=== PATIENT | female | born 2000 | race Caucasian/White ===

== ENCOUNTER → 2019-12-06 | Outpatient (CLI) | payer SELFPAY | END | disposition home or self-care (01) | PROVIDERS: Visit Provider Obstetrics & Gynecology | DX: Z12.4 Encounter for screening for malignant neoplasm of cervix (principal); Z11.3 Encounter for screening for infections with a predominantly sexual mode of transmission ==

== ENCOUNTER → 2019-12-15 14:56 | Outpatient (CLI) | payer OTHER, SELFPAY ==
[2019-12-15 15:48] LABS: Color, Urine Yellow (Yellow); Glucose, Dipstick Normal (Normal); Ketone-Dipstick Negative (Negative); Leukocyte Esterase-Dipstick 25 /ul (Negative); Nitrite-Dipstick Negative (Negative); Occult Blood-Urine Negative /ul (Negative); Protein-Dipstick Negative (Negative); Specific Gravity, Urine 1.015 (1.002-1.030); Urine Bilirubin Dipstick Negative (Negative); Urine Clarity Sl. Cloudy (Clear); Urine Urobilinogen Normal (Normal)
[2019-12-15 16:00] LABS: Absolute Lymphocyte Count 1.94 X10^3/uL (0.83-4.51); Absolute Neutrophil Count 7.3 X10^3/uL (2.0-7.7); Basophil# 0.02 X10^3/uL; Basophil% 0.2 % (0-1); Eosinophil# 0.09 X10^3/uL; Eosinophils% 0.9 % (0-5); Hematocrit 35.6 % (37-47); Hemoglobin 12.4 g/dL (12.0-15.0); Lymphocyte # 1.94 X10^3/ul (4.0); Lymphocyte % 19.3 % (19-41); Mean Corp Hgb Conc 34.8 g/dL (32-36); Mean Corpuscular Hgb 30.5 pg (27.0-32.0); Mean Corpuscular Volume 87.5 fL (81-99); Mean Platelet Vol. 9.6 fl (6.2-12.0); Monocyte# 0.65 X10^3/uL; Monocyte% 6.5 % (0-10); NRBC Flagged by Analyzer 0 % (0-5); Neutrophil # 7.31 X10^3/uL (2.7-7.7); Neutrophil % 72.6 % (47-70); Platelet Count 214 K/mm3 (150-450); RBC Distribution Width CV 12.7 % (11.6-14.6); RBC Distribution Width SD 40.2 fl (35.1-43.9); Red Blood Count 4.07 M/mm3 (4.2-5.4); White Blood Count 10.1 K/mm3 (4.4-11.0)
[2019-12-15 16:38] LABS: Thyroid Stim Hormone (TSH) 0.97 uIU/mL (0.358-3.74)
[2019-12-18 10:26] LABS: HIV - WCH Non-Reactive (Nonreactive); Hepatitis B Surface Antigen Non-Reactive (Nonreactive); Hepatitis C Antibody Non-Reactive (Nonreactive); Rubella IgG < 0.2 IU/mL
[2019-12-21 03:50] LABS: Prenatal RPR NONREACTIVE (NONREACTIVE)
== END ==
PROVIDERS: Visit Provider Obstetrics & Gynecology
DX: Z34.81 Encounter for supervision of other normal pregnancy, first trimester (principal)
CPT/HCPCS: 36415; 81002; 84443; 85025; 86703; 86762; 86803; 87340

== ENCOUNTER → 2020-04-11 09:28 | Outpatient (CLI) | payer OTHER, SELFPAY ==
[2020-04-11 11:27] LABS: Hematocrit 33.4 % (37-47); Hemoglobin 11.2 g/dL (12.0-15.0); Mean Corp Hgb Conc 33.5 g/dL (32-36); Mean Corpuscular Hgb 31.1 pg (27.0-32.0); Mean Corpuscular Volume 92.8 fL (81-99); Mean Platelet Vol. 9.2 fl (6.2-12.0); Platelet Count 253 K/mm3 (150-450); RBC Distribution Width CV 11.7 % (11.6-14.6); RBC Distribution Width SD 39.5 fl (35.1-43.9); White Blood Count 10.8 K/mm3 (4.4-11.0)
[2020-04-11 11:38] LABS: Glucose Challenge Gest 1H 50g 108 mg/dL (70-140)
== END ==
PROVIDERS: Visit Provider Obstetrics & Gynecology
DX: Z34.83 Encounter for supervision of other normal pregnancy, third trimester (principal)
CPT/HCPCS: 36415; 82950; 85027; 86900; 86901

== ENCOUNTER → 2020-05-31 | Outpatient (CLI) | payer OTHER, SELFPAY | END | disposition home or self-care (01) | LOC: LABSPEC 13:26 | PROVIDERS: Visit Provider Obstetrics & Gynecology | DX: Z36.85 Encounter for antenatal screening for Streptococcus B (principal) | CPT/HCPCS: 87081 ==

== ENCOUNTER → 2020-06-18 17:34 | Outpatient (CLI) | payer OTHER, SELFPAY | PROVIDERS: Visit Provider Obstetrics & Gynecology | DX: Z20.828 Contact with and (suspected) exposure to other viral communicable diseases (principal) | CPT/HCPCS: 87635; 94799; U0003 ==

== ENCOUNTER 2020-07-08 06:44 | Inpatient (IN) | payer SELFPAY, OTHER ==
[2020-07-08] VITALS (37 sets, daily range): BP systolic 110–130; BP diastolic 55–80; PULSE 55–127; TEMP 36.6–37.9; O2SAT 88–100; BMI 29.0
[2020-07-08] MEDS: Lactated Ringers 1,000 ML 50 ML IV (07:27)
[2020-07-08] MEDS: Oxytocin 30 units/NS 500 ml 30 UNITS/500 ML IV.SOLN IV (07:42)
[2020-07-08 07:48] LABS: Absolute Lymphocyte Count 1.82 X10^3/uL (0.83-4.51); Absolute Neutrophil Count 6.4 X10^3/uL (2.0-7.7); Basophil# 0.03 X10^3/uL; Basophil% 0.3 % (0-1); Eosinophil# 0.08 X10^3/uL; Eosinophils% 0.9 % (0-5); Hemoglobin 10.2 g/dL (12.0-15.0); Lymphocyte # 1.82 X10^3/ul (4.0); Lymphocyte % 19.8 % (19-41); Mean Corp Hgb Conc 32.9 g/dL (32-36); Mean Corpuscular Hgb 27.6 pg (27.0-32.0); Mean Corpuscular Volume 83.8 fL (81-99); Mean Platelet Vol. 9.7 fl (6.2-12.0); Monocyte# 0.79 X10^3/uL; Monocyte% 8.6 % (0-10); NRBC Flagged by Analyzer 0 % (0-5); Neutrophil # 6.39 X10^3/uL (2.7-7.7); Neutrophil % 69.6 % (47-70); Platelet Count 184 K/mm3 (150-450); RBC Distribution Width CV 14.5 % (11.6-14.6); RBC Distribution Width SD 43.1 fl (35.1-43.9); White Blood Count 9.2 K/mm3 (4.4-11.0)
--- NOTE | 2020-07-08 08:14 | HP.PCM_ITS ---
History and Physical Date of Admission: 07/08/[address] [facility] ANTEPARTUM RECORD - HISTORY AND PHYSICAL (07/08/2020) Name: GREGORY RANKIN History Of This : This is a 20-year-old G1, P0 who presents for postdates induction. care has otherwise been uneventful OB Physician: FRANCISCO 's Physician: UNDECIDED ...................................................................... : 2000 Age: 20 Address: [address] [place] [address] Phone: ([phone] ([phone] Insurance Carrier: [facility] [id number] Emergency Contact: ...................................................................... Final CHARU: 06/28/20 By Ultrasound: PARITY: (G-Total Pregnancies P-Fullterm,Premature,Induced AB,Spont AB, Ectopics, Multiple,Living) CHARU CONFIRMATION: By LMP: 09/22/19 Final CHARU: 06/28/20 OB PROBLEM LIST: Self pay. Declines AFP and CF testing. Please enc office Childbirth and Classes. ALLERGIES: No Known Drug Allergies MEDICATIONS: Supplement (s) [No Strength] Super Mom vitamins SOCIAL HISTORY: Smoking - Never Alcohol Use - None Diet - moderate, balanced diet, caffeine < 2 drinks per day and Water intake tries for 2-3 liters daily Lifestyle - Exercise - active w home and chores. Enc to walk 20 min daily. 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 Drug Use - denies use of street drugs Sexual Activity - ACTIVE ONE PARTNER Residence - owns a home Place of - [place] Spouse-Sig Other Name - Terrence Rankin Spouse-Sig Other Occupation - Stairbuilder for [employer] Spouse-Sig Other Phone No - home phone [phone] PRIOR DELIVERY HISTORY DEL DATE GEST LAB WT LB WT OZ TYPE ANES LABOR TX ANTEPARTUM FLOW CHART VISIT GE RTC FU F F IA U U DATE WK MD WKS HT PN HR M SS BP ED WT IA GL D EF ST __ ____ ___ __ __ ___ __ __ __ ___ __ __ __ ___ __ Jun 41 JM 6 41 V + + 110/66 0 165 - - 2 50 -3 Jun 39 CH 1 39 V + + 122/54 0 162 tr - ft -- -- 04 Jun 38 CH 1 37 V + + 110/68 sl 164 - - 30 May 37 CH 1 36 V + + 118/64 0 164 - - 23 May 36 CH 1 37 V + + 110/80 sl 164 - - May CH 1 36 V + + 110/80 sl 164 tr - Apr JMW 3 33 V + + 116/66 0 161 tr ne May 14 CH 2 30 V + + 124/62 0 159 - - April 11 CH 2 28 + + 110/58 0 156 - - 07 April 08 CH 2 25 + + 104/72 0 149 - - 07 Feb 21 / 143 28 Dec 31 CH 4 116/60 0 134 ne ne Nov 26 CH 4 on / 0 131 - - ANTEPARTUM NOTE(S): Jul 05 2020: Jun 27 2020: feeling well. Having cramps. Cervix check. Jun 18 2020: no complaints Jun 13 2020: Jun 06 2020: feeling well. GBS and LARC today. May 31 2020: feeling well. GBS and LARC papers done. May 09 2020: Good FM Apr 24 2020: Apr 11 2020: see note Mar 21 2020: see note Feb 20 2020: Jan 12 2020: Declines AFP and Declines CF Dec 15 2019: COMPREHENSIVE ANTEPARTUM NOTE(S): Jul 05 2020: Gregory is here at 41 w 0 d for a NST, for post-dates. EEFM/NST explained. She states that she feels okay, and reports good FM. She feels irregular mild cramping. Denies spotting/LoF. No edema noted. NST reactive, read per Dr. Albert Rankin. Three ctx's noted on EEFM during NST, Gregory states that she did not feel these. AW Jul 05 2020: Pt agreeable to IOL post dates. Scheduled for 06/07 at 0700. NST reactive. JM Jun 27 2020: Having some more cramping over the last week. Reports good FM. FHR 150. First SVE today ft/thick/high. Discussed intercourse and EPOO to help soften the cervix. Next visit if at least 1cm may want membrane sweep to avoid IOL. Discussed NST at next visit. If everything is going well and still , will return the following Wednesday for NST and PNV with IOL to be scheduled at that time. If needing IOL would like a gentle AROM. Understands 5-1-1 rule and when to call. If unsure about start of labor to call in. - CH Jun 18 2020: Gregory is here with SO for PNV. Good FM. Sl edema in feet. No complaints or concerns. Denied SVE. MK Jun 18 2020: FM+. FHR 136. Some cassie casey and same discharge as last week. Getting Covid tests today. Reviewed s/s of labor and when to call. States understanding. To return in 1 week for visit. - Jun 13 2020: Gregory is her for PNV today. Good FM. No edema. She is doing good ready for baby to get here. Medications and allergies reviewed today. LJW Jun 13 2020: +FM. FHR 150. Feels like baby has dropped with a lot more low pelvic pressure. Having more discharge, but no contractions yet. Covid testing orders wrote for her and to get done next week. Will do SVE next week with baby being so low. Wishes to avoid IOL and go on her own. To return in 1 week. - Jun 06 2020: Reports +FM. FHR 142. Vertex with lie on maternal left side. Discussed slighter movements now. Her and her will get covid testing done in a couple of weeks. Will defer SVE until after 38 weeks. Having numbness and itngling in hands. Discussed carpal tunnel in . Hers is worse overnight. To do hand/finger exercises before bed and to sleep with them elevated on pillows. Can take Tylenol or soak them in warm water even. To returnin 1 week. - Jun 04 2020: H taken to OB. tkg May 31 2020: Reports +FM. Was unsure if having cassie casey or movements. Discussed how to tell the difference. Educatd on SROM and how to tell the difference between urination, where to go after hours, and web services manager information. Reports mild pedal edema, but good today. Increase water, elevation, and compression socks if needed. Will return in 1 week. - May 09 2020: Reports +FM. FHR_. Has with her today. Feeling well. Discussed early signs and symptoms of labor and when to call. To return in 2 weeks for rotine PNV- May 09 2020: Gregory is her for PNV. Has with her today. FM is good. She is feeling well. She states that she had some swelling 1 day but nothing to speak of. No other complaints or concerns were voiced. Medication and Hx reviewed. LJW Apr 24 2020: Gregory is doing well. Good FM. Voicing No concerns today. Apr 24 2020: Reports +FM. FHR 140. Feeling well. Reviewed 3rd trimester labs. Has small ordaz on her butt that shes concerned about. Discussed stretch ordaz can appear on the abdomen, bottom, thighs, legs etc. To keep skin hydrated and it's mostly genetics. Wants to bring to next visit. Which is okay. To return in 2 weeks for routine PNV. [facility] Apr 11 2020: Gregory is here for a PNV. 28 weeks and 6 days. Good FM. No edema reported but she says she noticed her veins are more apparent than usual. No complaints or concerns expressed at this time. 28 week labs due today at 9:50am. Apr 11 2020: Feeling well today with +FM. FHR 148. Discussed web services manager list and web services manager vs family MD. Will call them and see who would take their family. Is getting labs drawn today and understands no news is good news. Will call with abnormals and if needing a 3 hour GTT. Discussed FM and kick counts in final trimester. Understands when to call. TO return in 2 weeks for routine PNV. [facility] Mar 21 2020: Gregory is here for a PNV. States she was feeling good FM, but it has decreased in the past 2 days. No movement at all yesterday /, felt FM 1- 2x this morning 03/21. No edema reported. Gave glucola and instructions for next visit. Mar 21 2020: 26wk gest. Reports +FM. FHR 158. Reviewed glucola and 3rd trimester labs with rhogam to be given at that time. States is O- blood type as well and will bring in his card next visit to avoid rhogam. Was feeling decreased movements, but discussed not regular until 3rd trimester. Understands now how to do kick counts and when to call. To return in 3 weeks and continue Q2 week appts. - Feb 20 2020: Telehealth appt due to Covid-19 precautions. Home phone only for calls. Did not want anatomy US so not scheduled to come in to the office. Reports feeling FM now. Is generally feeling well. Was getting very tired so started taking liquid iron in the afternoon. She feels like this helps with evening fatigue a lot. Is able to stay home and is avoiding crowds etc. Understands in 4 weeks we will liekly do telehealth appt again, unless things look better. Then we could do in person or if she has any concerns. She was worried about how baby was doing, but now that she is feeling movements shes much less concerned. Discussed sporatic movements until 28 weeks so to not get concerned if theres no pattern etc. Does understand that the office is still open daily with the 24/ nurse triage line so is she does have questions or concerns to let us know. Will do glucola and CBC at 28 week appt with rhogam so will need to come in for that one. Wants to sign up for March class. Encouraged to call the office commercial front load operator and speak with them about scheduling because I was unsure whether Fox class had been cancelled for Covid or not. SHe will call after. 12 minutes spent on the phone. - Jan 12 2020: (*) Routine PNV. Discussed FM felt sometime between 16-20 or so weeks with first time moms, but not regular until 28 weeks. FHR today 150. Feeling well still having nausea. PNV is making her sick so will cut in half. Wants to take extra calcium for her teeth and advised milk intake. In 6 weeks will return for PNV and does not want anatomy US. - Dec 15 2019: Gregory and her , Terrence are here for NOB nurse visit planning a vag del at [facility] with CHARU 8-14-20 uncertain of epidural or ped care post discharge. She plans to breastfeed. 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 They are pleased about the . Gregory is a lifetime non smoker, non drinker and denies street drug use past or present. Her diet is well balanced w minimal caffeine and 2-3 liters of water most days. The importance of protein in her diet discussed. She is active w her home and chores. Enc walking 20 min daily unless inclement weather. Genetics Screening form completed noting a cousin w spina bifida. They decline AFP and CF tests. Warning signs in pg discussed as well as OTC meds ok to take, lifting restrictions of 20-25#, reaching the office after hours and seatbelt use. Advised to ALWAYS wear seatbelt no matter which seat position in the vehicle and wear it low under her abdomen. Currently they only wear it if passenger in the front seat. Her medical history includes chickenpox and whooping cough. They have no cats. She is aware of litter box issues. Routine labs drawn without u tox or suni screens. US done today. They have a copy of What to Expect. Info on office Childbirth and Classes given. Enc to call w any concerns. Visit took approx 45 min. Roe DASH. Dec 15 2019: NOB US today with IUP seen, dates consistent with LMP. CHARU 06/15 03/04 with GA 12.0wk. FHR 144. NOB RN appointment with EPDS=4. States mild anxiety, but not much. Is okay right now. Has no questions over everything Kathrine reviewed. Still has questions on if she is taking too much folic acid. Taking over 2000mcg a day. Reminded her that her normal has plenty in it and to stop taking the extra two folic acid tablets a day. Still reports mild nausea, but chews peppermint gum which helps. Reminded her she shjould start feeling better in the next couple of weeks with hormones leveling off. Will get labwork today. Understands no news is good news. Reviewed pap and negative cultures. TO return in 4 weeks for routine PNV. - Dec 06 2019: Gregory is being seen for missed menses. Pt is new to facility. is with pt for visit today. UPT in office is positive. LMP 11-5-19. pt is about 10 weeks and 5 days. CHARU 06-28-20. Pap due today and cultures to be added. Pt has some nausea on and off. She is taking pnv and super mom vitamins. Medications and allergies are up to date. AM Dec 06 2019: Missed mesnes with LMP 11-5-19. CHARU 06-28-20 with GA 10w5d. Here with who appears supportive. First . Has a mother who delivered on in the hospital at [place] and a ENRRIQUE who delivered at the center. Not much or infant exposure. Oriented to practice and CNM care with OB collaboration. Educated on Pap procedure and walked her through it, tolerated well for first exam. Explained if negative then repeat in 3 years. Head to toe negative. Denies chronic health issues. Has had nausea on and off, but feeling better. NOB packet reviewed including practice education, classes, registration, OTC medication, common problem list, and diet/exercise. Reviewed visit schedule, US schedule and lab schedule and what to expect at each visit. Will return in 2 weeks for routine PNV with NOB US, NOB RN appt, and labs. States no questions or concerns. -CH REVIEW OF SYSTEMS: GENERAL - Denies fever, or chills SKIN - Denies rash, new skin lesions, or change in moles EYES - Denies blurred vision, or change in visual acuity EARS - Denies ear pain, or difficulty hearing NOSE - Denies nasal congestion, discharge, or bleeding MOUTH - Denies sore throat, or difficulty swallowing NECK - Denies pain or swelling RESPIRATORY - Denies shortness of breath, cough, wheezing CARDIOVASCULAR - Denies palpitations, chest pain, orthopnea, PND, peripheral edema, syncope or claudication GASTROINTESTINAL - Denies nausea, vomiting, diarrhea, constipation, Denies abdominal pain, melena and or bright red blood GENITOURINARY - Denies dysuria, frequency of urination, urgency, or hesitancy MUSCULOSKELETAL - Denies joint or muscle pain, or back pain NEUROLOGICAL - Denies localized numbness, weakness, or tingling PSYCHIATRIC - Denies depression, anxiety, substance abuse or suicide attempts ENDOCRINE - Denies heat or cold intolerance, weight loss or gain, increasing thirst HEMATO-IMMUNOLOGIC - Denies easy bruising, bleeding, oral ulcerations or recurrent infections GENETICS SCREENING: Age 35+ years: No Thalassemia: No Neural Tube Defect: Yes cousin Down Syndrome: No ANEL-SACHS: No Sickle Cell Disease: No Hemophilia: No Musc. Dystrophy: No Cystic Fibrosis: No-declines screening Kevyn Chorea: No Mental Retardation: No Fragile X: No Other genetic: No Other defects: No SABs/still births: No Drugs since LMP: No INFECTION HISTORY: High risk AIDS: No High risk Hepatitis: No Exposed to TB: No Exposed to Herpes: No Rash/viral illness since LMP: No History of STD: No MENSTRUAL HISTORY: *Menses Amount/Duration: 5 to 7 daysMenses Regularity: RegularFrequency: monthly* PAST SUMMARY: PARITY: 1. Total Pregnancies............ 1 2. Full Term Pregnancies........ 0 3. Premature.................... 0 4. Abortions - Induced.......... 0 5. Abortions - Spontaneous...... 0 6. Ectopics..................... 0 7. Multiple Births.............. 0 8. Living Children.............. 0 PHYSICAL EXAMINATION General Appearence: 20 yo female in no acute distress Vital Signs: AF, VSS Heart: RRR without rubs or gallops Lungs: CTA x 2 Breasts: deferred Abdomen: gravid Pelvis: Cervix: 2/50 Presentation: cephalic Station: -3 Fetus: Size: AGA Movement: present Heart: present Labs for : GREGORY RANKIN since 10/02/2019 ORDER DATEIN DESCRIPTION VALUE UNITS RANGE A+ COMMENT CORONAVIRUS 19, MAMIE [facility] 06/18/20 NOTE Original Ordering Provider: MILLER Askew COVID-19,MAMIE Not Detected Not Detect This test was developed and its performance characteristics determined by [employer]. This test has not been FDA cleared or approved. This test has been authorized by FDA under an Emergency Use Authorization (EUA). This test is only authorized for the duration of time the declaration that circumstances exist justifying the authorization of the emergency use of in vitro diagnostic tests for detection of SARS-CoV-2 virus and/or diagnosis of COVID-19 infection under section 564(b)(1) of the Act, 21 U.S.C. 360bbb-3(b)(1), unless the authorization is terminated or revoked sooner. When diagnostic testing is negative, the possibility of a false negative result should be considered in the context of a patient's recent exposures and the presence of clinical signs and symptoms consistent with COVID-19. An individual without symptoms of COVID-19 and who is not shedding SARS-CoV-2 virus would expect to have a negative (not detected) result in this assay. TESTING PERFORMED AT [facility]. [address] [place] [place] [id number]. ORIGINAL REPORT ON FILE IN LAB CONTAINS ADDITIONAL TEST SITE INFORMATION. Reviewed by FRANCISCO CULTURE, GROUP B STREPTOCOCCUS 05/31/20 NOTE Original Ordering Provider: MILLER Askew Comments: VAGINAL/RECTAL NANCY Culture Group B Beta Streptococcus is not isolated. Reviewed by FRANCISCO Reviewed by FRANCISCO GLUCOSE CHALLENGE GEST 1H 50G 04/11/20 NOTE Original Ordering Provider: MILLER Askew GLU GEST 50G 1H 108 mg/dL 70-140 Reviewed by FRANCISCO CBC-COMPLETE BLOOD CNT NO DIFF 04/11/20 NOTE Original Ordering Provider: MILLER Askew WBC 10.8 K/mm3 4.4-11.0 RBC 3.60 M/mm3 4.2-5.4 L HGB 11.2 g/dL 12.0-15.0 L HCT 33.4 % 37-47 L MCV 92.8 fL 81-99 MCH 31.1 pg 27.0-32.0 MCHC 33.5 g/dL 32-36 RDW CV 11.7 % 11.6-14.6 RDW SD 39.5 fl 35.1-43.9 PLT 253 K/mm3 150-450 MPV 9.2 fl 6.2-12.0 Reviewed by FRANCISCO RPR 12/15/19 NOTE Original Ordering Provider: MILLER Askew w RPR NONREACTIVE NONREACTIVE Reviewed by FRANCISCO HEPATITIS C ANTIBODY 12/15/19 NOTE Original Ordering Provider: MILLER Askew HEPATITIS C AB Non-Reactive Nonreactive Non Reactive: < 0.8 Equivocal: >/= 0.8 to < 1.0 Reactive: >/= 1.0 The CDC recommends that a reactive/equivocal HCV antibody result be followed up by the HCV Nucleic Acid Amplification test (096480) Reviewed by FRANCISCO HEPATITIS B SURFACE ANTIGEN 12/15/19 NOTE Original Ordering Provider: MILLER Askew HEPB SURFACE AG Non-Reactive Nonreactive Reviewed by FRANCISCO HIV - H 12/15/19 NOTE Original Ordering Provider: MILLER Askew HIV - [facility] Non-Reactive Nonreactive Reviewed by FRANCISCO RUBELLA IGG 12/15/19 NOTE Original Ordering Provider: MILLER Askew RUBELLA IGG < 0.2 IU/mL Antibody results Interpretation of Immune Status < 5 IU/ml Presumed Non-immune 5 - < 10 IU/ml Equivocal > or = 10 IU/ml Presumed Immune Reviewed by FRANCISCO T AND S-NO CHARGE W/PNP 12/15/19 Reason for Type AND Screen/Red Cells: Surgery? N [facility]~[address] [place], [address]~ BLOOD TYPE GEL O NEGATIVE N AB SCREEN GEL NEGATIVE N Reviewed by FRANCISCO THYROID STIM HORMONE (TSH) 12/15/19 NOTE Original Ordering Provider: MILLER Askew TSH 0.97 uIU/mL 0.358-3.74 Reviewed by FRANCISCO CBC W/DIFF, AUTOMATED 12/15/19 NOTE Original Ordering Provider: MILLER Askew WBC 10.1 K/mm3 4.4-11.0 RBC 4.07 M/mm3 4.2-5.4 L HGB 12.4 g/dLw 12.0-15.0 HCT 35.6 % 37-47 L MCV 87.5 fL 81-99 MCH 30.5 pg 27.0-32.0 MCHC 34.8 g/dL 32-36 RDW CV 12.7 % 11.6-14.6 RDW SD 40.2 fl 35.1-43.9 PLT 214 K/mm3 150-450 MPV 9.6 fl 6.2-12.0 NEUT% 72.6 % 47-70 H LY% 19.3 % 19-41 MONO% 6.5 % 0-10 EO% 0.9 % 0-5 BASO% 0.2 % 0-1 IM GRAN % 0.500 % 0.0-0.9w IG% - Immature Granulocytes (promyelocytes, myelocytes and metamyelocytes) > 1% indicates that a LEFT SHIFT is Present. ABSOLUTE NEUT 7.3 X10 3/uL 2.0-7.7 ABSOLUTE LYMPH 1.94 X10 3/uL 0.83-4.51 NRBC, FLAGGED 0 % 0-5 Reviewed by FRANCISCO URINALYSIS, ROUTINE (DIPSTICK) 12/15/19 NOTE Original Ordering Provider: MILLER Askew COLOR Yellow Yellow CLARITY Sl. Cloudy Clear GLUCOSE, UR Normal mg/dl Normal BILIRUBIN URINE Negative mg/dL Negative KETONE UR Negative mg/dl Negative SP.GR. DIPSTX 1.015 1.002-1.030 PH UR 6.0 5.0 - 8.0 PROT DIPSTX Negative mg/dl Negative UROBILI Normal mg/dl Normal NITRITE UR Negative Negative OCCULT BLOOD-UR Negative /ul Negative r LEUK ESTERASE 25 /ul Negative H Reviewed by FRANCISCO MISCELLANEOUS LAB PROCEDURE 12/06/19 NOTEw Original Ordering Provider: MILLER Askew [facility] IGP, Aptima HPV Age Gdln, CtNgTv Interpretatin: NEGATIVE FOR INTRAEPITHELIAL LESION AND MALIGNANCY. Specimen Adequacy: Satisfactory for evaluation. No endocervical component is identified. An endocervical component is not commonly seen in the patient. Comments: The pap smear is a screening test designated to aid in the detection of pre-malignant and malignant conditions of the uterine cervix. It is not a diagnostic procedure and should not be used as the sole means of detecting cervical cancer. Both false-positive and false-negative reports do occur. This liquid based ThinPrep(R) pap test was screened with the use of an image guided system. Performed by Ysabel Hendricks [employer] (ASCP) The HPV DNA reflex criteria were not met with this specimen result therefore, no HPV testing was performed. Age Gldn ACOG Testin-29 Other Results: Chlamydia, Nuc. Acid Amp: Negative Gonococcus, Nuc. Acid Amp: Negative Trich vag by MAMIE: Negative TESTING PERFORMED AT [facility]. ORIGINAL REPORT ON FILE IN LAB CONTAINS ADDITIONAL TEST SITE INFORMATION. Reviewed by FRANCISCO Impression /Plan: 41+ week intrauterine for induction. Plan Pitocin and rupture of membranes. Preparations in progress for delivery.
[2020-07-08] MEDS: 0.9% Saline Lock 10 ML Syringe IV ×2 (16:31→23:13)
[2020-07-08] MEDS: Ondansetron 4 MG/2 ML Vial IV (16:31)
--- NOTE | 2020-07-08 19:18 | PN.OBGYN_ITS ---
- Physical Exam Vitals/I&O's: Vital Signs Temp Pulse BP Pulse Ox 98.2 F 68 113/59 L 100 07/08/20 18:38 07/08/20 18:40 07/08/20 18:40 07/08/20 18:39 Weight: 74.3 kg Body Mass Index (BMI) 29.0 Intake and Output for Last 24 Hours 07/06/20 07/07/20 07/08/20 23:59 23:59 23:59 Intake Total 844.4 / 844.4 Output Total 250 / 250 Balance 594.4 / 594.4 Laboratory Results 07/08/20 07:30: WBC 9.2, RBC 3.70 L, Hgb 10.2 L, Hct 31.0 L, MCV 83.8, MCH 27.6, MCHC 32.9, RDW Std Deviation 43.1, RDW Coeff of Martinez 14.5, Plt Count 184, MPV 9.7, Immature Gran % (Auto) 0.800, Neut % (Auto) 69.6, Lymph % (Auto) 19.8, Grainger % (Auto) 8.6, Eos % (Auto) 0.9, Baso % (Auto) 0.3, Absolute Neuts (auto) 6.4, Absolute Lymphs (auto) 1.82, Nucleated RBC % 0 07/08/20 07:30: Blood Type O NEGATIVE, Antibody Screen NEGATIVE Current Medications Acetaminophen (Tylenol) 325 - 650 mg PO Q4H PRN PRN PRN Reason: Pain Score 1-3/10 Al Hydroxide/Mg Hydroxide (Mylanta Ii) 15 - 30 ml PO Q4H PRN PRN PRN Reason: INDIGESTION Citric Acid/Sodium Citrate (Bicitra) 30 ml PO X1 PRN PRN Reason: Section Fentanyl Citrate (Sublimaze (100mcg Ampule)) 25 - 50 mcg IV Q2H PRN PRN PRN Reason: Pain Score 4-10/10 Lactated Ringer's () 500 mls @ 999 mls/hr IV .Q31M PRN PRN Reason: Epidural Lactated Ringer's () 500 mls @ 999 mls/hr IV .Q31M PRN PRN Reason: Corrective Measures Lactated Ringer's () 1,000 mls @ 50 mls/hr IV .Q20H VERNON Last Admin: 07/08/20 07:27 Dose: 50 mls/hr Documented by: Oxytocin/Sodium Chloride () 30 units in 500 mls @ 2 mls/hr IV .Q250H VERNON Last Infusion: 07/08/20 14:14 Dose: 10 mls/hr Documented by: Ondansetron HCl (Zofran) 4 mg IV Q4H PRN PRN PRN Reason: NAUSEA Last Admin: 07/08/20 16:31 Dose: 4 mg Documented by: Prochlorperazine Edisylate (Compazine Iv) 10 mg IV Q6H PRN PRN PRN Reason: NAUSEA Sodium Chloride () 10 - 40 ml IV X1 PRN PRN Reason: SALINE FLUSH Last Admin: 07/08/20 16:31 Dose: 10 ml Documented by: Medical Necessity - Tobacco Use Smoking Status: Never smoker Assessment/Plan CE /0. Pt continues to progress without epidural. FHR 120/mod martinez/+accel/no decel. q3 ctx. Cat 1. Continue current management.
[2020-07-08] MEDS: Oxytocin 30 units/NS 500 ml 30 UNITS/500 ML IV.SOLN 334 UNITS IV (20:25)
[2020-07-08] MEDS: Methylergonovine 0.2 MG/ML Ampul IM (20:26)
--- NOTE | 2020-07-08 21:12 | PCM.OPRPT ---
Vaginal Delivery Maternal Presentation: Elective Induction - Post dates Method of Induction: Pitocin Medical Reason for Induction: Post term Amniotic Membrane Rupture Type: Spontaneous Amniotic Fluid Description: Clear Date of Procedure: 07/08/20 Pre-Operative Diagnosis: Connelly intrauterine at 41/3w Post-Operative Diagnosis: Connelly intrauterine at 41/3w, third degree laceration Surgery/ Procedure Performed: Spontaneous Vaginal Delivery Type of Anesthesia: Local with 1% lidocaine Description of Procedure: Normal spontaneous vaginal delivery in cephalic presentation, AMBERLY. No nuchal cord. Baby to mom. Cord clamped and cut. Spontaneous delivery of placenta. Third degree laceration noted. Lidocaine for anesthesia. Repaired in usual fashion. Superficial right vaginal side wall laceration, repaired with two figure of eight sutures. Hemostatic. EBL 800cc. IM methergine given x1. APGARS 8/9. Cord Vessel Description: 3 Vessels Infant A gender: Female (1 minute): 8 (5 minute): 9
--- NOTE | 2020-07-08 21:23 | DCINST_ITS ---
<Paola Kinney - Last Filed: 07/08/20 21:23> Discharge Activity: Return to Normal Activity, May Shower May resume sexual activity in: 6 weeks Weight Bearing Status: Weight bearing as tolerated Call your doctor if your incision/area has: Increased Pain/ Swelling, Increased Redness, Foul Smelling Discharge Call your doctor if you observe: Fever of 101 or Higher, Inability to urinate, Inability to have a bowel movement, Using more than one pad per hour Additional Instructions: If you experience any of the following, contact your healthcare provider. * Bleeding that soaks a pad every hour for 2 hours * Fever 100.4 or higher * Unrelieved incision or abdominal pain * Swelling, redness, discharge or bleeding from your incision or episiotomy site * Your incision begins to separate * Problems urinating (including inability to urinate or burning while urinating). * Visual changes * Severe headache * Flu-like symptoms * Pain or redness in one of both of your breasts * Pain, warmth, tenderness or swelling in your legs, especially the calf area * Frequent nausea and vomiting * Symptoms of depression or anxiety If you experience any of the following, call 911 or go to the nearest Emergency Room. * Chest pain * Problems breathing * Seizure activity * Partial or complete paralysis of a body part, slurred speech, weakness or drooping of the face, or a sudden inability to walk or hold your balance Allergies/Adverse Reactions: Allergies No Known Allergies Allergy (Verified 07/08/20 07:15) Please Follow Up With: Rosario Askew CNM When: 6 weeks Primary Care Physician: Care Physician,No Primary [Primary Care Provider] - Test Results: Test results from this visit will be discussed in further detail at your follow- up appointment, if applicable. Proposed Discharge Date: 07/10/20 <Rosario Askew - Last Filed: 07/10/20 08:40> Additional Instructions: If you experience any of the following, contact your healthcare provider. * Bleeding that soaks a pad every hour for 2 hours * Fever 100.4 or higher * Unrelieved incision or abdominal pain * Swelling, redness, discharge or bleeding from your incision or episiotomy site * Your incision begins to separate * Problems urinating (including inability to urinate or burning while urinating). * Visual changes * Severe headache * Flu-like symptoms * Pain or redness in one of both of your breasts * Pain, warmth, tenderness or swelling in your legs, especially the calf area * Frequent nausea and vomiting * Symptoms of depression or anxiety If you experience any of the following, call 911 or go to the nearest Emergency Room. * Chest pain * Problems breathing * Seizure activity * Partial or complete paralysis of a body part, slurred speech, weakness or drooping of the face, or a sudden inability to walk or hold your balance When: Call for a 2 week telehealth appointment and a 6 week routine appointment. Test Results: Test results from this visit will be discussed in further detail at your follow- up appointment, if applicable.
[2020-07-09] VITALS (11 sets, daily range): BP systolic 106–128; BP diastolic 54–72; PULSE 86–125; RESP 16–18; TEMP 36.8–37.7; O2SAT 99
--- NOTE | 2020-07-09 00:06 | NURSING ---
this RN handed off pt care of bertin DASH. that rn to assume care of pt at this time.
--- NOTE | 2020-07-09 07:38 | PCM.PN.OB ---
Subjective: Objective: No overnight complaints. Pain well controlled. Denies VB, CP, SOB - Physical Exam Vitals/I&O's: Vital Signs Temp Pulse Resp BP Pulse Ox 98.6 F 111 H 16 118/67 98 07/09/20 04:20 07/09/20 04:21 07/09/20 04:20 07/09/20 04:21 07/08/20 22:35 Oxygen Delivery Method Room Air Weight: 163 lb 12.855 oz Body Mass Index (BMI) 29.0 Intake and Output for Last 24 Hours 07/07/20 07/08/20 07/09/20 23:59 23:59 23:59 Intake Total 3046.57 / 3046.57 100 / 100 Output Total 250 / 250 800 / 800 Balance 2796.57 / 2796.57 -700 / -700 General: Alert, Oriented x3, Cooperative, No apparent distress HEENT: Atraumatic, PERRLA, Normocephalic Oral: Moist Mucosa Neck: Supple Abdomen: Bowel Sounds Present, Soft, Non Tender, Non-Distended, Gravid - fundus below umbilicus Extremities: No edema Psych/Mental Status: Normal Affect, Appropriate, Alert and oriented to time, place, person, mood and affect Laboratory Results 07/08/20 07:30: WBC 9.2, RBC 3.70 L, Hgb 10.2 L, Hct 31.0 L, MCV 83.8, MCH 27.6, MCHC 32.9, RDW Std Deviation 43.1, RDW Coeff of Martinez 14.5, Plt Count 184, MPV 9.7, Immature Gran % (Auto) 0.800, Neut % (Auto) 69.6, Lymph % (Auto) 19.8, Kaufman % (Auto) 8.6, Eos % (Auto) 0.9, Baso % (Auto) 0.3, Absolute Neuts (auto) 6.4, Absolute Lymphs (auto) 1.82, Nucleated RBC % 0 07/08/20 07:30: Blood Type O NEGATIVE, Antibody Screen NEGATIVE Current Medications Bisacodyl (Dulcolax) 10 mg RECTAL UD PRN PRN Reason: If no BM Dibucaine (Dibucaine) 1 applic TOPICAL TID PRN PRN; Protocol PRN Reason: Discomfort Hydrocortisone (Hytone) 1 applic TOPICAL TID PRN PRN; Protocol PRN Reason: Discomfort Ibuprofen (Motrin) 600 mg PO Q6H PRN PRN PRN Reason: Pain Score 1-3/10 Methylergonovine Maleate (Methergine) 0.2 mg IM X1 PRN PRN Reason: Excess bleeding/uterine atony Last Admin: 07/08/20 20:26 Dose: 0.2 mg Documented by: Senna/Docusate Sodium (Senokot-S, Yessenia-Colace) 1 - 2 tablet PO DAILY PRN PRN PRN Reason: Constipation Simethicone (Mylicon) 80 mg PO PCHS PRN PRN Reason: Indigestion/Stomach pain Medical Necessity - Tobacco Use Smoking Status: Never smoker Assessment/Plan PPD#1 s/p , complicated by 3rd degree laceration. Pain well controlled, swelling wnl. Continue stool softeners. Breast feeding. Home today or tomorrow
[2020-07-09] MEDS: Senna/Docusate Sodium 1 Tablet PO (08:45)
[2020-07-09] MEDS: Ibuprofen 600 MG Tablet PO ×2 (08:45→14:42)
[2020-07-10 01:44] VITALS: BP 109/53
[2020-07-10 01:45] VITALS: BP 109/53; PULSE 79; PULSE 84; RESP 16; TEMP 36.3; O2SAT 95; O2SAT 98
--- NOTE | 2020-07-10 04:04 | NURSING ---
Discussed MMR vaccine with pt and rubella nonimmune status. Pt refused MMR vaccine.
[2020-07-10 08:28] VITALS: BP 107/55; PULSE 82
[2020-07-10 08:30] VITALS: BP 107/55; PULSE 82; RESP 14; TEMP 36.9
--- NOTE | 2020-07-10 08:40 | PN.OBGYN_ITS ---
Subjective: Reports feeling well this morning. Her whole body is a little sore from being in the bed, but her vaginal pain isn't too bad. She is no longer taking medication for discomfort. is going well. Denies heavy bleeding. Would like to discharge this AM. Objective: VSS. Lochia rubra light. Fundus is firm, midline, u/1. - Physical Exam Vitals/I&O's: Vital Signs Temp Pulse Resp BP Pulse Ox 97.4 F L 82 16 107/55 L 95 07/10/20 01:45 07/10/20 08:28 07/10/20 01:45 07/10/20 08:28 07/10/20 01:45 Oxygen Delivery Method Room Air Weight: 74.3 kg Body Mass Index (BMI) 29.0 Intake and Output for Last 24 Hours 07/08/20 07/09/20 07/10/20 23:59 23:59 23:59 Intake Total 3046.57 / 3046.57 100 / 100 Output Total 250 / 250 800 / 800 Balance 2796.57 / 2796.57 -700 / -700 General: Alert, Oriented x3, Cooperative HEENT: Atraumatic, PERRLA, EOMI, Normocephalic Neck: Supple, No JVD, Negative Carotid Bruits Lungs: Clear to auscultation, Normal air movement Cardiovascular: Regular rate, No murmurs Abdomen: Bowel Sounds Present, Soft, Non Tender Extremities: No edema, Capillary Refill Less than 3 Seconds Skin: No rashes, No breakdown Musculoskeletal: No Tenderness to Palpation of Joints or Extremities Neurological: Cranial nerves II-XII grossly intact Psych/Mental Status: Normal Affect, Appropriate Current Medications Bisacodyl (Dulcolax) 10 mg RECTAL UD PRN PRN Reason: If no BM Dibucaine (Dibucaine) 1 applic TOPICAL TID PRN PRN; Protocol PRN Reason: Discomfort Hydrocortisone (Hytone) 1 applic TOPICAL TID PRN PRN; Protocol PRN Reason: Discomfort Ibuprofen (Motrin) 600 mg PO Q6H PRN PRN PRN Reason: Pain Score 1-3/10 Last Admin: 07/09/20 14:42 Dose: 600 mg Documented by: Methylergonovine Maleate (Methergine) 0.2 mg IM X1 PRN PRN Reason: Excess bleeding/uterine atony Last Admin: 07/08/20 20:26 Dose: 0.2 mg Documented by: Senna/Docusate Sodium (Senokot-S, Yessenia-Colace) 1 - 2 tablet PO DAILY PRN PRN PRN Reason: Constipation Last Admin: 07/09/20 08:45 Dose: 2 tablet Documented by: Simethicone (Mylicon) 80 mg PO PCHS PRN PRN Reason: Indigestion/Stomach pain Medical Necessity - Tobacco Use Smoking Status: Never smoker Assessment/Plan A/P: S/P Day #2 mother 3rd degree laceration, with pain well controlled PPH with stable lochia rubra To follow up in 2 weeks for a telehealth appt and a 6 week routine appt To call chemical instrumentation officer OB number if having any questions or concerns Discharge home today with dyad stable
[2020-07-10] MEDS: Ibuprofen 600 MG Tablet PO (10:29)
== END 2020-07-10 10:35 | disposition home or self-care (01) | DRG 768 ==
PROVIDERS: Admitting Provider Obstetrics & Gynecology; Referring Provider Obstetrics & Gynecology; Visit Provider Obstetrics & Gynecology
DX: O48.0 Post-term pregnancy (principal); Z37.0 Single live birth; O70.20 Third degree perineal laceration during delivery, unspecified; Z3A.41 41 weeks gestation of pregnancy
CPT/HCPCS: 59025; 59050; 85025; 86850; 86900; 86901; 99218; J7120; A4216; G0378; J2405

== ENCOUNTER → 2022-08-27 | Outpatient (CLI) | payer OTHER, SELFPAY | END | disposition home or self-care (01) | LOC: LABSPEC 16:39 | PROVIDERS: Visit Provider Obstetrics & Gynecology | DX: Z34.90 Encounter for supervision of normal pregnancy, unspecified, unspecified trimester (principal) | CPT/HCPCS: 87086; 87088 ==

== ENCOUNTER → 2022-11-12 | Outpatient (CLI) | payer SELFPAY, OTHER ==
--- NOTE | 2022-11-12 07:54 | US_ITS ---
STUDY: SECOND AND THIRD TRIMESTER OBSTETRICAL ULTRASOUND REASON FOR EXAM: Female, 22 years old routine survey LMP: 06/18/2022 TECHNIQUE: Transabdominal and Transvaginal TECHNICAL QUALITY: Adequate. PRIOR ULTRASOUND: None. FINDINGS: There is a single intrauterine fetus. The fetus is in a cephalic presentation. There is demonstrated cardiac activity with a heart rate of 150 bpm. There is a subjectively normal amniotic fluid volume. The largest amniotic fluid pocket measures 5.4 cm. . The placenta is posterior in location and is not low lying. There are Grade 0 placental changes. The cervix measures 4.6 cm in length. The bilateral adnexal regions are normal. BIOMETRY: BPD: 4.76 cm: 20 weeks, 3 days HC: 18.19 cm: 20 weeks, 4 days AC: 16.50 cm: 21 weeks, 4 days FL: 3.39 cm: 20 weeks, 4 days age by current US: 20 weeks, 5 days. CHARU by current US: 03/27/2023. Estimated weight: 397 grams, +/- 60 grams, 49 %. Age by LMP: 21 weeks, 0 days. CHARU by LMP: 03/25/2023. ANATOMY: Gender: Indeterminant Cranium: Normal lateral ventricles. Normal choroid plexus. Normal cerebellum. Normal cisterna magna. Normal face, nose and lips. Chest: Normal 4-chamber heart. Abdomen/Pelvis: Normal diaphragm. Normal stomach. Normal abdominal wall. Normal cord insertion. Normal 3 vessel cord. Normal kidneys. Normal bladder. Spine: Normal cervical spine. Normal thoracic spine. Normal lumbar spine. Normal sacrum. Extremities: Normal bilateral upper extremities. Normal bilateral lower extremities. US/OB Anatomy Scan IMPRESSION: Single live intrauterine at 20 weeks, 5 days by current ultrasound CHARU 03/27/2023. Heart rate of 150 bpm. No suspicious sonographic findings. anatomy is sonographically normal Electronically Signed: Ryan Kirkland MD at 14:58 EST ,
[2022-11-12 09:50] LABS: Absolute Lymphocyte Count 1.75 X10^3/uL (0.83-4.51); Absolute Neutrophil Count 6.4 X10^3/uL (2.0-7.7); Basophil# 0.02 X10^3/uL; Basophil% 0.2 % (0-1); Eosinophils% 1.1 % (0-5); Hematocrit 36.5 % (37-47); Hemoglobin 12.7 g/dL (12.0-15.0); Lymphocyte # 1.75 X10^3/ul (0.83-4.51); Lymphocyte % 19.8 % (19-41); Mean Corp Hgb Conc 34.8 g/dL (32-36); Mean Corpuscular Hgb 31.5 pg (27.0-32.0); Mean Corpuscular Volume 90.6 fL (81-99); Mean Platelet Vol. 8.8 fl (6.2-12.0); Monocyte# 0.57 X10^3/uL; Monocyte% 6.4 % (0-10); NRBC Flagged by Analyzer 0 % (0-5); Neutrophil # 6.37 X10^3/uL (2.7-7.7); Platelet Count 190 K/mm3 (150-450); RBC Distribution Width CV 13.9 % (11.6-14.6); Red Blood Count 4.03 M/mm3 (4.2-5.4); White Blood Count 8.9 K/mm3 (4.4-11.0)
[2022-11-12 10:20] LABS: Rubella IgG Non-Reactive (Nonreactive)
== END | disposition home or self-care (01) ==
PROVIDERS: Referring Provider Obstetrics & Gynecology; Visit Provider Registered Nurse
DX: Z34.90 Encounter for supervision of normal pregnancy, unspecified, unspecified trimester (principal); Z3A.20 20 weeks gestation of pregnancy
CPT/HCPCS: 36415; 76805; 76817; 85025; 86762; 86850; 86900; 86901

== ENCOUNTER → 2023-01-04 | Outpatient (CLI) | payer OTHER, SELFPAY ==
[2023-01-04 14:16] LABS: Absolute Lymphocyte Count 1.96 X10^3/uL (0.83-4.51); Absolute Neutrophil Count 7.7 X10^3/uL (2.0-7.7); Basophil# 0.03 X10^3/uL; Basophil% 0.3 % (0-1); Eosinophil# 0.18 X10^3/uL; Eosinophils% 1.7 % (0-5); Hematocrit 35.6 % (37-47); Hemoglobin 11.9 g/dL (12.0-15.0); Lymphocyte # 1.96 X10^3/ul (0.83-4.51); Lymphocyte % 18.5 % (19-41); Mean Corp Hgb Conc 33.4 g/dL (32-36); Mean Corpuscular Volume 92.7 fL (81-99); Mean Platelet Vol. 8.5 fl (6.2-12.0); Monocyte# 0.59 X10^3/uL; Monocyte% 5.6 % (0-10); NRBC Flagged by Analyzer 0 % (0-5); Neutrophil # 7.72 X10^3/uL (2.7-7.7); Neutrophil % 72.8 % (47-70); Platelet Count 213 K/mm3 (150-450); RBC Distribution Width CV 12.7 % (11.6-14.6); RBC Distribution Width SD 42.5 fl (35.1-43.9); Red Blood Count 3.84 M/mm3 (4.2-5.4); White Blood Count 10.6 K/mm3 (4.4-11.0)
[2023-01-04 14:41] LABS: Glucose Challenge Gest 1H 50g 130 mg/dL (70-140)
[2023-01-04 15:50] LABS: HIV - WCH Non-Reactive (Nonreactive); Syphilis Antibodies Non-reactive
[2023-01-04 16:33] LABS: Hepatitis B Surface Antigen Non-Reactive (Nonreactive); Hepatitis C Antibody Non-Reactive (Nonreactive)
== END | disposition home or self-care (01) ==
LOC: PAVLAB 13:54
PROVIDERS: Nurse Practitioner Women's Health; Referring Provider Registered Nurse; Visit Provider Registered Nurse
DX: O26.899 Other specified pregnancy related conditions, unspecified trimester (principal); Z67.91 Unspecified blood type, Rh negative; Z13.1 Encounter for screening for diabetes mellitus; Z3A.00 Weeks of gestation of pregnancy not specified
CPT/HCPCS: 36415; 82950; 85025; 86703; 86780; 86803; 86900; 86901; 87340

== ENCOUNTER → 2023-03-02 | Outpatient (CLI) | payer OTHER, SELFPAY ==
[2023-03-04 22:06] LABS: Chlamydia By Nucleic Acid AMP Negative (Negative); Gonococcus By Nucleic Acid AMP Negative (Negative)
== END | disposition home or self-care (01) ==
LOC: LABSPEC 16:42
PROVIDERS: Referring Provider Registered Nurse; Visit Provider Registered Nurse
DX: Z34.90 Encounter for supervision of normal pregnancy, unspecified, unspecified trimester (principal)
CPT/HCPCS: 87081; 87491; 87591

== ENCOUNTER 2023-03-11 09:35 | Outpatient (CLI) | payer OTHER, SELFPAY ==
[2023-03-11 09:45] VITALS: BP 119/67; PULSE 65; TEMP 36.9; O2SAT 98
[2023-03-11 09:47] VITALS: BP 119/67; PULSE 63
[2023-03-11 09:52] VITALS: BMI 32.0
--- NOTE | 2023-03-11 09:58 | US_ITS ---
STUDY: OBSTETRICAL ULTRASOUND - BIOPHYSICAL PROFILE REASON FOR EXAM: Female, 22 years old audible decelerations LMP: Unknown. PRIOR ULTRASOUND: OB ultrasound dated November 12, 2022 TECHNIQUE: Transabdominal TECHNICAL QUALITY: Adequate. FINDINGS: There is a single intrauterine fetus. The fetus is in a cephalic presentation. There is demonstrated cardiac activity with a heart rate of 144 bpm. There is a normal amniotic fluid volume. The largest amniotic fluid pocket measures 3.8 cm. The amniotic fluid index (DIDIER) is 9.8 cm. The placenta is fundal in location. There are Grade 3 placental changes. age by current US: 38 weeks, 0 days. CHARU by current US: March 25, 2023. BIOPHYSICAL PROFILE: Breathing Movements (FBM): 2 Gross Body Movements (GBM): 2 Tone (FT): 2 Amniotic Fluid Volume (AFV): 2 TOTAL SCORE: 8 / 8 US/Biophysical Prof W/O Non Stres IMPRESSION: Normal biophysical profile of 8/8. Electronically Signed: Larry Espinoza MD at 12:27 EDT ,
--- NOTE | 2023-03-11 16:05 | OB.TRI.HP_ITS ---
HPI - General HPI Narrative GREGORY RANKIN, is a 22 F who presents at 38 weeks with audile decelerations in the office via doppler, +FM without accels audible. sent to for prolonged monitoring with BPP. no ctx, no lof. no vb. Maternal Data Information CHARU Calculator Estimated Delivery Date Method Current WG Current Estimate 03/25/23 LMP (Certain) 38w 0d Other Estimates 03/20/23 Ultrasound #1 38w 5d PFSH PFSH Home Medications vitamins no.163-iron bis-gly 20 mg-folate no.10 1 mg tablet (PNV Tabs 20-1) 1 tab PO DAILY 08/18/22 [History Last Taken Unknown] Allergy/AdvReac Type Severity Reaction Status Date / Time No Known Allergies Allergy Verified 03/11/23 09:53 Social History adopted: No household members: spouse and children housing: house number of children: 1 current occupational status: unemployed pets and animals: No history of recent travel: No sexually active: Yes Smoking Status: Never smoker alcohol intake: never substance use type: does not use well-balanced diet: daily or most days caffeine: No eating out: rarely or never during the past year weight has: remained stable what type of physical activity do you participate in: none yesika/church: Scientologist seatbelt use: always do you feel safe at home: Yes additional social history: - Terrence - [facility] History 2 Elective abortions Hx Para 1 Spontaneous abortions Hx # Term Pregnancies Ectopic pregnancies Hx # Pregnancies Multiple births # of living children 1 Past Pregnancies Del. Date Name GA/Weeks Outcome Route Bth Weight Infant Gen Labor Lgth Anesthesia Del Locatn Provider FOB 07/08/20 Leeann Aly 41 live - full term 8#0oz Female none [facility] Nirmal Ocampo Delivery Date: 07/08/20 Last Updated by: Sharee Barroso IOL, pitocin Visit Details Expected Delivery Route/Plan Labor Preferences- CB/BF classes: declines labor support person: Terrence labor intervention preferences: [] pain management options preferred: natural cut cord/dad catch: cord : plans PP control planned: discussed discussed possible routes of delivery and associated risks: [] special requests: [] Plans Covid status: discussed Flu vaccine: no Tdap vaccine: no Rhogam: rh-, with rn- partner LARC form signed: yes Problem list reviewed and updated with the most current plan of care details and appropriate orders placed. Relevant counseling for the gestational age provided. Continue routine care and follow up unless otherwise noted in visit notes/problem list details OB Flowsheet Initial Weight: Not Recorded Date -?-?-?-?-?-?-?-?-?-?-?-?- EGA Weight BP Urine Prot -?-?-?-?-?-?-?-?-?-?-?-?- Glucose FHR FuHt Pres Dilation -?-?-?-?-?-?-?-?-?-?-?-?- Effaced St Visit Note 08/27/22 -?-?-?-?-?-?-?-?-?-?-?-?- 10w 0d 154 lb 8 oz 113/69 -?-?-?-?-?-?-?-?-?-?-?-?- 170 -?-?-?-?-?-?-?-?-?-?-?-?- JV- CRL measurin g 10 weeks 5 days, single viable IUP. CHARU per LMP 03/22/23 09/21/22 -?-?-?-?-?-?-?-?-?-?-?-?- 13w 4d 154 lb 8 oz 116/72 Nega tive -?-?-?-?-?-?-?-?-?-?-?-?- Negative 153 13 -?-?-?-?-?-?-?-?-?-?-?-?- LC-no vb,novampin g. awaiting self pay labs. will obtain. to schedule anatomy scan. LC-no vbroneying.denies con cerns. awaiting self pay labs. will obtain. to schedule anatomy scan. 11/17/22 -?-?-?-?-?-?-?-?-?-?-?-?- 21w 5d 159 lb 117/76 -?-?-?-?-?-?-?-?-?-?-?-?- 150 20 -?-?-?-?-?-?-?-?-?-?-?-?- LC- no vb/crampi ng. no concerns. normal anatomy scan. LC- no vb/cramping. no lucita rns. normal anatomy scan and normal nob labs. 12/15/22 -?-?-?-?-?-?-?-?-?-?-?-?- 25w 5d 165 lb 116/61 Negative -?-?-?-?-?-?-?-?-?-?-?-?- Negative 143 26 -?-?-?-?-?-?-?-?-?-?-?-?- LC- no vb/crampi ng. reviewed comfort techniques for round ligament pains. 28 week labs ordered LC- no vb/cramping. reviewed comfort techniques for round ligament pains. 28 week labs ordered. will need rhogam next visit. 01/04/23 -?-?-?-?-?-?-?-?-?-?-?-?- 28w 4d 166 lb 4 oz 104/62 Nega tive -?-?-?-?-?-?-?-?-?-?-?-?- Negative 148 28 -?-?-?-?-?-?-?-?-?-?-?-?- MH-No VB, LOF. G ood FM. 28 wk labs. Declines rhogam, states is RH neg also. 01/26/23 -?-?-?-?-?-?-?-?-?-?-?-?- 31w 5d 170 lb 102/67 Negative -?-?-?-?-?-?-?-?-?-?-?-?- Negative 137 31 Cephalic -?-?-?-?-?-?-?-?-?-?-?-?- LC- no vb/lof/ct x. good fm.having round ligament pains- stretches recommended. blood bank card obtained and verified rh negative. 02/09/23 -?-?-?-?-?-?-?-?-?-?-?-?- 33w 5d 172 lb 103/67 Trace -?-?-?-?-?-?--?-?-?-?-?-?- Negative 135 32 -?-?-?-?-?-?-?-?-?-?-?-?- LC-no vb/ctx/lof . good fm.no concerns today LC-no vb/ctx/lof. good fm.no concerns today, enc PO hydration, urine very concentrated 02/23/23 -?-?-?-?-?-?-?-?-?-?-?-?- 35w 5d 174 lb 115/69 Negative -?-?-?-?-?-?-?-?-?-?-?-?- Negative 140 35 Cephalic -?-?-?-?-?-?-?-?-?-?-?-?- LC- no vb/ctx/lo f. good fm. no concerns today. GBS next visit. declines tdap 03/02/23 -?-?-?-?-?-?-?-?-?-?-?-?- 36w 5d 174 lb 95/60 Negative -?-?-?-?-?-?-?-?-?-?-?-?- Negative 128 36 Cephalic -?-?-?-?-?-?-?-?-?-?-?-?- LC- no vb.ctx.lo f. good fm. GBS and gc/ct obtained today. SPD comfort techniques reviewed. 03/11/23 -?-?-?-?-?-?-?-?-?-?-?-?- 38w 0d 176 lb 114/70 -?-?-?-?-?-?-?-?-?-?-?-?- 130 38 Cephalic 1 -?--?-?-?-?-?-?-?-?-?-?-?- 50 -3 LC- no vb/ ctx/lof. good fm. had 2 audible decels to 110, sending to for extended monitoring with a BPP. NST FHR Rate Baby A Baseline: 125 Variability:: Moderate Accelerations:: 15 x 15 Decelerations:: None NST Reactive:: Yes FHR Category:: Category I Uterine Activity:: irregular Assessment & Plan (1) heart deceleration: COMMENT: with doppler PLAN: BPP with monitoring in WP (2) Rh negative state in antepartum period: COMMENT: rhogam 28 wk, pp and prn bleeding is also rh-. blood bank card verified. (3) Supervision of normal , antepartum: QUALIFIERS: Normal : other normal Qualified Code(s): Z34.80 - Encounter for supervision of other normal , unspecified trimester COMMENT: , CHARU 03/25/23, PC Leeann Terrence (4) : QUALIFIERS: Weeks of gestation: 13 weeks Qualified Code(s): Z3A.13 - 13 weeks gestation of COMMENT: gbs negative. discussed genetic and carrier testing and declines PLAN: Plan Patient presents for triage evaluation secondary to deceleration in the office FHT: Moderate variability reactive no decelerations category I tracing [place]: irregular Contractions Assessment and plan: Reactive NST, with 8/8 BPP,reassuring maternal and status patient discharged to home to follow-up in office. See problem list details for additional plan information. Dr. Liu aware of above, reactive NST and 8/8 BPP,and agrees stable for d/c to home. Charges/Coding Procedures Urinary/Genital 52xxx-59xxx: 45041-08 non-stress test Interp
--- NOTE | 2023-03-11 16:05 | OB.TRI.NOTE ---
HPI - General HPI Narrative GREGORY RANKIN, is a 22 F who presents at 38 weeks with audile decelerations in the office via doppler, +FM without accels audible. sent to for prolonged monitoring with BPP. no ctx, no lof. no vb. Maternal Data Information CHARU Calculator Estimated Delivery Date Method Current WG Current Estimate 03/25/23 LMP (Certain) 38w 0d Other Estimates 03/20/23 Ultrasound #1 38w 5d PFSH PFSH Home Medications vitamins no.163-iron bis-gly 20 mg-folate no.10 1 mg tablet (PNV Tabs 20-1) 1 tab PO DAILY 08/18/22 [History Last Taken Unknown] Allergy/AdvReac Type Severity Reaction Status Date / Time No Known Allergies Allergy Verified 03/11/23 09:53 Social History adopted: No household members: spouse and children housing: house number of children: 1 current occupational status: unemployed pets and animals: No history of recent travel: No sexually active: Yes Smoking Status: Never smoker alcohol intake: never substance use type: does not use well-balanced diet: daily or most days caffeine: No eating out: rarely or never during the past year weight has: remained stable what type of physical activity do you participate in: none yesika/judaism: [employer] seatbelt use: always do you feel safe at home: Yes additional social history: - Terrence - [facility] History 2 Elective abortions Hx Para 1 Spontaneous abortions Hx # Term Pregnancies Ectopic pregnancies Hx # Pregnancies Multiple births # of living children 1 Past Pregnancies Del. Date Name GA/Weeks Outcome Route Bth Weight Infant Gen Labor Lgth Anesthesia Del Locatn Provider FOB 07/08/20 Leeann Aly 41 live - full term 8#0oz Female none [facility] Nirmal Ocampo Delivery Date: 07/08/20 Last Updated by: Sharee Barroso IOL, pitocin Visit Details Expected Delivery Route/Plan Labor Preferences- CB/BF classes: declines labor support person: Terrence labor intervention preferences: [] pain management options preferred: natural cut cord/dad catch: cord : plans PP control planned: discussed discussed possible routes of delivery and associated risks: [] special requests: [] Plans Covid status: discussed Flu vaccine: no Tdap vaccine: no Rhogam: rh-, with rn- partner LARC form signed: yes Problem list reviewed and updated with the most current plan of care details and appropriate orders placed. Relevant counseling for the gestational age provided. Continue routine care and follow up unless otherwise noted in visit notes/problem list details OB Flowsheet Initial Weight: Not Recorded Date <del>?</del> EGA Weight BP Urine Prot <del>?</del> Glucose FHR FuHt Pres Dilation <del>?</del> Effaced St Visit Note 08/27/22 <del>?</del> 10w 0d 154 lb 8 oz 113/69 <del>?</del> 170 <del>?</del> JV- CRL measuring 10 weeks 5 days, single viable IUP. CHARU per LMP 03/22/23 09/21/22 <del>?</del> 13w 4d 154 lb 8 oz 116/72 Negative <del>?</del> Negative 153 13 <del>?</del> LC-no vb,cramping. awaiting self pay labs. will obtain. to schedule anatomy scan. LC-no vb,cramping.denies concerns. awaiting self pay labs. will obtain. to schedule anatomy scan. 11/17/22 <del>?</del> 21w 5d 159 lb 117/76 <del>?</del> 150 20 <del>?</del> LC- no vb/cramping. no concerns. normal anatomy scan. LC- no vb/cramping. no concerns. normal anatomy scan and normal nob labs. 12/15/22 <del>?</del> 25w 5d 165 lb 116/61 Negative <del>?</del> Negative 143 26 <del>?</del> LC- no vb/cramping. reviewed comfort techniques for round ligament pains. 28 week labs ordered LC- no vb/cramping. reviewed comfort techniques for round ligament pains. 28 week labs ordered. will need rhogam next visit. 01/04/23 <del>?</del> 28w 4d 166 lb 4 oz 104/62 Negative <del>?</del> Negative 148 28 <del>?</del> MH-No VB, LOF. Good FM. 28 wk labs. Declines rhogam, states is RH neg also. 01/26/23 <del>?</del> 31w 5d 170 lb 102/67 Negative <del>?</del> Negative 137 31 Cephalic <del>?</del> LC- no vb/lof/ctx. good fm.having round ligament pains- stretches recommended. blood bank card obtained and verified rh negative. 02/09/23 <del>?</del> 33w 5d 172 lb 103/67 Trace <del>?</del> Negative 135 32 <del>?</del> LC-no vb/ctx/lof. good fm.no concerns today LC-no vb/ctx/lof. good fm.no concerns today, enc PO hydration, urine very concentrated 02/23/23 <del>?</del> 35w 5d 174 lb 115/69 Negative <del>?</del> Negative 140 35 Cephalic <del>?</del> LC- no vb/ctx/lof. good fm. no concerns today. GBS next visit. declines tdap 03/02/23 <del>?</del> 36w 5d 174 lb 95/60 Negative <del>?</del> Negative 128 36 Cephalic <del>?</del> LC- no vb.ctx.lof. good fm. GBS and gc/ct obtained today. SPD comfort techniques reviewed. 03/11/23 <del>?</del> 38w 0d 176 lb 114/70 <del>?</del> 130 38 Cephalic 1 <del>?</del> 50 -3 LC- no vb/ctx/lof. good fm. had 2 audible decels to 110, sending to for extended monitoring with a BPP. NST FHR Rate Baby A Baseline: 125 Variability:: Moderate Accelerations:: 15 x 15 Decelerations:: None NST Reactive:: Yes FHR Category:: Category I Uterine Activity:: irregular Assessment & Plan (1) heart deceleration: COMMENT: with doppler PLAN: BPP with monitoring in (2) Rh negative state in antepartum period: COMMENT: rhogam 28 wk, pp and prn bleeding is also rh-. blood bank card verified. (3) Supervision of normal , antepartum: QUALIFIERS: Normal : other normal Qualified Code(s): Z34.80 - Encounter for supervision of other normal , unspecified trimester COMMENT: , CHARU 03/25/23, DAVID Nietoyna Terrence (4) : QUALIFIERS: Weeks of gestation: 13 weeks Qualified Code(s): Z3A.13 - 13 weeks gestation of COMMENT: gbs negative. discussed genetic and carrier testing and declines PLAN: Plan Patient presents for triage evaluation secondary to deceleration in the office FHT: Moderate variability reactive no decelerations category I tracing [place]: irregular Contractions Assessment and plan: Reactive NST, with 8/8 BPP,reassuring maternal and status patient discharged to home to follow-up in office. See problem list details for additional plan information. Dr. Liu aware of above, reactive NST and 06/22 BPP,and agrees stable for d/c to home. Charges/Coding Procedures Urinary/Genital 52xxx-59xxx: 11803-28 non-stress test Interp
== END 2023-03-11 11:36 | disposition home or self-care (01) ==
LOC: WPOUT 09:38 → WP 09:39
PROVIDERS: Referring Provider Obstetrics & Gynecology; Visit Provider Obstetrics & Gynecology
DX: O36.8330 Maternal care for abnormalities of the fetal heart rate or rhythm, third trimester, not applicable or unspecified (principal); O26.893 Other specified pregnancy related conditions, third trimester; Z67.90 Unspecified blood type, Rh positive; Z3A.38 38 weeks gestation of pregnancy
CPT/HCPCS: 59025; 59050; 76819; 99221; G0378

== ENCOUNTER 2023-03-15 03:12 | Inpatient (IN) | payer SELFPAY, OTHER ==
[2023-03-15] VITALS (42 sets, daily range): BP systolic 101–127; BP diastolic 48–81; PULSE 61–99; RESP 16; TEMP 36.7–37.2; O2SAT 96–100; BMI 30.1
[2023-03-15 03:46] LABS: Absolute Lymphocyte Count 2.13 X10^3/uL (0.83-4.51); Absolute Neutrophil Count 7.5 X10^3/uL (2.0-7.7); Basophil# 0.03 X10^3/uL; Basophil% 0.3 % (0-1); Eosinophils% 0.9 % (0-5); Hematocrit 40.5 % (37-47); Hemoglobin 13.8 g/dL (12.0-15.0); Lymphocyte # 2.13 X10^3/ul (0.83-4.51); Lymphocyte % 20.1 % (19-41); Mean Corp Hgb Conc 34.1 g/dL (32-36); Mean Corpuscular Hgb 31.6 pg (27.0-32.0); Mean Corpuscular Volume 92.7 fL (81-99); Mean Platelet Vol. 9.7 fl (6.2-12.0); Monocyte# 0.78 X10^3/uL; Monocyte% 7.4 % (0-10); NRBC Flagged by Analyzer 0 % (0-5); Neutrophil # 7.51 X10^3/uL (2.7-7.7); Platelet Count 168 K/mm3 (150-450); RBC Distribution Width CV 13.4 % (11.6-14.6); RBC Distribution Width SD 45.7 fl (35.1-43.9); Red Blood Count 4.37 M/mm3 (4.2-5.4); White Blood Count 10.6 K/mm3 (4.4-11.0)
--- NOTE | 2023-03-15 05:08 | HP.PCM.OB_ITS ---
HPI - General General Date of Admission: 03/15/23 HPI Narrative GREGORY RANKIN, is a 22 y/o @ 38 weeks 4 days who presents to L&D with painful contractions q 2 minutes and found to be 6 cm dilated Maternal Data Information CHARU Calculator Estimated Delivery Date Method Current WG Current Estimate 03/25/23 LMP (Certain) 38w 4d Other Estimates 03/20/23 Ultrasound #1 39w 2d PFSH PFSH Home Medications vitamins no.163-iron bis-gly 20 mg-folate no.10 1 mg tablet (PNV Tabs 20-1) 1 tab PO DAILY 08/18/22 [History Last Taken 03/13/23] Allergy/AdvReac Type Severity Reaction Status Date / Time No Known Allergies Allergy Verified 03/15/23 03:51 Social History adopted: No household members: spouse and children housing: house number of children: 1 current occupational status: unemployed pets and animals: No history of recent travel: No sexually active: Yes Smoking Status: Never smoker alcohol intake: never substance use type: does not use well-balanced diet: daily or most days caffeine: No eating out: rarely or never during the past year weight has: remained stable what type of physical activity do you participate in: none yesika/judaism: Jewish seatbelt use: always do you feel safe at home: Yes additional social history: - [facility] History 2 Elective abortions Hx Para 1 Spontaneous abortions Hx # Term Pregnancies Ectopic pregnancies Hx # Pregnancies Multiple births # of living children 1 Past Pregnancies Del. Date Name GA/Weeks Outcome Route Bth Weight Infant Gen Labor Lgth Anesthesia Del Locatn Provider FOB 07/08/20 Leeann Aly 41 live - full term 8#0oz Female none [facility] Nirmal Ocampo Delivery Date: 07/08/20 Last Updated by: Sharee Barroso IOL, pitocin Visit Details Expected Delivery Route/Plan Labor Preferences- CB/BF classes: declines labor support person: Terrence labor intervention preferences: [] pain management options preferred: natural cut cord/dad catch: cord : plans PP control planned: discussed discussed possible routes of delivery and associated risks: [] special requests: [] Plans Covid status: discussed Flu vaccine: no Tdap vaccine: no Rhogam: rh-, with rn- partner LARC form signed: yes Problem list reviewed and updated with the most current plan of care details and appropriate orders placed. Relevant counseling for the gestational age provided. Continue routine care and follow up unless otherwise noted in visit notes/problem list details OB Flowsheet Initial Weight: Not Recorded Date -?-?-?-?-?-?-?-?-?-?-?-?- EGA Weight BP Urine Prot -?-?-?-?-?-?-?-?-?-?-?-?- Glucose FHR FuHt Pres Dilation -?-?-?-?-?-?-?-?-?-?-?-?- Effaced St Visit Note 08/27/22 -?-?-?-?-?-?-?-?-?-?-?-?- 10w 0d 154 lb 8 oz 113/69 -?-?-?-?-?-?-?-?-?-?-?-?- 170 -?-?-?-?-?-?-?-?-?-?-?-?- JV- CRL measurin g 10 weeks 5 days, single viable IUP. CHARU per LMP 03/22/23 09/21/22 -?-?-?-?-?-?-?-?-?-?-?-?- 13w 4d 154 lb 8 oz 116/72 Nega tive -?-?-?-?-?-?-?-?-?-?-?-?- Negative 153 13 -?-?-?-?-?-?-?-?-?-?-?-?- LC-no vb,crampin g. awaiting self pay labs. will obtain. to schedule anatomy scan. LC-no vbnovamping.denies con cerns. awaiting self pay labs. will obtain. to schedule anatomy scan. 11/17/22 -?-?-?-?-?-?-?-?-?-?-?-?- 21w 5d 159 lb 117/76 -?-?-?-?-?-?-?-?-?-?-?-?- 150 20 -?-?-?-?-?-?-?-?-?-?-?-?- LC- no vb/crampi ng. no concerns. normal anatomy scan. LC- no vb/cramping. no lucita rns. normal anatomy scan and normal nob labs. 12/15/22 -?-?-?-?-?-?-?-?-?-?-?-?- 25w 5d 165 lb 116/61 Negative -?-?-?-?-?-?-?-?-?-?-?-?- Negative 143 26 -?-?-?-?-?-?-?-?-?-?-?-?- LC- no vb/crampi ng. reviewed comfort techniques for round ligament pains. 28 week labs ordered LC- no vb/cramping. reviewed comfort techniques for round ligament pains. 28 week labs ordered. will need rhogam next visit. 01/04/23 -?-?-?-?-?-?-?-?-?-?-?-?- 28w 4d 166 lb 4 oz 104/62 Nega tive -?-?-?-?-?-?-?-?-?-?-?-?- Negative 148 28 -?-?-?-?-?-?-?-?-?-?-?-?- MH-No VB, LOF. G ood FM. 28 wk labs. Declines rhogam, states is RH neg also. 01/26/23 -?-?-?-?-?-?-?-?-?-?-?-?- 31w 5d 170 lb 102/67 Negative -?-?-?-?-?-?-?-?-?-?-?-?- Negative 137 31 Cephalic -?-?-?-?-?-?-?-?-?-?-?-?- LC- no vb/lof/ct x. good fm.having round ligament pains- stretches recommended. blood bank card obtained and verified rh negative. 02/09/23 -?-?-?-?-?-?-?-?-?-?-?-?- 33w 5d 172 lb 103/67 Trace -?-?-?-?-?-?-?-?-?-?-?-?- Negative 135 32 -?-?-?-?-?-?-?-?-?-?-?-?- LC-no vb/ctx/lof . good fm.no concerns today LC-no vb/ctx/lof. good fm.no concerns today, enc PO hydration, urine very concentrated 02/23/23 -?-?-?-?-?-?-?-?-?-?-?-?- 35w 5d 174 lb 115/69 Negative -?-?-?-?-?-?-?-?-?-?-?-?- Negative 140 35 Cephalic -?-?-?-?-?-?-?-?-?-?-?-?- LC- no vb/ctx/lo f. good fm. no concerns today. GBS next visit. declines tdap 03/02/23 -?-?-?-?-?-?-?-?-?-?-?-?- 36w 5d 174 lb 95/60 Negative -?-?-?-?-?-?-?-?-?-?-?-?- Negative 128 36 Cephalic -?-?-?-?-?-?-?-?-?-?-?-?- LC- no vb.ctx.lo f. good fm. GBS and gc/ct obtained today. SPD comfort techniques reviewed. 03/11/23 -?-?-?-?-?-?-?-?-?-?-?-?- 38w 0d 176 lb 114/70 -?-?-?-?-?-?-?-?-?-?-?-?- 130 38 Cephalic 1 -?-?-?-?-?-?-?-?-?-?-?-?- 50 -3 LC- no vb/ ctx/lof. good fm. had 2 audible decels to 110, sending to for extended monitoring with a BPP. ROS Constitutional Constitutional: Denies change in weight, fatigue, fever(s), headache(s), poor appetite or weakness Eyes Eyes: Denies blurry vision, change in vision, seeing flashes or spots in vision ENT HEENT: Denies dizziness, headache(s), loss taste/smell or sore throat Cardiovascular Cardiovascular: Denies chest pain, dizziness, dyspnea, irregular heart rhythm, leg edema, palpitations, rapid heart rate or vomiting Respiratory/Chest Respiratory/Chest: Denies chest tightness, cough, dyspnea or breast pain Gastrointestinal Gastrointestinal: Denies abdominal pain, anorexia, constipation, cramping, diarrhea, hemorrhoids, vomiting or weight changes Genitourinary Genitourinary: Denies dysuria, flank pain, genital lesions, genital pain, urinary frequency or urinary urgency Musculoskeletal Musculoskeletal: Denies back pain, difficulty walking, joint pain, limited range of motion, muscle cramps or numbness Integumentary Integumentary: Denies lesions or unusual bruising Neurologic Neurologic: Denies abnormal movements, abnormal speech, dizziness, numbness, seizure-like activity or syncope Psychiatric Psychiatric: Denies anxiety, behavioral changes, change in appetite, change in libido, cognitive impairment, confusion, depression, difficulty concentrating, hallucinations or suicidal thoughts Endocrine Endocrinology: Denies excessive sweating, polydipsia or polyuria Hematologic/Lymphatic Hematologic/Lymphatic: Denies easy bleeding, easy bruising or lymphadenopathy Allergic/Immunologic Allergic/Immunologic: Denies itchy eyes, lip swelling, seasonal rhinorrhea, rhinitis, throat swelling, tongue swelling, eczemia, wheezing or asthma Vital Signs Vital Signs Vital Signs: 03/15/23 03:08 03/15/23 03:08 03/15/23 03:08 Temperature Temperature Source Temporal Pulse Rate 63 Blood Pressure 123/57 H BP Systolic 123 BP Diastolic 57 Pulse Ox 03/15/23 03:08 03/15/23 03:08 03/15/23 04:30 Temperature 98.2 F Temperature Source Pulse Rate 69 Blood Pressure BP Systolic BP Diastolic Pulse Ox 98 03/15/23 04:50 03/15/23 04:50 03/15/23 04:49 Temperature Temperature Source Pulse Rate 75 Blood Pressure 127/77 H BP Systolic 127 BP Diastolic 77 Pulse Ox 96 03/15/23 04:50 03/15/23 04:50 Temperature 99.0 F Temperature Source Temporal Pulse Rate Blood Pressure BP Systolic BP Diastolic Pulse Ox Weight Weight: 170 lb 3.2 oz Body Mass Index (BMI) 30.1 Physical Exam Const alert, oriented x3, no apparent distress and healthy appearing General Appearance: cooperative; Negative for anxious HEENT normocephalic Face and Sinus: normal facial exam Eyes EOMs intact bilaterally and no scleral icterus General Eye: normal appearance of both eyes Neck full ROM and supple Lymph Lymphatic: no lymphadenopathy noted Chest Chest: abnormal inspection of the chest Resp normal respiratory effort Effort and Inspection: able to speak in complete sentences Cardio regular rate GI soft to palpation and non-tender Inspection: gravid Palpation: soft; Negative for tender external exam normal Amniotic Fluid: ROM+plus Back/Spine no CVA tenderness Extremity normal to inspection, full ROM and no clubbing, cyanosis or edema General Extremity: Negative for calf tenderness or edema Skin Lesions: no lesions Rashes: no rashes Psych mental status grossly normal Labs Labs Labs: Blood Type O NEGATIVE Antibody Screen NEGATIVE Hct 40.5 % (37-47) Hgb 13.8 g/dL (12.0-15.0) Obstetrics US Syphilis Total Ab Non-reactive Rubella IgG Antibody Non-Reactive (Nonreactive) Hep Bs Antigen Non-Reactive (Nonreactive) Chlamydia DNA (MAMIE) Negative (Negative) Neisseria gonorrhoeae DNA (MAMIE) Negative (Negative) HIV 1&2 Antibody Non-Reactive (Nonreactive) Glucose 1 Hr 50 gm 130 mg/dL (70-140) Rhogam given: No Miscellaneous Test Assessment & Plan (1) heart deceleration: COMMENT: with doppler (2) Rh negative state in antepartum period: COMMENT: rhogam 28 wk, pp and prn bleeding is also rh-. blood bank card verified. (3) Supervision of normal , antepartum: QUALIFIERS: Normal : other normal Qualified Code(s): Z34.80 - Encounter for supervision of other normal , unspecified trimester COMMENT: , CHARU 03/25/23, DAVID Leeann Terrence (4) : QUALIFIERS: Weeks of gestation: 13 weeks Qualified Code(s): Z3A.13 - 13 weeks gestation of COMMENT: gbs negative. discussed genetic and carrier testing and declines PLAN: Plan Patient presents IAL, plan expectant management for , pitocin/AROM PRN if needed. Pain management: none . GBS negative . Management of any complications: none I have reviewed the [facility] and made any clinically relevant updates.
--- NOTE | 2023-03-15 05:11 | DCINST_ITS ---
Discharge Instructions Diet Discharge Diet: No restrictions Activity Discharge Activity: Return to Normal Activity, May Not Drive (while taking narcotic pain medications.) and May Shower May resume sexual activity in: 4-6 weeks Dressing / Incision Call your doctor if your incision/area has: Continuous Slow Oozing, Sudden Increased Bleeding, Increased Pain/ Swelling, Increased Redness and Foul Smelling Discharge Follow Up Care Please Follow Up With: Latasha Becker, DO When: Call [phone] to make an appointment with your doctor in 6 weeks. If you had elevated blood pressure or 4th degree laceration, you will need to be seen in 2 weeks. Test Results: Test results from this visit will be discussed in further detail at your follow- up appointment, if applicable. Discharge Plan Admission Admit Date/Time: 03/15/23 03:12 Attending Provider: Latasha Becker Primary Care Provider: Care Physician,Jacy Primary Discharge Orders/Prescriptions Prescriptions: No Action PNV Tabs 20-1 20 mg iron- 1 mg tablet 1 tab PO DAILY Referrals / Follow Up: Care Physician,No Primary [Primary Care Provider] -
--- NOTE | 2023-03-15 05:11 | EX.PCM.OBRPT ---
Assessment & Plan (1) heart deceleration: COMMENT: with doppler (2) Rh negative state in antepartum period: COMMENT: rhogam 28 wk, pp and prn bleeding is also rh-. blood bank card verified. (3) Supervision of normal , antepartum: QUALIFIERS: Normal : other normal Qualified Code(s): Z34.80 - Encounter for supervision of other normal , unspecified trimester COMMENT: , CHARU 03/25/23, PC Leeann Terrence (4) : QUALIFIERS: Weeks of gestation: 13 weeks Qualified Code(s): Z3A.13 - 13 weeks gestation of COMMENT: gbs negative. discussed genetic and carrier testing and declines Maternal Data Information CHARU Calculator Estimated Delivery Date Method Current WG Current Estimate 03/25/23 LMP (Certain) 38w 4d Other Estimates 03/20/23 Ultrasound #1 39w 2d Final CHARU: 03/25/23 Gestational age: 38 weeks 4 days Vaginal Delivery Maternal Presentation Maternal Presentation: Active Labor Type of Induction: Amniotomy Operative Information Date of Procedure: 03/15/23 Type of Anesthesia: None Drain: Mckenzie to straight drain Estimated Blood Loss: 600cc Findings Description of Procedure: Patient began pushing and delivered the head in the VIRAJ presentation. The head was delivered atraumatically. The anterior and posterior shoulders delivered without complication followed by the rest of the infant and the was placed on the maternal abdomen. Delayed cord clamping was employed for approximately 60 seconds. Cord was clamped and cut and gentle traction was applied to the cord and the placenta delivered spontaneously immediately following it was noted to be intact with three-vessel cord. The perineum and vagina were inspected and noted to have a 1st degree perineal laceration, repaired with a 3-0 vicryl rapide. She had a large gush of blood that was eventually treated with uterine massage, methergine, hemabate, and the bladder was drained of 1000cc of urine. EBL was 600cc. Patient and tolerated delivery well. Presentation: Vertex and VIRAJ Amniotic Membrane Rupture Type: Artificial Amniotic Fluid Description: Clear Placental Delivery Description: Spontaneous Placenta Disposition: [facility] Cord Vessel Description: 3 Vessels Cord Entanglement: None Infant A Gender: Female (1 minute): 8 (5 minute): 9 Delayed Cord Clamping: Yes Post Vaginal Delivery Medications Given After Delivery: IV Pitocin, IM Pitocin, IM Methergin and IM Hemabate Episiotomy Description: None Laceration: 1st degree Complication Complications: None Multi Select Codes Urinary/Genital Urinary/Genital CPT Codes: 28858 Vaginal Delivery [facility]
[2023-03-15] MEDS: Oxytocin 10 UNITS/ML Vial IM (05:45)
[2023-03-15] MEDS: Oxytocin 15 Units/NS 250ml 15 UNITS/250 ML IV.SOLN 83 UNITS IV (05:46)
[2023-03-15] MEDS: Methylergonovine 0.2 MG/ML Ampul IM (05:48)
[2023-03-15] MEDS: Lidocaine 1% (20 ml mdv) 20 ML Vial INFILT (05:49)
[2023-03-15] MEDS: Morphine 2 MG/ML Syringe IV (05:54)
[2023-03-15 05:57] LABS: Syphilis Antibodies Non-reactive
[2023-03-15] MEDS: 0.9% Saline Lock 10 ML Syringe IV (08:49)
[2023-03-16 03:30] VITALS: BP 93/46; PULSE 64; RESP 16; TEMP 36.8; O2SAT 95
[2023-03-16 06:13] VITALS: BP 111/54
--- NOTE | 2023-03-16 07:38 | PCM.PN.OB ---
Subjective Subjective Patient doing well without complaints. Tolerating PO. Ambulating and voiding without difficulty. Feeding well. Denies chest pain, shortness of breath, calf pain/swelling, fevers, chills, lightheadedness. Objective Data Objective Data Vital Signs: Vital Signs Temp Pulse Resp BP Pulse Ox O2 Del Method 98.2 F 64 16 111/54 L 95 Room Air 03/16/23 03:30 03/16/23 03:30 03/16/23 03:30 03/16/23 06:13 03/16/23 03:30 03/16/23 03:30 Oxygen Delivery Method Room Air Weight: 170 lb 3.2 oz Body Mass Index (BMI) 30.1 Intake & Output: Intake and Output for Last 24 Hours 03/14/23 03/15/23 03/16/23 23:59 23:59 23:59 Intake Total 250 / 250 Output Total 1100 / 1100 Balance -850 / -850 Lab / Micro Data Attestation: I reviewed the patient's lab results. Result Diagrams: 03/15/23 03:30 ROS Constitutional Constitutional: Reports systems reviewed and no addt'l complaints, except as documented; Denies anorexia or headache(s) Cardiovascular Cardiovascular: Reports systems reviewed and no addt'l complaints, except as documented; Denies dizziness, dyspnea, nausea or tachypnea Respiratory/Chest Respiratory/Chest: Reports systems reviewed and no addt'l complaints, except as documented; Denies cough, dyspnea, shortness of breath at rest or tachypnea Gastrointestinal Gastrointestinal: Reports systems reviewed and no addt'l complaints, except as documented; Denies abdominal pain, constipation or nausea Genitourinary Genitourinary: Reports systems reviewed and no addt'l complaints, except as documented; Denies burning urination, difficulty urinating, dysuria, urinary frequency or urinary incontinence Musculoskeletal Musculoskeletal: Reports systems reviewed and no addt'l complaints, except as documented Integumentary Integumentary: Reports systems reviewed and no addt'l complaints, except as documented Neurologic Neurologic: Reports systems reviewed and no addt'l complaints, except as documented; Denies abnormal speech, dizziness or headache(s) Psychiatric Psychiatric: Reports systems reviewed and no addt'l complaints, except as documented Endocrine Endocrinology: Reports systems reviewed and no addt'l complaints, except as documented Hematologic/Lymphatic Hematologic/Lymphatic: Reports systems reviewed and no addt'l complaints, except as documented Physical Exam Const alert, oriented x3 and no apparent distress Neck full ROM Resp normal respiratory effort, normal air movement and no retractions Effort and Inspection: able to speak in complete sentences and symmetric chest movement GI soft to palpation Bladder / Kidney Exam: bladder normal to palpation Uterus Palpation: uterus fundus firm (U1) Extremity normal to inspection and full ROM Psych mental status grossly normal, thought process normal and cooperative Assessment & Plan (1) Rh negative state in antepartum period: COMMENT: rhogam 28 wk, pp and prn bleeding is also rh-. blood bank card verified. (2) Supervision of normal , antepartum: QUALIFIERS: Normal : other normal Qualified Code(s): Z34.80 - Encounter for supervision of other normal , unspecified trimester COMMENT: , CHARU 03/25/23, PC Leeann Terrence (3) : QUALIFIERS: Weeks of gestation: 13 weeks Qualified Code(s): Z3A.13 - 13 weeks gestation of COMMENT: gbs negative. discussed genetic and carrier testing and declines PLAN: s/p PPD # 1 1. routine post delivery care 2. breast feeding- support given 3. rh neg, O neg 4. rubella immune Charges/Coding Multi Select Codes Urinary/Genital Urinary/Genital CPT Codes: No Charge
--- NOTE | 2023-03-16 07:40 | DCINST_ITS ---
Discharge Instructions Diet Discharge Diet: No restrictions Activity May resume sexual activity in: 4-6 weeks Dressing / Incision Call your doctor if your incision/area has: Continuous Slow Oozing, Sudden Increased Bleeding, Increased Pain/ Swelling, Increased Redness and Foul Smelling Discharge Follow Up Care Please Follow Up With: Latasha Becker DO Test Results: Test results from this visit will be discussed in further detail at your follow- up appointment, if applicable. Discharge Plan Admission Admit Date/Time: 03/15/23 03:12 Attending Provider: Latasha Becker Primary Care Provider: Care Physician,Jacy Primary Discharge Orders/Prescriptions Prescriptions: No Action PNV Tabs 20-1 20 mg iron- 1 mg tablet 1 tab PO DAILY Referrals / Follow Up: Care Physician,No Primary [Primary Care Provider] - Disposition Disposition (needs filled in before D/C Order can be placed): Home, Self Care
[2023-03-16] MEDS: Naproxen 500 MG Tablet PO (09:02)
[2023-03-16 09:10] VITALS: BP 102/53; PULSE 83; RESP 16; TEMP 36.7; O2SAT 97
== END 2023-03-16 10:05 | disposition home or self-care (01) | DRG 807 ==
LOC: WPOUT 03:15 → WP 03:15
PROVIDERS: Admitting Provider Obstetrics & Gynecology; Referring Provider Obstetrics & Gynecology; Visit Provider Obstetrics & Gynecology
DX: O76 Abnormality in fetal heart rate and rhythm complicating labor and delivery (principal); Z37.0 Single live birth; O26.893 Other specified pregnancy related conditions, third trimester; O70.0 First degree perineal laceration during delivery; Z3A.38 38 weeks gestation of pregnancy; Z67.41 Type O blood, Rh negative
CPT/HCPCS: 59025; 59050; 85025; 86780; 86850; 86900; 86901; 99221; A4216; G0378

== ENCOUNTER → 2023-04-29 | Outpatient (CLI) | payer OTHER, SELFPAY ==
[2023-05-04 17:56] LABS: HPV Reflexed? NOT INDICATED
== END | disposition home or self-care (01) ==
PROVIDERS: Visit Provider Registered Nurse
DX: Z12.4 Encounter for screening for malignant neoplasm of cervix (principal)
CPT/HCPCS: 88175; G0145

== ENCOUNTER 2025-07-19 11:14 | Day surgery (SDC) | payer SELFPAY, OTHER ==
[2025-07-19] VITALS (9 sets, daily range): BP systolic 92–109; BP diastolic 50–70; PULSE 58–73; RESP 16; TEMP 36.1–37.1; O2SAT 97–100; BMI 27.4
[2025-07-19] MEDS: Lactated Ringers 1,000 ML 15 ML IV (11:53)
--- NOTE | 2025-07-19 12:13 | PCM.PRE.AN2 ---
ASA Classification* ASA Classification ASA Classification: 1 Assessment & Plan Anesthesia* Anesthesia Assessment Anesthesia Assessment: Discussed sedation and/or anesthesia options, risks, benefits, and alternatives with patient/parents/legal guardian/POA. Questions invited. The patient/parents/legal guardian/POA seems to understand and agrees to proceed with anesthesia plan. Reviewed the physical assessment, medical history, allergy history and patient home medications list prior to surgery/procedure/anesthetic and documented any changes. Performed airway and anesthesia risk assessments. Anesthesia Type Anesthesia Type: MAC History Source History Obtained from:: Patient and Chart Anesthesia Focused Assessment* Temperature: 98.4 F Pulse Rate: 61 Blood Pressure: 109/57 Respiratory Rate: 16 Pulse Ox: 100 Oxygen Delivery Method: Room Air Airway Assessment Mouth opens: >3 cm Mallampati Score: I Teeth Condition: Intact Neck Range of motion (ROM): Full ROM Labs Anesthesia Preop lab: CBC WBC 10.6 K/mm3 (4.4-11.0) 03/15/23 03:30 03/15/23 RBC 4.37 M/mm3 (4.2-5.4) 03/15/23 03:30 03/15/23 Hgb 13.8 g/dL (12.0-15.0) 03/15/23 03:30 03/15/23 Hct 40.5 % (37-47) 03/15/23 03:30 03/15/23 Plt Count 168 K/mm3 (150-450) 03/15/23 03:30 03/15/23 CHEMISTRY TSH 0.97 uIU/mL (0.358-3.74) 12/15/19 15:02 12/15/19 COAG Pre-Assessment Diagnosis/Proposed Procedure Planned Operative Procedure(s): SUCTION D&C Anesthesia History 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 When Was Last Pacemaker Check QUESTION #4 FULL TEXT: You/Your Family Experience fever (hyperthermia) with Anesthesia Last Oral Intake Last Oral intake: Last Oral Intake NPO since 06:30 07/19/25 11:46 Meds taken in AM with sips of water? Meds patient instructed to take am of surgery Any additional information?: Yes NPO since: 06:30 (Patient has sports drink at 6:30 AM.) Meds taken in AM with sips of water?: No PONV PONV - pastry cook apprentice: PONV - pastry cook apprentice Female Yes 07/18/25 15:30 HX of Motion Sickness No 07/18/25 15:30 HX of N/V After Surgery No 07/18/25 15:30 Non-Smoker Yes 07/18/25 15:30 Duration of Surgery greater No 07/18/25 15:30 than 60 minutes Number of Risk Factors 2 07/18/25 15:30 PONV Score Moderate Risk 07/18/25 15:30 Height & Weight Height & Weight: Anesthesia: Height & Weight Height 5 ft 3 in 07/19/25 11:46 Weight: 70.307 kg 07/19/25 11:46 Body Mass Index (BMI) 27.4 07/19/25 11:46 Respiratory Assessment Respiratory Assessment - pastry cook apprentice: Respiratory Tract Infection Hx - pastry cook apprentice Hx Respiratory Tract Infection No 07/18/25 15:30 STOP Sleep Apnea STOP Sleep Apnea - pastry cook apprentice: STOP Sleep Apnea - pastry cook apprentice Hx Hypertension No 07/18/25 15:30 Hx Sleep Apnea No 07/18/25 15:30 CPAP BIPAP Do you snore loudly (louder No 07/18/25 15:30 than talking or can be heard Do you often feel tired/ No 07/18/25 15:30 fatigued/ sleepy during daytime? Has anyone observed you stop No 07/18/25 15:30 breathing during sleep? STOP Results Negative 07/18/25 15:30 QUESTION #5 FULL TEXT : Do you snore loudly (louder than talking or can be heard through closed doors)? 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 Specify any problems Hx of Preganancy in last 3 Yes 07/18/25 15:30 Months Nurse Filling Out Transfusion VCHRISTIN 07/18/25 15:30 & Questions: Date: 07/18/25 07/18/25 15:30 Time: 15:31 07/18/25 15:30 Patient unable to answer at this time (ie. confused, unrespo /Reproduction History /Reproductive History - pastry cook apprentice: /Reproductive Hx- pastry cook apprentice Hx Now Yes 07/18/25 15:30 Gestational Age (in weeks): EDC: Hx Hx Para Hx Section SAB No 07/18/25 15:30 Active Medications Active Medications: Current Medications Generic Name Dose Route Start Last Admin Trade Name Freq PRN Reason Stop Dose Admin Lactated Ringer's 1,000 mls @ 15 mls/hr 07/19/25 12:00 07/19/25 11:53 IV 15 mls/hr .Q48H VERNON Administration Cefazolin Sodium 2 gm/ Sodium 110 mls @ 200 mls/hr 07/20/25 07:00 Chloride IV 07/20/25 07:32 INTRAOP ONE PFSH Medical History Non-smoker heart deceleration Rh negative state in antepartum period Supervision of normal , antepartum Home Medications ?Medication ?Instructions ?Recorded ?Last Taken ?Type vitamins no.163-iron 1 tab PO DAILY 07/06/25 Unknown History bis-gly 20 mg-folate no.10 1 mg tablet (PNV Tabs 20-1) pyridoxine (vitamin B6) 100 mg 100 mg PO QDAY 07/06/25 Unknown History tablet cholecalciferol (vitamin D3) 25 25 mcg PO DAILY 07/18/25 Unknown History mcg (1,000 unit) capsule (Vitamin D3) Allergy/AdvReac Type Severity Reaction Status Date / Time No Known Allergies Allergy Verified 07/19/25 11:45 no surgical history Social History adopted: No household members: spouse and children housing: house number of children: 2 current occupational status: unemployed current occupation: [employer] current occupational exposures/hazards: No pets and animals: No history of recent travel: No sexually active: Yes Smoking Status: Never smoker alcohol intake: never substance use type: does not use well-balanced diet: daily or most days caffeine: No eating out: rarely or never during the past year weight has: remained stable what type of physical activity do you participate in: walking and other details: core exercises frequency: daily duration: 45-60 minutes/day yesika/restorationism: Judaism seatbelt use: always do you feel safe at home: Yes 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
--- NOTE | 2025-07-19 12:35 | PCM.HP.BLA ---
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 Is patient in pain?: No Allergies No Known Allergies Allergy (Verified 07/18/25 08:31) Medications ?Medication ?Instructions ?Recorded ?Confirmed ?Type vitamins no.163-iron tab PO DAILY 07/06/25 History bis-gly 20 mg-folate no.10 1 mg tablet (PNV Tabs 20-1) pyridoxine (vitamin B6) 100 mg 100 mg PO QDAY 07/06/25 History tablet Last Menstrual Period: 05/17/25 Zika: Zika virus screening: Negative [facility] Medical History heart deceleration Rh negative state in antepartum period Supervision of normal , antepartum Social History adopted: No household members: spouse and children housing: house number of children: 2 current occupational status: unemployed current occupation: [employer] current occupational exposures/hazards: No pets and animals: No history of recent travel: No sexually active: Yes Smoking Status: Never smoker alcohol intake: never substance use type: does not use well-balanced diet: daily or most days caffeine: No eating out: rarely or never during the past year weight has: remained stable what type of physical activity do you participate in: walking and other details: core exercises frequency: daily duration: 45-60 minutes/day yesika/druze: Voodoo seatbelt use: always do you feel safe at home: Yes additional social history: - Terrence - Essence santiago History 3 Elective abortions Hx Para 2 Spontaneous abortions Hx # Term Pregnancies Ectopic pregnancies Hx # Pregnancies Multiple births # of living children 2 Past Pregnancies Del. Date Name GA/Weeks Outcome Route Bth Weight Gen Labor Lgth Anesthesia Del Locatn Provider FOB 07/08/20 Leeann Aly 41 live - full term 8#0oz Female none [facility] Nirmal Ocampo 03/15/23 [facility] [place] 38 live - full term 7#2oz Female none [facility] Miah Rodriguez Delivery Date: 07/08/20 Last Updated by: Sharee Barroso IOL, pitocin HPI *EST* NOB LMP 05/17, CHARU 02/21 Details: GREGORY RANKIN is a 25 year old who presents for New OB visit. No heart rate noted on US, and no color flow to fetus- measuring 8.2 weeks. She is here for a suction D&C. OB Visit CHARU Calculator Estimated Delivery Date Method Current WG Current Estimate 02/21/26 LMP (Certain) 8w 6d Comments: HIV: Urine Culture: Sequential Screen: NIPT Screen: Estimated Due Date: 02/21/26 Expected Delivery Route/Plan Labor Preferences- CB/BF classes: [] labor support person: [] labor intervention preferences: [] pain management options preferred: [] cut cord/dad catch: [] : [] PP control planned: [] discussed possible routes of delivery and associated risks: [] special requests: [] Specific Issue/Plans Covid status: [] Flu vaccine: [] Tdap vaccine: [] Rhogam: [] LARC form signed: [] Problem list reviewed and updated with the most current plan of care details and appropriate orders placed. Relevant counseling for the gestational age provided. Continue routine care and follow up unless otherwise noted in visit notes/problem list details Initial Weight: 158 lb Date <del>?</del> EGA Weight BP Urine Prot <del>?</del> Glucose FHR FuHt Pres Dilation <del>?</del> Effaced St Visit Note 07/18/25<del>?</del> 8w 6d 158 lb 4 oz(+4 oz) 108/68 <del>?</del> <del>?</del> KW- No FHT noted on US. JV in to rescan. D&C discussed. Menstrual History Last Menstrual Period: 05/17/25 Reported LMP: definite Normal amount/duration: Yes Frequency in days: 25-28 On hormonal BC at conception: No hCG+: 06/18/25 Antepartum Record Genetic Screening: Congenital Heart Defect: Other, Neural Tube Defect: Other, Hemoglobinopathy Or Carrier: Other, Cystic Fibrosis: Other, Chromosome Abnormality: Other, Leonardo-Sachs: Other, Hemophilia: Other, Intellectual Disability/Autism: Other, Recurrent Loss/Stillbirth: Other, Other Structural Defect: Other, Other Genetic Disease: Other and Maternal Metabolic Disorder: Other Infection History: Live with someone with TB or Exposed to TB: No, Patient or Partner has history of Genital Herpes: No, Rash or Viral illness since last mentrual period: No, Prior GBS-Infected child: No, History of STD: No, HIV Infection: No, History of Hepatitis: No, Recent travel outside of [place]: No, Concern for hepatitis exposure: No, Varicella immune: Yes (immune- virus) and Covid Vaccinated: No Medical History Medical History: Positive: D (Rh) Sensitized (O-) and Negative: Diabetes, Hypertension, Heart disease, Auto-immune disorder, Kidney disease/UTI, Neurologic/epilepsy, Psychiatric, Depression/ depression, Hepatitis/liver disease, Varicosities/phlebitis, Thyroid dysfunction, Trauma/domestic violence, History of blood transfusions, Pulmonary (e.g.,TB,Asthma), Seasonal allergies, Drug/latex allergies/reactions, Breast, Montessori Paraprofessional surgery, Operations/hospitalizations, Anesthetic complications, History of abnormal pap, Uterine anomaly/mignon, Infertility, Anti-retroviral treatment, Relevant family history and Other ACOG First Trimester First Trimester: Desire for , Alcohol, Tobacco Cessation, Illicit/Recreational Drug/Substance Use, Intimate Partner Violence, Barriers to care, Unstable Housing, Communication Barriers, Environmental/Work Hazards, Anticipated Course of Care, Nurtrition and weight gain, Toxoplasmosis Precations, Use of Any medications, Sexual activity, Exercise, Dental Care, Sauna/Hot tub use, Seat Belt use, Childbirth classes/Hospital facilities, Travel, Indications for Ultrasound and Screening for Aneuploidy Second Trimester Second Trimester: Signs and Symptoms of Labor, Selecting a care provider, Reproductive Life Planning & Contreception, Care Planning and Intimate Partner Violence; Discussed Tobacco Cessation and Discussed Depression/Anxiety Third Trimester Third Trimester: Pain Management Plans, Labor support person(s), Immediate Larc, Circumcision preference, Movement Monitoring, Signs and Symptoms of Preeclampsia, Labor Signs, Cervical Ripening/Labor Induction Counseling, Postterm Counseling, Infant Feeding, Education, Family Medical Leave or Disability Forms, Depression, Depression and Intimate Partner Violence; Discussed Trial of Labor after Counseling and Discussed Tobacco Cessation ROS Const Reports system reviewed and no additional complaints, except as documented, Denies fatigue, Denies headache(s) and Denies lethargy ENT Denies headache(s) Card Reports system reviewed and no additional complaints, except as documented Resp Reports system reviewed and no additional complaints, except as documented GI Reports system reviewed and no additional complaints, except as documented, Denies abdominal pain, Denies constipation, Denies cramping, Denies diarrhea and Denies dyspepsia Reports system reviewed and no additional complaints, except as documented, Denies abnormal vaginal bleeding, Denies difficulty voiding, Denies dyspareunia and Denies dysuria Musc Reports system reviewed and no additional complaints, except as documented Skin/Breast Reports system reviewed and no additional complaints, except as documented Neuro Yes system reviewed and no additional complaints, except as documented and No headache(s) Psych Reports system reviewed and no additional complaints, except as documented, Denies anhedonia and Denies anxiety Endo Reports system reviewed and no additional complaints, except as documented and Denies fatigue Exam Const General: cooperative, healthy appearing and comfortable Neck Neck: normal visual inspection and full ROM Chest Chest palpation & inspection: normal inspection of the chest Breast inspection: normal inspection of the breasts and normal inspection of the axillae Breast palpation: normal palpation of the breasts and normal palpation of the axillae Resp Effort & Inspection: normal respiratory effort and able to speak in complete sentences GI Inspection: normal to inspection Palpation: soft External Female Exam: normal external appearance and normal appearance of the urethra Urethra: normal appearance of the urethra Skin General: no rashes or lesions noted Neuro General: patient alert, patient awake and patient oriented x3 Extrem General: normal to inspection and full ROM Psych Appearance: grossly normal and well kempt Mental Status: mental status grossly normal Mood: congruent mood Affect: normal affect Speech and Movement: speech and movement normal Thought Process: normal Thought Content: normal Coding Level of Care Code Off vis,est,level 4 Diagnoses Missed O02.1 Rh negative state in antepartum period O26.899; Z67.91 Supervision of normal Z34.90 8 weeks gestation of Z3A.08 Weeks of gestation: 8 weeks Assessment and Plan Assessment and Plan After discussing the patient's diagnosis and treatment plan options, patient wishes to proceed with surgical management. I have discussed with the patient the risks, benefits, and alternatives of the procedure which include but are not limited to risks of anesthesia, bleeding, infection, possible damage to bowel, bladder, or surrounding vasculature which could lead to additional surgery to evaluate any complications. Patient agrees to procedure and wishes to proceed. ACOG/uptodate references given for additional information regarding procedure. (1) Missed : plan for suction D&C today
--- NOTE | 2025-07-19 13:00 | POC_PTH ---
PATIENT: GREGORY RANKIN LOC: [facility] [place][id number] AGE/SX: 25/ ROOM: RE07/19/[address]: Dr. Latasha Becker DO : 2000 BED: DIS: 07/19/2025 SPEC #: [id number] RECD: 07/19/25 14:46 STATUS: AVINASH LEON #: [id number] KHADIJAH: 07/19/25 13:[address]: Latasha Becker DEPT: SURGICAL PATHOLOGY RECD BY: Channing Guillen ENTERED: 07/19/25 16:01 SP TYPE: PROD CONC OTHR DR: No Primary Care Phys Tissues: A - Product of conception, NOS Procedures: Surgery Specimen Level IV HEADER OPERATION: Dilation and curettage, suction PRE-OP DIAGNOSIS: Missed TISSUE SUBMITTED: A- Products of conception MICROSCOPIC DIAGNOSIS A. Uterine contents, suction curettage: - Products of conception. - Immature chorionic villi, decidua, and hypersecretory endometrium. MICROSCOPIC DESCRIPTION Slides are reviewed. GROSS DESCRIPTION A. Received in formalin labeled with the patient's name and date of . Designated as products of conception is a 38 g, 10.4 x 7.9 x 1.4 cm aggregate of gonzalez-pink to red soft tissue fragments and foamy blood clot and papilliferous tissue fragments (suspicious for chorionic villi). parts are not present. Surveillance Camera Technician sections are submitted in 3 cassettes. ND 07/19/2025 CPT:42515
[2025-07-19] MEDS: Lactated Ringers 500 ML IV (13:19)
[2025-07-19] MEDS: Cefazolin 1 GM/5 ML Vial 2 GM IV (13:19)
[2025-07-19] MEDS: Midazolam 2 MG/2 ML Syringe IV (13:20)
[2025-07-19] MEDS: fentaNYL 100 MCG/2 ML Ampul IV (13:21)
[2025-07-19] MEDS: Lidocaine 1% (5 ml sdv) 5 ML Vial IV (13:22)
--- NOTE | 2025-07-19 13:22 | PCM.DC ---
Discharge Instructions DC O2, CPAP, BIPAP needs Home O2 Discharge instructions: No Dressing / Incision Discharge Activity: Return to Normal Activity, May Shower and May Take a Tub Bath (after 1 week) May resume sexual activity in: 1-2 weeks Weight Bearing Status: Weight bearing as tolerated Lifting Restrictions: none Dressing / Incision Call your doctor if you observe: Fever of 101 or Higher, Using more than 1 pad per hour, Shortness of breath and Uncontrolled pain Follow Up Care Please Follow Up With: Latasha Becker DO When: Call [phone] to schedule appointment. Test Results: Test results from this visit will be discussed in further detail at your follow-up appointment, if applicable. Discharge Plan Admission Primary Reason for Your Visit: dilation and curettage Attending Provider: Latasha Becker Primary Care Provider: Jacy Chino Primary Instructions Print Language: Setswana Discharge Orders/Prescriptions Prescriptions: New ibuprofen 800 mg tablet 800 mg PO Q8H PRN (Reason: pain) Qty: 20 0RF Continued PNV Tabs 20-1 20 mg iron- 1 mg tablet 1 tab PO DAILY pyridoxine (vitamin B6) 100 mg tablet 100 mg PO QDAY cholecalciferol (vitamin D3) [Vitamin D3] 25 mcg (1,000 unit) capsule 25 mcg PO DAILY Other Ambulatory Orders: CBC-Complete Blood Cnt No Diff (Routine) Timeframe: 20250718 Facility: [facility] - Location: Laboratory Ordered By: Dr. Latasha Becker Type & Screen - PAT ONLY (Routine) Timeframe: 20250719 Facility: [facility] - Location: Laboratory Ordered By: Dr. Latasha Becker Referrals / Follow Up: Care Physician,Jacy Primary [Primary Care Provider] - Disposition Disposition (needs filled in before D/C Order can be placed): Home, Self Care
[2025-07-19] MEDS: Lidocaine 1% (20 ml mdv) 20 ML Vial (13:30)
--- NOTE | 2025-07-19 13:39 | PCM.OPRPT ---
Problems Associated Problem List Diagnoses (1) Missed : Multi Select Codes Urinary/Genital Urinary/Genital CPT Codes: 16391 Surg Trtmt missed Ab 1TM Operative Report (Standard) Operative Information Date of Procedure: 07/19/25 Pre-Operative Diagnosis: 7 weeks missed Post-Operative Diagnosis: 7 weeks missed Surgery/Procedure Performed: suction dilation and curettage safety clothing and equipment developer: No Type of Anesthesia: MAC/Supplemental RN Documented Start/Stop Times: Operation Date: 07/19/25 13:00 Case Time Into Pre-Op 07/19/25 11:28 Anesthesia Start 07/19/25 13:19 Into Room 07/19/25 13:19 Procedure Start Time: 13:19 Procedure Stop Time: 13:39 Select all DRAINS/GRAFTS/IMPLANTS that apply: None Estimated Blood Loss: 50cc Specimen collected: Yes Description of specimen(s) removed: endometrial curetting's/products of conception Description of surgery: Patient was taken to the operating room and placed under MAC local anesthesia. She was prepped and draped in the normal sterile fashion the dorsal lithotomy position. Bladder was drained of clear urine and anterior lip of the cervix was grasped and the uterus sounded to 12cm. The cervix was injected with 10cc of 1% lidocaine at the 2 and 10:00 positions. The cervix was progressively dilated to allow passage of a size 8 suction curette. Progressive passes were made removing the retained products of conception without complication. Sharp curettage confirmed complete removal of the retained products. All instruments were removed from the vagina and excellent hemostasis was noted and the patient was taken to recovery in stable condition. IM methergine was given to help contract the uterus. Surgical Findings: products of conception removed. Complications Complications: No Admit VTE Documentation VTE Present on Admission: No VTE Mechan Device Prophylaxis: SCD's VTE Pharm Prophylaxis ordered?: No
--- NOTE | 2025-07-19 13:48 | PCM.POST.ANE ---
Anesthesia: Postop Eval I Current Vital Signs Temperature: 97 F Pulse Rate: 73 Blood Pressure: 97/51 Respiratory Rate: 16 Pulse Ox: 98 Oxygen Delivery Method: Room Air Assessment Airway patent: Yes Spontaneous unlabored respirations: Yes Mental status: Awake and Calm nausea: No Vomiting: No Anesthesia Complication: No Fluid Hydration Crystalloid volume administer (ml): 500 Total IV fluid infused: 500 Progress Note Anesthesia document: Postop Eval 1 completed: Yes
--- NOTE | 2025-07-19 15:22 | POSTOPAN2_ITS ---
Anesthesia Postop Eval I Sum Postop Eval Completion status Anesthesia document: Postop Eval 1 completed: Yes Anesthesia Postop Eval I Summary Anesthesia Postop Eval I Summary: Anesthesia Postop Eval I: Assessment Summary Airway patent Yes 07/19/25 13:48 [email or web address] Spontaneous unlabored Yes 07/19/25 13:48 [email or web address] respirations Mental status Awake,Calm 07/19/25 13:48 [email or web address] nausea No 07/19/25 13:48 [email or web address] Vomiting No 07/19/25 13:48 [email or web address] Anesthesia Postop Eval I: Fluid Summary Crystalloid volume administer 500 07/19/25 13:48 [email or web address] (ml) Colloids volume administered ( ml) Blood Product volume administered (ml) Total IV fluid infused 500 07/19/25 13:48 [email or web address] Anesthesia Postop Eval I: Summary Notes Anesthesia Complication No 07/19/25 13:48 [email or web address] Anesthesia Complication Comment: Post-operative progress note Anesthesia: Postop Eval II Evaluation Mental status: Awake and Calm Pain Level: 1 nausea: No Vomiting: No Complications Anesthesia Complication: No
--- NOTE | 2025-07-19 15:22 | PCM.POSTANE2 ---
Anesthesia Postop Eval I Sum Postop Eval Completion status Anesthesia document: Postop Eval 1 completed: Yes Anesthesia Postop Eval I Summary Anesthesia Postop Eval I Summary: Anesthesia Postop Eval I: Assessment Summary Airway patent Yes 07/19/25 13:48 SANDING LINE [email or web address] Spontaneous unlabored Yes 07/19/25 13:48 SANDING LINE [email or web address] respirations Mental status Awake,Calm 07/19/25 13:48 SANDING LINE [email or web address] nausea No 07/19/25 13:48 SANDING LINE [email or web address] Vomiting No 07/19/25 13:48 SANDING LINE [email or web address] Anesthesia Postop Eval I: Fluid Summary Crystalloid volume administer 500 07/19/25 13:48 SANDING LINE [email or web address] (ml) Colloids volume administered ( ml) Blood Product volume administered (ml) Total IV fluid infused 500 07/19/25 13:48 SANDING LINE [email or web address] Anesthesia Postop Eval I: Summary Notes Anesthesia Complication No 07/19/25 13:48 SANDING LINE [email or web address] Anesthesia Complication Comment: Post-operative progress note Anesthesia: Postop Eval II Evaluation Mental status: Awake and Calm Pain Level: 1 nausea: No Vomiting: No Complications Anesthesia Complication: No
--- OUTSIDE RECORDS SUMMARY | 2025-07-19 18:58 | XMS RPT_ITS | CCD ---
Author Organization [facility] Care Team Providers Care Inspector Brake Lining Name Role Phone Care Physician, No Primary Primary Care Provider Unavailable Care Physician, No Primary Referring Provider Un available Dr. Latasha Becker Attending Provider [phone] Care Physician, No Primary Primary Care Provider Unavailable Care Physician, No Primary Referring Provider Un available Dr. Latasha Becker Attending Provider [phone] MILLER Saleh Attending Provider Care Physician, No Primary Primary Care Provider Unavailable Care Physician, No Primary Referring Provider Un available Sarah Beth FLOOR HELPERROMEL Attending Provider Care Physician, No Primary Primary Care Provider Unavailable Care Physician, No Primary Referring Provider Un available MILLER Saleh Attending Provider Sarah Beth FLOOR HELPERROMEL Attending Provider [phone] Care Physician, No Primary Primary Care Provider Unavailable Care Physician, No Primary Referring Provider Un available MILLER Saleh Attending Provider Dr. Nicol Liu Referring Provider [phone] Dr. Nicol Liu Other Provider Dr. Latasha Becker Admit Provider Dr. Latasha Becker Attending Provider [phone] Dr. Latasha Becker Referring Provider [phone] Dr. Latasha Becker Other Provider MILLER Brandt Attending Provider [phone] Care Physician, No Primary Primary Care Provider Unavailable Care Physician, No Primary Referring Provider Un available Marissa Brandt CNM Attending Provider [phone] Dr. Latasha Becker DO Attending Provider Dr. Latasha Becker DO Referring Provider Dr. Latasha Becker DO Other Provider [phone] Care Physician, No Primary Referring Unava ilable Care Physician, No Primary Primary Care Unava ilable Marissa Brandt Attending Unavailable Latasha Becker Consulting Unavailabl e Care Physician, No Primary Primary Care Unava ilable Latasha Becker Referring Unavailmonica e Latasha Becker Attending Unavailabl e Care Physician, No Primary Primary Care Unava ilable Latasha Becker Referring Radha e Latasha Becker Attending Gallitoabl e Medications Current Medications Medication Drug Class(es) Dates Sig (Normalized) Sig (Original) cholecalciferol 0.025 mg oral capsule (1 source) Vitamin D Start: 07-18-2025 take 1 capsule by mouth once daily Cholecalciferol (Vitamin D3) (Vitamin D3) 25 mcg (1,000 unit) capsule Active 25 ug PO DAILY July 18, 2025 12:00am ibuprofen 800 mg oral tablet (1 source) Nonsteroidal Anti-inflammatory Drug Start: 07-19-2025 take 1 tablet by mouth every eight hours as needed for pain Ibuprofen 800 mg tablet Active 800 mg PO Q8H as needed for pain 20 0 July 19, 2025 12:00am Iron (9 sources) Start: 07-06-2025 Pnv No.611-Rdji-Gwadkn No.10 (Pnv Tabs 20-1) 20 mg iron- 1 mg tablet Active 1 {tbl} PO DAILY July 06, 2025 12:00am Start: 07-06-2025 Pnv No.163-Iro n-Folate No.10 (Pnv Tabs 20-1) 20 mg iron- 1 mg tablet Active {tbl} PO DAILY July 06, 2025 12:00am Start: 08-18-2022 End: 07-06-2025 Pnv No.410-Oqrs-Ctlffx No.10 (Pnv Tabs 20-1) 20 mg iron- 1 mg tablet Discontinued 1 {tbl} PO DAILY August 18, 2022 12:00am July 06, 2025 3:48pm Start: 08-18-2022 Pnv No.163-Iro n-Folate No.10 (Pnv Tabs 20-1) 20 mg iron- 1 mg tablet Active 1 TABLET PO DAILY August 18, 2022 12:00am Start: 08-18-2022 Pnv No.163-Iro n-Folate No.10 (Pnv Tabs 20-1) 20 mg iron- 1 mg tablet Active TABLET PO August 17, 2022 11:00pm Start: 08-18-2022 Pnv No.163-Iro n-Folate No.10 (Pnv Tabs 20-1) 20 mg iron- 1 mg tablet Active TABLET PO August 18, 2022 12:00am vitamin b6 100 mg oral tablet (2 sources) Start: 07-06-2025 take 1 tablet by mouth once daily Pyridoxine (Vitamin B6) 100 mg tablet Active 100 mg PO daily July 06, 2025 12:00am Completed/Discontinued Medications Medication Drug Class(es) Dates Sig (Normalized) Sig (Original) Mv-Mins 63-Qgte-Kgoru No.1-Dha (Pnv-[place]) 28-1-300 mg capsule (2 sources) Start: 07-06-2025 End: 07-06-2025 Mv-Mins 72-Qqht-Pkffy No.1-Dha (Pnv-[place]) 28-1-300 mg capsule Discontinued NMA PO July 06, 2025 12:00am July 06, 2025 3:49pm Problems Active Problems Problem Classification Problem Date Documented Date Episodic/Chronic Other complications of ; puerperium affecting management of mother (2 sources) heart deceleration 03-16-2023 Episodic Comment on above: with doppler Other complications of (10 sources) RhD negative; Translations: [Other specified related conditions, unspecified trimester] 01-04-2023 Episodic Comment on above: Rhogam @ 28 rhogam 28 wk, pp and prn bleedinghusband is also rh-. blood bank card verified. Other complications of (11 sources) Other specified related conditions, unspecified trimester; Translations: [Other specified complications of , antepartum condition or complication] Onset: 07-19-2025 11-17-2022 Episodic Other complications of (5 sources) Missed miscarriage; Translations: [Missed ] 07-18-2025 Episodic Comment on above: JV in to rescan. D&C planned. Other complications of (1 source) Missed ; Translations: [Missed ] Onset: 07-19-2025 Episodic Other and delivery including normal (20 sources) ; Translations: [Encounter for supervision of normal , unspecified, unspecified trimester] Onset: 07-19-2025 Episodic Comment on above: , CHARU 02/21/26, DAVID Bradshaw, Imani Terrence discussed NIPT & Car rier testing-undecided gbs negative. discus sed genetic and carrier testing and declines , CHARU 03/25/23, P Scarlett Leeann Terrence Residual codes; unclassified (1 source) Unspecified blood type, Rh negative; Translations: [Unspecified blood type, Rh negative] Onset: 07-19-2025 Episodic Residual codes; unclassified (1 source) 8 weeks gestation of ; Translations: [8 weeks gestation of ] Onset: 07-19-2025 Episodic Past or Other Problems Problem Classification Problem Date Documented Da te Episodic/Chronic Unclassified (1 source) heart deceleration; Translations: [ heart deceleration] 03-16-2023 Results Test Name Value Interpretation Reference Range Facility Discharge Instructionon Discharge Instruction [facility] Medical Records Department [address] [place] [address] Instructions for Home/Discharge Instructions 07/19/25 1322 MR#: [id number] Acct: [id number] Name: MASSIELGREGORY Kelly Rep #: [id number] : 2000 25 From: Latasha Becker DO PCP: Care Physician,No Primary Status:REG SDC Discharge Instructions DC O2, CPAP, BIPAP needs Home O2 Discharge instructions: No Dressing / Incision Discharge Activity: Return to Normal Activity, May Shower and May Take a Tub Bath (after 1 week) May resume sexual activity in: 1-2 weeks Weight Bearing Status: Weight bearing as tolerated Lifting Restrictions: none Dressing / Incision Call your doctor if you observe: Fever of 101 or Higher, Using more than 1 pad per hour, Shortness of breath and Uncontrolled pain Follow Up Care Please Follow Up With: Latasha Becker DO When: Call [phone] to schedule appointment. Test Results: Test results from this visit will be discussed in further detail at your follow-up appointment, if applicable. Discharge Plan Admission Primary Reason for Your Visit: dilation and curettage Attending Provider: Latasha Becker Primary Care Provider: Care Physician,No Primary Instructions Print Language: Cuban Discharge Orders/Prescriptions Prescriptions: New ibuprofen 800 mg tablet 800 mg PO Q8H PRN (Reason: pain) Qty: 20 0RF Continued PNV Tabs 20-1 20 mg iron- 1 mg tablet 1 tab PO DAILY pyridoxine (vitamin B6) 100 mg tablet 100 mg PO QDAY cholecalciferol (vitamin D3) [Vitamin D3] 25 mcg (1,000 unit) capsule 25 mcg PO DAILY Other Ambulatory Orders: CBC-Complete Blood Cnt No Diff (Routine) Timeframe: 20250718 Facility: [facility] - Location: Laboratory Ordered By: Dr. Latasha Lenz Screen - PAT ONLY (Routine) Timeframe: 20250719 Facility: [facility] - Location: Laboratory Ordered By: Dr. Latasha Becker Referrals / Follow Up: Care Physician,No Primary [Primary Care Provider] - Disposition Disposition (needs filled in before D/C Order can be placed): Home, Self Care 07/19/25 1324 Latasha Becker DO CC: No Primary Care Physician Signed Normal [facility] MR/POSTOP.Tamara 07-19-2025 MR/POSTOP.[facility] Medical Records Department [address] [place] [address] Anesthesia Postop Eval I 07/19/25 1348 MR#: [id number] Acct: [id number] Name: GREGORY RANKIN Rep #: [id number] : 2000 25 From: Gavin Rene CRNA PCP: Care Physician,No Primary Status:REG SDC Y Race: C Location: [place] [address] Anesthesia: Postop Eval I Current Vital Signs Temperature: 97 F Pulse Rate: 73 Blood Pressure: 97/51 Respiratory Rate: 16 Pulse Ox: 98 Oxygen Delivery Method: Room Air Assessment Airway patent: Yes Spontaneous unlabored respirations: Yes Mental status: Awake and Calm nausea: No Vomiting: No Anesthesia Complication: No Fluid Hydration Crystalloid volume administer (ml): 500 Total IV fluid infused: 500 Progress Note Anesthesia document: Postop Eval 1 completed: Yes 07/19/25 1348 Date Gavin Johnsongarrett MEASUREMENT PSYCHOLOGIST Cosigner Signature: Date CC: Signed Normal [facility] MR/[id number] 07-19-2025 [facility] Department [address] [place] [address] Anesthesia Postop Eval II 07/19/25 1522 MR#: [id number] Acct: [id number] Name: GREGORY RANKIN Rep #: [id number] : 2000 25 From: Jamie Lehman MEASUREMENT PSYCHOLOGIST PCP: Care Physician,No Primary Status:[facility] Y Race: C Location: [place] Anesthesia Postop Eval I Sum Postop Eval Completion status Anesthesia document: Postop Eval 1 completed: Yes Anesthesia Postop Eval I Summary Anesthesia Postop Eval I Summary: Anesthesia Postop Eval I: Assessment Summary Airway patent Yes 07/19/25 13:48 MEASUREMENT PSYCHOLOGIST.LINHLOU Spontaneous unlabored Yes 07/19/25 13:48 MEASUREMENT PSYCHOLOGIST.JAMIE respirations Mental status Awake,Calm 07/19/25 13:48 MEASUREMENT PSYCHOLOGIST.JBLOU nausea No 07/19/25 13:48 MEASUREMENT PSYCHOLOGIST.JBLOU Vomiting No 07/19/25 13:48 MEASUREMENT PSYCHOLOGIST.JBLOU Anesthesia Postop Eval I: Fluid Summary Crystalloid volume administer 500 07/19/25 13:48 MEASUREMENT PSYCHOLOGIST.JBLOU (ml) Colloids volume administered ( ml) Blood Product volume administered (ml) Total IV fluid infused 500 07/19/25 13:48 MEASUREMENT PSYCHOLOGIST.JBLOU Anesthesia Postop Eval I: Summary Notes Anesthesia Complication No 07/19/25 13:48 MEASUREMENT PSYCHOLOGIST.JBLOU Anesthesia Complication Comment: Post-operative progress note Anesthesia: Postop Eval II Evaluation Mental status: Awake and Calm Pain Level: 1 nausea: No Vomiting: No Complications Anesthesia Complication: No 07/19/25 1522 Date Jamie Lehman MEASUREMENT PSYCHOLOGIST Cosigner Signature: Date CC: Signed Normal [facility] Operative Reporton 5 Operative Report [facility] Medical Records Department [address] [place] [address] Operative Report 07/19/25 1339 MR#: [id number] Acct: [id number] Name: GREGORY RANKIN Rep #: [id number] : 2000 25 From: Latasha Becker DO PCP: Care Physician,No Primary Status:[facility] Location: [place] [address] Problems Associated Problem List Diagnoses (1) Missed : Multi Select Codes Urinary/Genital Urinary/Genital CPT Codes: 77997 Surg Trtmt missed Ab 1TM Operative Report (Standard) Operative Information Date of Procedure: 07/19/25 Pre-Operative Diagnosis: 7 weeks missed Post-Operative Diagnosis: 7 weeks missed Surgery/Procedure Performed: suction dilation and curettage parking analyst: No Type of Anesthesia: MAC/Supplemental RN Documented Start/Stop Times: Operation Date: 07/19/25 13:00 Case Time Into Pre-Op 07/19/25 11:28 Anesthesia Start 07/19/25 13:19 Into Room 07/19/25 13:19 Procedure Start Time: 13:19 Procedure Stop Time: 13:39 Select all DRAINS/GRAFTS/IMPLAN TS that apply: None Estimated Blood Loss: 50cc Specimen collected: Yes Description of specimen(s) removed: endometrial curetting's/products of conception Description of surgery: Patient was taken to the operating room and placed under MAC local anesthesia. She was prepped and draped in the normal sterile fashion the dorsal lithotomy position. Bladder was drained of clear urine and anterior lip of the cervix was grasped and the uterus sounded to 12cm. The cervix was injected with 10cc of 1% lidocaine at the 2 and 10:00 positions. The cervix was progressively dilated to allow passage of a size 8 suction curette. Progressive passes were made removing the retained products of conception without complication. Sharp curettage confirmed complete removal of the retained products. All instruments were removed from the vagina and excellent hemostasis was noted and the patient was taken to recovery in stable condition. IM methergine was given to help contract the uterus. Surgical Findings: products of conception removed. Complications Complications: No Admit VTE Documentation VTE Present on Admission: No VTE Mechan Device Prophylaxis: SCD's VTE Pharm Prophylaxis ordered?: No 07/19/25 1341 Cosigner Signature (if applicable): CC: Dr. Latasha Becker, DO; No Primary Care Physician Signed Normal [facility] Founding Partner Office Visit Reporton 07-18-2025 Founding Partner Office Visit Report [facility] [address] [place] [address], [address] [place] [address] OFFICE VISIT Date of Service: 07/18/25 MR#: [id number] Acct: [id number] Name: GREGORY RANKIN Rep #: [id number] : 2000 Provider: MILLER Coe ams Age/Sex: 25/F Location: [facility] Status: Signed Intake Vital Signs 04/29/23 09:49 07/18/25 08:28 Height 5 ft 3 in 5 ft 3 in Weight: 158 lb 4 oz BMI 28.0 BP 108/68 Intake Visit Reasons: *EST* NOB LMP 7, CHARU 02/21 Recreation Program Coordinator Required: No Is patient in pain?: No Allergies No Known Allergies Allergy (Verified 07/18/25 08:31) Medications ???Medication ???Instructions ???Recorded ???Confirmed ???Type vitamins no.163-iron tab PO DAILY 07/06/25 History bis-gly 20 mg-folate no.10 1 mg tablet (PNV Tabs 20-1) pyridoxine (vitamin B6) 100 mg 100 mg PO QDAY 07/06/25 History tablet Last Menstrual Period: 05/17/25 Zika: Zika virus screening: Negative [facility] Medical History heart deceleration Rh negative state in antepartum period Supervision of normal , antepartum Social History adopted: No household members: spouse and children housing: house number of children: 2 current occupational status: unemployed current occupation: [employer] current occupational exposures/hazards: No pets and animals: No history of recent travel: No sexually active: Yes Smoking Status: Never smoker alcohol intake: never substance use type: does not use well-balanced diet: daily or most days caffeine: No eating out: rarely or never during the past year weight has: remained stable what type of physical activity do you participate in: walking and other details: core exercises frequency: daily duration: 45-60 minutes/day yesika/lutheran: Jain seatbelt use: always do you feel safe at home: Yes additional social history: - Terrence - Essence santiago History 3 Elective abortions Hx Para 2 Spontaneous abortions Hx # Term Pregnancies Ectopic pregnancies Hx # Pregnancies Multiple births # of living children 2 Past Pregnancies Del. Date Name GA/Weeks Outcome Route Bth Weight Infant Gen Labor Lgth Anesthesia Del Locatn Provider FOB 07/08/20 Leeann Aly 41 live - full term 8#0oz Female none [facility] Massiel Ocampo 03/15/23 Imani 38 live - full term 7#2oz Female none [facility] Fabiano Frost Delivery Date: 07/08/20 Last Updated by: Sharee Barroso IOL, pitocin HPI *EST* NOB LMP 05/17, CHARU 02/21 Details: GREGORY RANKIN is a 25 year old who presents for New OB visit. No heart rate noted on US, and no color flow to fetus- measuring 8.[address] Becker in to rescan and discussion for D C. OB Visit CHARU Calculator Estimated Delivery Date Method Current WG Current Estimate 02/21/26 LMP (Certain) 8w 6d Comments: HIV: Urine Culture: Sequential Screen: NIPT Screen: Estimated Due Date: 02/21/26 Expected Delivery Route/Plan Labor Preferences- CB/BF classes: [] labor support person: [] labor intervention preferences: [] pain management options preferred: [] cut cord/dad catch: [] : [] PP control planned: [] discussed possible routes of delivery and associated risks: [] special requests: [] Specific Issue/Plans Covid status: [] Flu vaccine: [] Tdap vaccine: [] Rhogam: [] LARC form signed: [] Problem list reviewed and updated with the most current plan of care details and appropriate orders placed. Relevant counseling for the gestational age provided. Continue routine care and follow up unless otherwise noted in visit notes/problem list details Initial Weight: 158 lb Date -???-???-???-???-??? -???-???-???-???-??? -???-???- EGA Weight BP Urine Prot -???-???-???-???-??? -???-???-???-???-??? -???-???- Glucose FHR FuHt Pres Dilation -???-???-???-???-??? -???-???-???-???-??? -???-???- Effaced St Visit Note 07/18/25 -???-???-???-???-??? -???-???-???-???-??? -???-???- 8w 6d 158 lb 4 oz (+4 oz) 108/68 -???-???-???-???-??? -???-???-???-???-??? -???-???- -???-???-???-???-??? -???-???-???-???-??? -???-???- KW- No FHT n oted on US. JV in to mitzy. Kelly Pantoja discussed. Menstrual History Last Menstrual Period: 05/17/25 Reported LMP: definite Normal amount/duration: Yes Frequency in days: 25-28 On hormonal BC at conception: No hCG+: 08/04/25 Antepartum Record Genetic Screening: Congenital Heart Defect: Other, Neural Tube Defect: Other, Hemoglobinopathy Or Carrier: Other, Cystic Fibrosis: Other, Chromosome Abnormality: Other, Leonardo-Sachs: Other, Hemophilia: Other, Intellectual Disabilit (more content not included)... Normal [facility] Cervical or vagninal specime n microscopic examination by cytology stain (reported asOrdered By: Therese Saleh on 04-29-2023 Cytology report Cyto stain Doc (Cvx/Vag) Comment . [facility] Comment on above: The Pap smear is a s creening test designed to aid in thedetection of premalignant and malignant conditions of theuterine cervix. It is not a diagnostic procedure andshould not be used as the sole means of detecting cervicalcancer. Both false-positive and false-negative reports dooccur. Laboratory - CytologyOrdered By: Therese Saleh on 04-29-2023 Market Specialist Cyto stain Nom (Cvx/Vag) [ID] Comment . [facility] Comment on above: Kim cantu, Machine Puller And Laster (ASCP) Laboratory - Miscellaneous t estsOrdered By: Therese Saleh on 04-29-2023 Service comment (Unsp spec) [Interp] Comment . [facility] Comment on above: This liquid based Th inPrep(R) pap test was screened withthe use of an image guided system. Service comment (Unsp spec) [Interp] . . [facility] No Panel InformationOrdered By: Therese Saleh on 04-29-2023 Human Papillomavirus Screen Comment . [facility] Comment on above: The HPV DNA reflex c ezra were not met with this specimenresult therefore, no HPV testing was performed.Performed at: [facility] [id number] Director: Ambar Melchor MD, Phone: [phone] Pathology report final diagnosis Narrative Comment . [facility] Comment on above: NEGATIVE FOR INTRAEP ITHELIAL LESION OR MALIGNANCY. Absolute lymphocyte countOrd ered By: Dr. Rodriguez on 03-15-2023 Lymphocytes Auto (Unsp spec) [#/Vol] 2.13 10*3/uL 0.83-4.51 [facility] Basophil percentageOrdered B y: Dr. Rodriguez on 03-15-2023 Basophils/100 WBC (Bld) 0.3 % 0-1 [facility] Eosinophils/100 WBC (Bld) 0.9 % 0-5 [facility] Neutrophils (Bld) [#/Vol] 7.5 10*3/uL 2.0-7.7 [facility] Neutrophils/100 WBC (Bld) 71.0 % 47-70 [facility] WBC (Bld) [#/Vol] 10.6 10*3/uL 4.4-11.0 [facility] Blood erythrocytes count (nu mber/volume)Ordered By: Dr. Rodriguez on 03-15-2023 RBC (Bld) [#/Vol] 4.37 10*6/uL 4.2-5.4 [facility] Blood hemoglobin measurement (mass/volume)Ordered By: Dr. Rodriguez on 03-15-2023 Hemoglobin (Bld) [Mass/Vol] 13.8 g/dL 12.0-15.0 [facility] Blood lymphocytes/100 leukoc ytesOrdered By: Dr. Rodriguez on 03-15-2023 Lymphocytes/100 WBC (Bld) 20.1 % 19-41 [facility] Blood monocytes/100 leukocyt esOrdered By: Dr. Rodriguez on 03-15-2023 Monocytes/100 WBC (Bld) 7.4 % 0-10 [facility] Blood platelet mean volumeOr dered By: Dr. Rodriguez on 03-15-2023 Platelet mean volume (Bld) [Entitic vol] 9.7 fL 6.2-12.0 [facility] Determination of erythrocyte mean corpuscular volume (MCV)Ordered By: Dr. Rodriguez on 03-15-2023 MCV (RBC) [Entitic vol] 92.7 fL 81-99 [facility] Hematocrit Auto (Bld) [Volum e fraction]Ordered By: Dr. Rodriguez on 03-15-2023 Hematocrit (Bld) [Volume fraction] 40.5 % 37-47 [facility] Laboratory - Hematology and Cell countsOrdered By: Dr. Rodriguez on 03-15-2023 Erythrocyte distribution width (RBC) [Entitic vol] 45.7 fL 35.1-43.9 [facility] Erythrocyte distribution width (RBC) [Ratio] 13.4 % 11.6-14.6 [facility] Immature granulocytes/100 WBC (Bld) 0.300 % 0.0-0.9 [facility] Comment on above: IG% - Immature Granu locytes (promyelocytes, myelocytes and metamyelocytes) > 1% indicates that a LEFT SHIFT is Present. MCH (RBC) [Entitic mass] 31.6 pg 27.0-32.0 [facility] Nucleated RBC/100 WBC (Bld) [Ratio] 0 % 0-5 [facility] MCHC Auto (RBC) [Mass/Vol]Or dered By: Dr. Rodriguez on 03-15-2023 MCHC (RBC) [Mass/Vol] 34.1 g/dL 32-36 [facility] Platelets bldOrdered By: Dr. Rodriguez on 03-15-2023 Platelets (Bld) [#/Vol] 168 10*3/uL 150-450 [facility] Serum Treponema species anti body detectionOrdered By: Dr. Rodriguez on 03-15-2023 Treponema sp Ab Ql (S) Non-Reactive [facility] No Panel InformationOrdered By: Therese Saleh on 03-05-2023 Group B Streptococcus Culture Group B Beta Streptococcus is not isolated. [facility] Chlamydia trachomatis rRNA d etection by probe and target amplification methodOrdered By: Therese Saleh on 03-02-2023 C. trachomatis rRNA MAMIE+probe Ql (Unsp spec) Negative Negative [facility] Laboratory - Chemistry and C hemistry - challengeon 03-02-2023 Glucose Ql (U) Negative [facility] Laboratory - Microbiology an d Antimicrobial susceptibilityOrdered By: Therese Saleh on 03-02-2023 N. gonorrhoeae DNA MAMIE+probe Ql (Unsp spec) Negative Negative [facility] Comment on above: Performed at: =[facility] [id number] Director: Ambar Melchor MD, Phone: [phone] Laboratory - Urinalysison Protein Ql (U) Negative [facility] Laboratory - Chemistry and C hemistry - challengeon 02-23-2023 Glucose Ql (U) Negative [facility] Laboratory - Urinalysison Protein Ql (U) Negative [facility] Laboratory - Chemistry and C hemistry - challengeon 02-09-2023 Glucose Ql (U) Negative [facility] Laboratory - Urinalysison Protein Ql (U) Trace [facility] Laboratory - Chemistry and C hemistry - challengeon 01-26-2023 Glucose Ql (U) Negative [facility] Laboratory - Urinalysison Protein Ql (U) Negative [facility] Absolute lymphocyte countOrd ered By: Therese Saleh on 01-04-2023 Lymphocytes Auto (Unsp spec) [#/Vol] 1.96 10*3/uL 0.83-4.51 [facility] Basophil percentageOrdered B y: Therese Saleh on 01-04-2023 Basophils/100 WBC (Bld) 0.3 % 0-1 [facility] Eosinophils/100 WBC (Bld) 1.7 % 0-5 [facility] Neutrophils (Bld) [#/Vol] 7.7 10*3/uL 2.0-7.7 [facility] Neutrophils/100 WBC (Bld) 72.8 % 47-70 [facility] WBC (Bld) [#/Vol] 10.6 10*3/uL 4.4-11.0 [facility] Blood erythrocytes count (nu mber/volume)Ordered By: Therese Saleh on 01-04-2023 RBC (Bld) [#/Vol] 3.84 10*6/uL 4.2-5.4 [facility] Blood hemoglobin measurement (mass/volume)Ordered By: Therese Saleh on 01-04-2023 Hemoglobin (Bld) [Mass/Vol] 11.9 g/dL 12.0-15.0 [facility] Blood lymphocytes/100 leukoc ytesOrdered By: Therese Saleh on 01-04-2023 Lymphocytes/100 WBC (Bld) 18.5 % 19-41 [facility] Blood monocytes/100 leukocyt esOrdered By: Therese Saleh on 01-04-2023 Monocytes/100 WBC (Bld) 5.6 % 0-10 [facility] Blood platelet mean volumeOr dered By: Therese Saleh on 01-04-2023 Platelet mean volume (Bld) [Entitic vol] 8.5 fL 6.2-12.0 [facility] Determination of erythrocyte mean corpuscular volume (MCV)Ordered By: Therese Saleh on 01-04-2023 MCV (RBC) [Entitic vol] 92.7 fL 81-99 [facility] Gestational diabetes screen 1-hour screen with 50g oral glucose loadOrdered By: Therese Saleh on 01-04-2023 Glucose 1 Hr post 50 g glucose PO [Mass/Vol] 130 mg/dL 70-140 [facility] HIV 1 and HIV-2 antibody ass ay with HIV-1 p24 antigen detectionOrdered By: Therese Saleh on 01-04-2023 HIV 1+2 Ab+HIV1 p24 Ag IA Ql Non-Reactive Nonreactive [facility] Hematocrit Auto (Bld) [Volum e fraction]Ordered By: Therese Saleh on 01-04-2023 Hematocrit (Bld) [Volume fraction] 35.6 % 37-47 [facility] - Chemistry and C hemistry - challengeon 01-04-2023 Glucose Ql (U) Negative [facility] - Hematology and Cell countsOrdered By: Therese Saleh on 01-04-2023 Erythrocyte distribution width (RBC) [Entitic vol] 42.5 fL 35.1-43.9 [facility] Erythrocyte distribution width (RBC) [Ratio] 12.7 % 11.6-14.6 [facility] Immature granulocytes/100 WBC (Bld) 1.100 % 0.0-0.9 [facility] Comment on above: IG% - Immature Granu locytes (promyelocytes, myelocytes and metamyelocytes) > 1% indicates that a LEFT SHIFT is Present. MCH (RBC) [Entitic mass] 31.0 pg 27.0-32.0 [facility] Nucleated RBC/100 WBC (Bld) [Ratio] 0 % 0-5 [facility] - Urinalysison Protein Ql (U) Negative [facility] MCHC Auto (RBC) [Mass/Vol]Or dered By: Therese Saleh on 01-04-2023 MCHC (RBC) [Mass/Vol] 33.4 g/dL 32-36 [facility] No Panel InformationOrdered By: Stacy Burleson on 01-04-2023 Hepatitis B Surface Antigen Non-Reactive Nonreactive [facility] Hepatitis C Antibody Non-Reactive Nonreactive [facility] Comment on above: Non Reactive: < 0.8 Equivocal: >/= 0.8 to < 1.0 Reactive: >/= 1.0The [facility] recommends that a reactive/equivocal HCV antibody result be followed up by the HCV Nucleic Acid Amplificationtest (637947) Platelets bldOrdered By: Liz Saleh on 01-04-2023 Platelets (Bld) [#/Vol] 213 10*3/uL 150-450 [facility] Serum Treponema species anti body detectionOrdered By: Therese Saleh on 01-04-2023 Treponema sp Ab Ql (S) Non-Reactive [facility] - Chemistry and C hemistry - challengeon 12-15-2022 Glucose Ql (U) Negative [facility] - Urinalysison Protein Ql (U) Negative [facility] Absolute lymphocyte countOrd ered By: Dr. Rodriguez on 11-12-2022 Lymphocytes Auto (Unsp spec) [#/Vol] 1.75 10*3/uL 0.83-4.51 [facility] Basophil percentageOrdered B y: Dr. Rodriguez on 11-12-2022 Basophils/100 WBC (Bld) 0.2 % 0-1 [facility] Eosinophils/100 WBC (Bld) 1.1 % 0-5 [facility] Neutrophils (Bld) [#/Vol] 6.4 10*3/uL 2.0-7.7 [facility] Neutrophils/100 WBC (Bld) 72.0 % 47-70 [facility] WBC (Bld) [#/Vol] 8.9 10*3/uL 4.4-11.0 [facility] Blood erythrocytes count (nu mber/volume)Ordered By: Dr. Rodriguez on 11-12-2022 RBC (Bld) [#/Vol] 4.03 10*6/uL 4.2-5.4 [facility] Blood hemoglobin measurement (mass/volume)Ordered By: Dr. Rodriguez on 11-12-2022 Hemoglobin (Bld) [Mass/Vol] 12.7 g/dL 12.0-15.0 [facility] Blood lymphocytes/100 leukoc ytesOrdered By: Dr. Rodriguez on 11-12-2022 Lymphocytes/100 WBC (Bld) 19.8 % 19-41 [facility] Blood monocytes/100 leukocyt esOrdered By: Dr. Rodriguez on 11-12-2022 Monocytes/100 WBC (Bld) 6.4 % 0-10 [facility] Blood platelet mean volumeOr dered By: Dr. Rodriguez on 11-12-2022 Platelet mean volume (Bld) [Entitic vol] 8.8 fL 6.2-12.0 [facility] Determination of erythrocyte mean corpuscular volume (MCV)Ordered By: Dr. Rodriguez on 11-12-2022 MCV (RBC) [Entitic vol] 90.6 fL 81-99 [facility] Hematocrit Auto (Bld) [Volum e fraction]Ordered By: Dr. Rodriguez on 11-12-2022 Hematocrit (Bld) [Volume fraction] 36.5 % 37-47 [facility] - Hematology and Cell countsOrdered By: Dr. Rodriguez on 11-12-2022 Erythrocyte distribution width (RBC) [Entitic vol] 46.0 fL 35.1-43.9 [facility] Erythrocyte distribution width (RBC) [Ratio] 13.9 % 11.6-14.6 [facility] Immature granulocytes/100 WBC (Bld) 0.500 % 0.0-0.9 [facility] Comment on above: IG% - Immature Granu locytes (promyelocytes, myelocytes and metamyelocytes) > 1% indicates that a LEFT SHIFT is Present. MCH (RBC) [Entitic mass] 31.5 pg 27.0-32.0 [facility] Nucleated RBC/100 WBC (Bld) [Ratio] 0 % 0-5 [facility] MCHC Auto (RBC) [Mass/Vol]Or dered By: Dr. Rodriguez on 11-12-2022 MCHC (RBC) [Mass/Vol] 34.8 g/dL 32-36 [facility] No Panel InformationOrdered By: Dr. Rodriguez on 11-12-2022 Rubella IgG Antibody Non-Reactive Nonreactive [facility] Comment on above: Antibody Results Int erpretation of Immune Status Non Reactive Presumed Non-Immune Equivocal Equivocal Reactive Presumed Immune Platelets bldOrdered By: Dr. Rodriguez on 11-12-2022 Platelets (Bld) [#/Vol] 190 10*3/uL 150-450 [facility] - Chemistry and C hemistry - challengeon 09-21-2022 Glucose Ql (U) Negative [facility] - Urinalysison Protein Ql (U) Negative [facility] Culture, urine Bacteria identified Cx Nom (U) Positive [facility] Work Phone: Vital Signs Date Time Vital Sign Value Performing Clinician Faci lity 07-19-2025 14:05-0400 Body temperature 98.7 [degF] No Primary Care Physician [facility] 07-19-2025 14:05-0400 Diastolic blood pressure 70 mm[Hg] No Primary Care Physician [facility] 07-19-2025 14:05-0400 Heart rate 58 /min No Primary Care Physician [facility] 07-19-2025 14:05-0400 Respiratory rate 16 /min No Primary Care Physician [facility] 07-19-2025 14:05-0400 SaO2% (BldA) [Mass fraction] 99 % No Primary Care Physician [facility] 07-19-2025 14:05-0400 Systolic blood pressure 92 mm[Hg] No Primary Care Physician [facility] 07-19-2025 11:46-0400 Body height 160.02 cm No Primary Care Physician [facility] 07-19-2025 11:46-0400 Body mass index (BMI) [Ratio] 27.4 kg/m2 No Primary Care Physician [facility] 07-19-2025 11:46-0400 Body weight 70.3 kg No Primary Care Physician [facility] 07-18-2025 08:28-0400 Body height 160.02 cm No Primary Care Physician [facility] 07-18-2025 08:28-0400 Body mass index (BMI) [Ratio] 28 kg/m2 No Primary Care Physician [facility] 07-18-2025 08:28-0400 Body weight 71.78 kg No Primary Care Physician [facility] 07-18-2025 08:28-0400 Diastolic blood pressure 68 mm[Hg] No Primary Care Physician [facility] 07-18-2025 08:28-0400 Systolic blood pressure 108 mm[Hg] No Primary Care Physician [facility] 04-29-2023 09:49-0400 Body height 160.02 cm No Primary Care Physician [facility] 04-29-2023 09:42-0400 Body mass index (BMI) [Ratio] 28.2 kg/m2 No Primary Care Physician [facility] 04-29-2023 09:42-0400 Body weight 72.29 kg No Primary Care Physician [facility] 04-29-2023 09:42-0400 Diastolic blood pressure 66 mm[Hg] No Primary Care Physician [facility] 04-29-2023 09:42-0400 Systolic blood pressure 102 mm[Hg] No Primary Care Physician [facility] 03-16-2023 09:10-0400 Body temperature 98 [degF] No Primary Care Physician [facility] 03-16-2023 09:10-0400 Diastolic blood pressure 53 mm[Hg] No Primary Care Physician [facility] 03-16-2023 09:10-0400 Heart rate 83 /min No Primary Care Physician [facility] 03-16-2023 09:10-0400 Respiratory rate 16 /min No Primary Care Physician [facility] 03-16-2023 09:10-0400 SaO2% (BldA) [Mass fraction] 97 % No Primary Care Physician [facility] 03-16-2023 09:10-0400 Systolic blood pressure 102 mm[Hg] No Primary Care Physician [facility] 03-15-2023 03:49-0400 Body mass index (BMI) [Ratio] 30.1 kg/m2 No Primary Care Physician [facility] 03-15-2023 03:49-0400 Body weight 77.2 kg No Primary Care Physician [facility] 03-11-2023 09:52-0400 Body mass index (BMI) [Ratio] 32 kg/m2 No Primary Care Physician [facility] 03-11-2023 09:52-0400 Body weight 79.37 kg No Primary Care Physician [facility] 03-11-2023 09:47-0400 Diastolic blood pressure 67 mm[Hg] No Primary Care Physician [facility] 03-11-2023 09:47-0400 Heart rate 63 /min No Primary Care Physician [facility] 03-11-2023 09:47-0400 Systolic blood pressure 119 mm[Hg] No Primary Care Physician [facility] 03-11-2023 09:45-0400 Body temperature 98.4 [degF] No Primary Care Physician [facility] 03-11-2023 09:45-0400 SaO2% (BldA) [Mass fraction] 98 % No Primary Care Physician [facility] 03-11-2023 08:40-0400 Body weight 79.83 kg No Primary Care Physician [facility] 03-11-2023 08:40-0400 Diastolic blood pressure 70 mm[Hg] No Primary Care Physician [facility] 03-11-2023 08:40-0400 Systolic blood pressure 114 mm[Hg] No Primary Care Physician [facility] 03-02-2023 08:46-0400 Body height 160.02 cm No Primary Care Physician [facility] 03-02-2023 08:45-0400 Body mass index (BMI) [Ratio] 30.8 kg/m2 No Primary Care Physician [facility] 03-02-2023 08:45-0400 Body weight 78.92 kg No Primary Care Physician [facility] 03-02-2023 08:45-0400 Diastolic blood pressure 60 mm[Hg] No Primary Care Physician [facility] 03-02-2023 08:45-0400 Heart rate 77 /min No Primary Care Physician [facility] 03-02-2023 08:45-0400 Systolic blood pressure 95 mm[Hg] No Primary Care Physician [facility] 02-23-2023 08:49-0400 Body mass index (BMI) [Ratio] 30.8 kg/m2 No Primary Care Physician [facility] 02-23-2023 08:49-0400 Body weight 78.92 kg No Primary Care Physician [facility] 02-23-2023 08:49-0400 Diastolic blood pressure 69 mm[Hg] No Primary Care Physician [facility] 02-23-2023 08:49-0400 Heart rate 76 /min No Primary Care Physician [facility] 02-23-2023 08:49-0400 Systolic blood pressure 115 mm[Hg] No Primary Care Physician [facility] 02-09-2023 08:13-0400 Body mass index (BMI) [Ratio] 30.4 kg/m2 No Primary Care Physician [facility] 02-09-2023 08:13-0400 Body weight 78.01 kg No Primary Care Physician [facility] 02-09-2023 08:13-0400 Diastolic blood pressure 67 mm[Hg] No Primary Care Physician [facility] 02-09-2023 08:13-0400 Heart rate 108 /min No Primary Care Physician [facility] 02-09-2023 08:13-0400 Systolic blood pressure 103 mm[Hg] No Primary Care Physician [facility] 01-26-2023 08:40-0400 Body mass index (BMI) [Ratio] 30.1 kg/m2 No Primary Care Physician [facility] 01-26-2023 08:40-0400 Body weight 77.11 kg No Primary Care Physician [facility] 01-26-2023 08:40-0400 Diastolic blood pressure 67 mm[Hg] No Primary Care Physician [facility] 01-26-2023 08:40-0400 Heart rate 83 /min No Primary Care Physician [facility] 01-26-2023 08:40-0400 Systolic blood pressure 102 mm[Hg] No Primary Care Physician [facility] 01-04-2023 14:20-0500 Body height 160.02 cm No Primary Care Physician [facility] 01-04-2023 14:14-0500 Body mass index (BMI) [Ratio] 29.4 kg/m2 No Primary Care Physician [facility] 01-04-2023 14:14-0500 Body weight 75.4 kg No Primary Care Physician [facility] 01-04-2023 14:14-0500 Diastolic blood pressure 62 mm[Hg] No Primary Care Physician [facility] 01-04-2023 14:14-0500 Systolic blood pressure 104 mm[Hg] No Primary Care Physician [facility] 12-15-2022 09:12-0500 Body mass index (BMI) [Ratio] 29.2 kg/m2 No Primary Care Physician [facility] 12-15-2022 09:12-0500 Body weight 74.84 kg No Primary Care Physician [facility] 12-15-2022 09:12-0500 Diastolic blood pressure 61 mm[Hg] No Primary Care Physician [facility] 12-15-2022 09:12-0500 Heart rate 76 /min No Primary Care Physician [facility] 12-15-2022 09:12-0500 Systolic blood pressure 116 mm[Hg] No Primary Care Physician [facility] 11-17-2022 09:19-0500 Body mass index (BMI) [Ratio] 28.1 kg/m2 No Primary Care Physician [facility] 11-17-2022 09:19-0500 Body weight 72.12 kg No Primary Care Physician [facility] 11-17-2022 09:19-0500 Diastolic blood pressure 76 mm[Hg] No Primary Care Physician [facility] 11-17-2022 09:19-0500 Heart rate 129 /min No Primary Care Physician [facility] 11-17-2022 09:19-0500 Systolic blood pressure 117 mm[Hg] No Primary Care Physician [facility] 09-21-2022 11:06-0500 Body height 160.02 cm No Primary Care Physician [facility] Work Phone: 09-21-2022 11:06-0500 Body mass index (BMI) [Ratio] 27.3 kg/m2 No Primary Care Physician [facility] 09-21-2022 11:06-0500 Body weight 70.08 kg No Primary Care Physician [facility] 09-21-2022 11:06-0500 Diastolic blood pressure 72 mm[Hg] No Primary Care Physician [facility] 09-21-2022 11:06-0500 Systolic blood pressure 116 mm[Hg] No Primary Care Physician [facility] 08-27-2022 14:54-0400 Body height 160.02 cm No Primary Care Physician [facility] Work Phone: 08-27-2022 14:54-0400 Body mass index (BMI) [Ratio] 27.3 kg/m2 No Primary Care Physician [facility] Work Phone: 08-27-2022 14:54-0400 Body weight 70.08 kg No Primary Care Physician [facility] Work Phone: 08-27-2022 14:54-0400 Diastolic blood pressure 69 mm[Hg] No Primary Care Physician [facility] Work Phone: 08-27-2022 14:54-0400 Systolic blood pressure 113 mm[Hg] No Primary Care Physician [facility] Work Phone: Encounters Encounter Date Encounter Type Care Provider Facility Start: 07-19-2025 Encounter for other preprocedural examination Latasha Becker [facility] Start: 07-19-2025 ambulatory Latasha Abbott cility:[facility] Start: 07-19-2025 Non-patient / Non-visit Dr. Bony Becker DO [facility] Start: 07-19-2025 End: 07-19-2025 Admission to same day surgery center Dr. Latasha Becker DO [facility] Start: 07-19-2025 End: 07-19-2025 ambulatory No Primary Care Physician -[facility] Start: 07-18-2025 End: 07-18-2025 Patient encounter procedure Marissa Brandt [facility] Work Phone: Start: 07-18-2025 End: 07-18-2025 ambulatory No Primary Care Physician [facility] Start: 04-29-2023 End: 04-29-2023 ambulatory No Primary Care Physician [facility] Work Phone: Start: 04-29-2023 End: 04-29-2023 Patient encounter procedure No Primary Care Physician [facility]Laboratory, Specimen Start: 04-29-2023 End: 04-29-2023 Patient encounter procedure No Primary Care Physician [facility] Start: 03-16-2023 Non-patient / Non-visit No Esther meraz Care Physician [facility] Start: 03-15-2023 Non-patient / Non-visit No Esther meraz [facility] Physician [facility] Start: 03-15-2023 End: 03-16-2023 Evaluation and management of inpatient No Primary Care Physician [facility] Start: 03-11-2023 Non-patient / Non-visit No Esther mariya Care Physician [facility] Start: 03-11-2023 End: 03-11-2023 Patient encounter procedure No Primary Care Physician [facility], Outpatients Start: 03-11-2023 End: 03-11-2023 Patient encounter procedure No Primary Care Physician [facility] @ Start: 03-02-2023 End: 03-02-2023 ambulatory No Primary Care Physician [facility] Work Phone: Start: 03-02-2023 End: 03-02-2023 Patient encounter procedure No Primary Care Physician [facility]Laboratory, Specimen Start: 03-02-2023 End: 03-02-2023 Patient encounter procedure No Primary Care Physician [facility] @ Start: 02-23-2023 End: 02-23-2023 Patient encounter procedure No Primary Care Physician [facility] @ Start: 02-09-2023 End: 02-09-2023 Patient encounter procedure No Primary Care Physician [facility] @ Start: 01-26-2023 End: 01-26-2023 Patient encounter procedure No Primary Care Physician [facility] @ Start: 01-04-2023 End: 01-04-2023 ambulatory No Primary Care Physician [facility] Work Phone: Start: 01-04-2023 End: 01-04-2023 Patient encounter procedure No Primary Care Physician [facility] Start: 12-15-2022 End: 12-15-2022 Patient encounter procedure No Primary Care Physician [facility] @ Start: 11-17-2022 End: 11-17-2022 Patient encounter procedure No Primary Care Physician [facility] @ Start: 11-12-2022 End: 11-12-2022 ambulatory No Primary Care Physician [facility] Work Phone: Start: 11-12-2022 End: 11-12-2022 Patient encounter procedure No Primary Care Physician [facility] Ultrasound Start: 09-21-2022 End: 09-21-2022 Patient encounter procedure No Primary Care Physician [facility] Start: 08-27-2022 End: 08-27-2022 ambulatory No Primary Care Physician [facility] Work Phone: Start: 08-27-2022 End: 08-27-2022 Patient encounter procedure No Primary Care Physician [facility]Laboratory, Specimen Start: 08-27-2022 End: 08-27-2022 Patient encounter procedure No Primary Care Physician [facility] Procedures Date Procedure Procedure Detail Performing Clinician Start: 07-19-2025 Dilation and curetta ge of uterus No Primary Care Physician Start: 03-11-2023 Ultrasonography for biophysical profile without non-stress testing No Primary Care Physician Start: 11-12-2022 anatomy study No Primary Care Physician Group B Streptococcu s Culture No Primary Care Physician Urine culture No Primary Car e Physician Plan of Treatment Date Care Activity Detail Author Start: 07-19-2025 Ambulation without limitation [facility] Start: 07-19-2025 Medical regimen orders management [facility] Start: 07-19-2025 Medication education [facility] Start: 07-19-2025 Patient discharge [facility] Start: 07-19-2025 Procedure discontinued [facility] Start: 07-19-2025 Taking patient vital signs [facility] Start: 07-19-2025 Vital signs measurements [facility] Start: 07-19-2025 [facility] Start: 04-29-2023 Liquid based cervical cytology screening [facility] Start: 03-16-2023 Patient discharge [facility] Start: 03-15-2023 Administration of medication [facility] Start: 03-15-2023 Application of ice collar, cap or bag [facility] Start: 03-15-2023 Catheterization of vein [facility] Start: 03-15-2023 Introduction of urinary catheter [facility] Start: 03-15-2023 Measuring intake and output [facility] Start: 03-15-2023 Notification of physician [facility] Start: 03-15-2023 Procedure discontinued [facility] Start: 03-15-2023 Provision of activity privileges [facility] Start: 03-15-2023 Vital signs measurements [facility] Start: 03-15-2023 [facility] Start: 03-15-2023 Admission procedure [facility] Start: 03-11-2023 Nonstress test [facility] Start: 03-11-2023 Obstetric monitoring [facility] Start: 03-11-2023 Vital signs measurements [facility] Start: 03-11-2023 [facility] Start: 03-11-2023 Patient discharge [facility] Anti-D (Rh) immunoglobulin [facility] CBC W Auto Different ial panel - Blood [facility] Work Phone: Complete blood count [facility] anatomy study [facility] Work Phone: anatomy study [facility] Patient Education [facility] Triage: Return to Hospital or Notify Physician if you Experience: [facility] Work Phone: Patient referral [facility] Work Phone: Rubella IgG measurement [facility] Work Phone: Transvaginal obstetr ic ultrasonography [facility] Work Phone: Transvaginal obstetr ic ultrasonography [facility] Payers Date Payer Category Payer Self-pay [id number] 2025 Unknown [id number] Unknown [facility] P[employer]AN [id number] Unknown [id number] Unknown [id number] Unknown [id number] Social History Date Type Detail Facility Start: 08-27-2022 End: 04-29-2023 Tobacco smoking status NHIS Unknown if ever smoked [facility] Start: 2000 Sex Assigned At Female [facility] Start: 07-06-2025 End: 07-18-2025 Tobacco smoking status NHIS Never smoked tobacco (finding) [facility] Patient currentl y [facility] Goals Date Patient Goal Desired Activity /State Mental Status Date Assessment Result Facility 07-19-2025 Cognitive function Voice/Name [facility] Work Phone: Clinical Notes 04-29-2023 to 07-19-2025 Note Date & Type Note Facility 07-19-2025 Consult note [facility] 07-19-2025 History and physical note Note Date/Time July 19, 2025 12:36pm [facility] Medical Records Department [address] [place] [address] History & Physical Exam 07/19/25 1235 MR#: [id number] Acct: [id number] Name: GREGORY RANKIN Rep #:[id number] : 2000 25 From: Latasha Becker DO PCP: Care Physician,No Primary Status :[facility] [place] Location: [place] [address] History and Physical Date of Admission: 07/19/25 Intake Vital Signs 04/29/2309:49 07/18/2508:28 Height 5 ft 3 in 5 ft 3 in Weight: 158 lb 4 oz BMI 28.0 BP 108/68 Intake Visit Reasons: *EST* NOB LMP 7, CHARU 02/21 Recreation Program Coordinator Required: No Is patient in pain?: No Allergies No Known Allergies Allergy (Verified 07/18/25 08:31) Medications ?Medication ?Instructions ?Recorded ?Confirmed ?Type vitamins no.163-iron tab PO DAILY 07/06/25 History bis-gly 20 mg-folate no.10 1 mg tablet (PNV Tabs 20-1) pyridoxine (vitamin B6) 100 mg 100 mg PO QDAY 07/06/25 History tablet Last Menstrual Period: 05/17/25 Zika: Zika virus screening: Negative [facility] Medical History heart deceleration Rh negative state in antepartum period Supervision of normal , antepartum Social History adopted: No household members: spouse and children housing: house number of children: 2 current occupational status: unemployed current occupation: [employer] current occupational exposures/hazards: No pets and animals: No history of recent travel: No sexually active: Yes Smoking Status: Never smoker alcohol intake: never substance use type: does not use well-balanced diet: daily or most days caffeine: No eating out: rarely or never during the past year weight has: remained stable what type of physical activity do you participate in: walking and other details: core exercises frequency: daily duration: 45-60 minutes/day yesika/lutheran: Jain seatbelt use: always do you feel safe at home: Yes additional social history: - Terrence - [facility] History 3 Elective abortions Hx Para 2 Spontaneous abortions Hx # Term Pregnancies Ectopic pregnancies Hx # Pregnancies Multiple births # of living children 2 Past Pregnancies Del. Date Name GA/Weeks Outcome Route Bth Weight Infant Gen Labor Lgth Anesthesia Del Locatn Provider FOB 07/08/20 Leeann Aly 41 live - full term 8#0oz F emale none [facility] Massiel Ocampo 03/15/23 Imani 38 live - full term 7#2oz Fem ezra none [facility] Miah Velcarlos Delivery Date: 07/08/20 Last Updated by: Sharee Barroso IOL, pitocin HPI *EST* NOB LMP 7/, CHARU 02/21 Details: GREGORY RANKIN is a 25 year old who presents for New OB visit. No heart rate noted on US, and no color flow to fetus- measuring 8.2 weeks. She is here for a suction D&C. OB Visit CHARU Calculator Estimated Delivery Date Method Current WG Current Estimate 02/21/26 LMP (Certain) 8w 6d Comments: HIV: Urine Culture: Sequential Screen: NIPT Screen: Estimated Due Date: 02/21/26 Expected Delivery Route/Plan Labor Preferences- CB/BF classes: [] labor support person: [] labor intervention preferences: [] pain management options preferred: [] cut cord/dad catch: [] : [] PP control planned: [] discussed possible routes of delivery and associated risks: [] special requests: [] Specific Issue/Plans Covid status: [] Flu vaccine: [] Tdap vaccine: [] Rhogam: [] LARC form signed: [] Problem list reviewed and updated with the most current plan of care details and appropriate orders placed. Relevant counseling for the gestational age provided. Continue routine care and follow up unless otherwise noted in visit notes/problem list details Initial Weight: 158 lb Date -?-?-?-?-?-?-?-?-?-?-?-?- EGA Weight BP Urine Prot -?-?-?-?-?-?-?-?-?-?-?-?- Glucose FHR FuHt Pres Dilation -?-?-?-?-?-?-?-?-?-?-?-?- Effaced St Visit Note 07/18/25-?-?-?-?-?-?-?-?-?-?-?-?- 8w 6d 158 lb 4 oz(+4 oz) 108/68 -?-?-?-?-?-?-?-?-?-?-?-?- -?-?-?-?-?-?-?--?-?-?-?-?- KW- No FHT noted on US. JV in to rescan. D&C discussed. Menstrual History Last Menstrual Period: 05/17/25 Reported LMP: definite Normal amount/duration: Yes Frequency in days: 25-28 On hormonal BC at conception: No hCG+: 06/18/25 Antepartum Record Genetic Screening: Congenital Heart Defect: Other, Neural Tube Defect: Other, Hemoglobinopathy Or Carrier: Other, Cystic Fibrosis: Other, Chromosome Abnormality: Other, Leonardo-Sachs: Other, Hemophilia: Other, Intellectual Disability/Autism: Other, Recurrent Loss/Stillbirth: Other, Other Structural Defect: Other, Other Genetic Disease: Other and Maternal Metabolic Disorder: Other Infection History: Live with someone with TB or Exposed to TB: No, Patient or Partner has history of Genital Herpes: No, Rash or Viral illness since last mentrual period: No, Prior GBS-Infected child: No, History of STD: No, HIV Infection: No, History of Hepatitis: No, Recent travel outside of [place]: No, Concern for hepatitis exposure: No, Varicella immune: Yes (immune- virus) and Covid Vaccinated: No Medical History Medical History: Positive: D (Rh) Sensitized (O-) and Negative: Diabetes, Hypertension, Heart disease, Auto-immune disorder, Kidney disease/UTI, Neurologic/epilepsy, Psychiatric, Depression/ depression, Hepatitis/liver disease, Varicosities/phlebitis, Thyroid dysfunction, Trauma/domestic violence, History of blood transfusions, Pulmonary (e.g.,TB,Asthma), Seasonal allergies, Drug/latex allergies/reactions, Breast, A R Collections Rep surgery, Operations/hospitalizations, Anesthetic complications, History of abnormal pap, Uterine anomaly/mignon, Infertility, Anti-retroviral treatment, Relevant family history and Other ACOG First Trimester First Trimester: Desire for , Alcohol, Tobacco Cessation, Illicit/Recreational Drug/Substance Use, Intimate Partner Violence, Barriers to care, Unstable Housing, Communication Barriers, Environmental/Work Hazards, Anticipated Course of Care, Nurtrition and weight gain, Toxoplasmosis Precations, Use of Any medications, Sexual activity, Exercise, Dental Care, Sauna/Hot tub use, Seat Belt use, Childbirth classes/Hospital facilities, Travel, Indications for Ultrasound and Screening for Aneuploidy Second Trimester Second Trimester: Signs and Symptoms of Labor, Selecting a care provider, Reproductive Life Planning & Contreception, Care Planning and Intimate Partner Violence; Discussed Tobacco Cessation and Discussed Depression/Anxiety Third Trimester Third Trimester: Pain Management Plans, Labor support person(s), Immediate Larc, Circumcision preference, Movement Monitoring, Signs and Symptoms of Preeclampsia, Labor Signs, Cervical Ripening/Labor Induction Counseling, Postterm Counseling, Infant Feeding, Education, Family Medical Leave or Disability Forms, Depression, Depression and Intimate Partner Violence; Discussed Trial of Labor after Counseling and Discussed Tobacco Cessation ROS Const Reports system reviewed and no additional complaints, except as documented, Denies fatigue, Denies headache(s) and Denies lethargy ENT Denies headache(s) Card Reports system reviewed and no additional complaints, except as documented Resp Reports system reviewed and no additional complaints, except as documented GI Reports system reviewed and no additional complaints, except as documented, Denies abdominal pain, Denies constipation, Denies cramping, Denies diarrhea and Denies dyspepsia Reports system reviewed and no additional complaints, except as documented, Denies abnormal vaginal bleeding, Denies difficulty voiding, Denies dyspareunia and Denies dysuria Musc Reports system reviewed and no additional complaints, except as documented Skin/Breast Reports system reviewed and no additional complaints, except as documented Neuro Yes system reviewed and no additional complaints, except as documented and No headache(s) Psych Reports system reviewed and no additional complaints, except as documented, Denies anhedonia and Denies anxiety Endo Reports system reviewed and no additional complaints, except as documented and Denies fatigue Exam Const General: cooperative, healthy appearing and comfortable Neck Neck: normal visual inspection and full ROM Chest Chest palpation & inspection: normal inspection of the chest Breast inspection: normal inspection of the breasts and normal inspection of the axillae Breast palpation: normal palpation of the breasts and normal palpation of the axillae Resp Effort & Inspection: normal respiratory effort and able to speak in complete sentences GI Inspection: normal to inspection Palpation: soft External Female Exam: normal external appearance and normal appearance of the urethra Urethra: normal appearance of the urethra Skin General: no rashes or lesions noted Neuro General: patient alert, patient awake and patient oriented x3 Extrem General: normal to inspection and full ROM Psych Appearance: grossly normal and well kempt Mental Status: mental status grossly normal Mood: congruent mood Affect: normal affect Speech and Movement: speech and movement normal Thought Process: normal Thought Content: normal Coding Level of Care Code Off vis,est,level 4 Diagnoses Missed O02.1 Rh negative state in antepartum period O26.899; Z67.91 Supervision of normal Z34.90 8 weeks gestation of Z3A.08 Weeks of gestation: 8 weeks Assessment and Plan Assessment and Plan After discussing the patient's diagnosis and treatment plan options, patient wishes to proceed with surgical management. I have discussed with the patient the risks, benefits, and alternatives of the procedure which include but are not limited to risks of anesthesia, bleeding, infection, possible damage to bowel, bladder, or surrounding vasculature which could lead to additional surgery to evaluate any complications. Patient agrees to procedure and wishes to proceed. ACOG/uptodate references given for additional information regarding procedure. (1) Missed : plan for suction D&C today 07/19/25 1236 <Electronically signed by Latasha Vande Velde DO> Cosigner Signature (if applicable): CC: Dr. Latasha Becker DO; No Primary Care Physician~ Signed [facility] Work Phone: 1(245) 949-621509-04-2025 Consult note Author Jimi Morocho [facility] Note Date/Time July 19, 2025 12:18pm [facility] Medical Records Department [address] [place] [address] Pre-Anesthesia Evaluation 07/19/25 1213 MR#: [id number] Acct: [id number] Name: GREGORY RANKIN Rep #:[id number] : 2000 From: Jimi Morocho MD PCP: Care Physician,No Primary Status :REG SDC Y Race: C Location: [place] [address] ASA Classification* ASA Classification ASA Classification: 1 Assessment & Plan Anesthesia* Anesthesia Assessment Anesthesia Assessment: Discussed sedation and/or anesthesia options, risks, benefits, and alternatives with patient/parents/legal guardian/POA. Questions invited. The patient/parents/legal guardian/POA seems to understand and agrees to proceedwith anesthesia plan. Reviewed the physical assessment, medical history, allergy history and patient home medications list prior to surgery/procedure/anesthetic and documented any changes. Performed airway and anesthesia risk assessments. Anesthesia Type Anesthesia Type: MAC History Source History Obtained from:: Patient and Chart Anesthesia Focused Assessment* Temperature: 98.4 F Pulse Rate: 61 Blood Pressure: 109/57 Respiratory Rate: 16 Pulse Ox: 100 Oxygen Delivery Method: Room Air Airway Assessment Mouth opens: >3 cm Mallampati Score: I Teeth Condition: Intact Neck Range of motion (ROM): Full ROM Labs Anesthesia Preop lab: CBC WBC 10.6 K/mm3 (4.4-11.0) 03/15/23 03:30 03/15/23 RBC 4.37 M/mm3 (4.2-5.4) 03/15/23 03:30 03/15/23 Hgb 13.8 g/dL (12.0-15.0) 03/15/23 03:30 03/15/23 Hct 40.5 % (37-47) 03/15/23 03:30 03/15/23 Plt Count 168 K/mm3 (150-450) 03/15/23 03:30 03/15/23 CHEMISTRY TSH 0.97 uIU/mL (0.358-3.74) 12/15/19 15:02 COAG Pre-Assessment Diagnosis/Proposed Procedure Planned Operative Procedure(s): SUCTION D&C Anesthesia History 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 When Was Last Pacemaker Check QUESTION #4 FULL TEXT: You/Your Family Experience fever (hyperthermia) with Anesthesia Last Oral Intake Last Oral intake: Last Oral Intake NPO since 06:30 07/19/25 11:46 Meds taken in AM with sips of water? 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 Female Yes 07/18/25 15:30 HX of Motion Sickness No 07/18/25 15:30 HX of N/V After Surgery No 07/18/25 15:30 Non-Smoker Yes 07/18/25 15:30 Duration of Surgery greater No 07/18/25 15:30 than 60 minutes Number of Risk Factors 2 07/18/25 15:30 PONV Score Moderate Risk 07/18/25 15:30 Height & Weight Height & Weight: Anesthesia: Height & Weight Height 5 ft 3 in 07/19/25 11:46 Weight: 70.307 kg 07/19/25 11:46 Body Mass Index (BMI) 27.4 07/19/25 11:46 Respiratory Assessment Respiratory Assessment - dredge pump operator: Respiratory Tract Infection Hx - dredge pump operator Hx Respiratory Tract Infection No 07/18/25 15:30 STOP Sleep Apnea STOP Sleep Apnea - dredge pump operator: STOP Sleep Apnea - dredge pump operator Hx Hypertension No 07/18/25 15:30 Hx Sleep Apnea No 07/18/25 15:30 CPAP BIPAP Do you snore loudly (louder No 07/18/25 15:30 than talking or can be heard Do you often feel tired/ No 07/18/25 15:30 fatigued/ sleepy during daytime? Has anyone observed you stop No 07/18/25 15:30 breathing during sleep? STOP Results Negative 07/18/25 15:30 QUESTION #5 FULL TEXT : Do you snore loudly (louder than talking or can be heard through closed doors)? 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 Specify any problems Hx of Preganancy in last 3 Yes 07/18/25 15:30 Months Nurse Filling Out Transfusion VCHRISTIN 07/18/25 15:30 & Questions: Date: 07/18/25 07/18/25 15:30 Time: 15:31 07/18/25 15:30 Patient unable to answer at this time (ie. 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: /Reproductive Hx- dredge pump operator Hx Now Yes 07/18/25 15:30 Gestational Age (in weeks): EDC: Hx Hx Para Hx Section SAB No 07/18/25 15:30 Active Medications Active Medications: Current Medications Generic Name Dose Route Start Last Admin Trade Name Freq PRN Reason Stop Dose Admin Lactated Ringer's 1,000 mls @ 15 mls/hr 07/19/25 12:00 07/19/25 11:53 IV 15 mls/hr .Q48H VERNON Administration Cefazolin Sodium 2 gm/ Sodium 110 mls @ 200 mls/hr 07/20/25 07:00 Chloride IV 07/20/25 07:32 INTRAOP ONE PFSH Medical History Non-smoker heart deceleration Rh negative state in antepartum period Supervision of normal , antepartum Home Medications ?Medication ?Instructions ?Recorded ?Last Taken ?Type vitamins no.163-iron 1 tab PO DAILY 07/06/25 Unknown History bis-gly 20 mg-folate no.10 1 mg tablet (PNV Tabs 20-1) pyridoxine (vitamin B6) 100 mg 100 mg PO QDAY 07/06/25 Unknown History tablet cholecalciferol (vitamin D3) 25 25 mcg PO DAILY Unknown History mcg (1,000 unit) capsule (Vitamin D3) Allergy/AdvReac Type Severity Reaction Status Date / Time No Known Allergies Allergy Verified 07/19/25 11:45 no surgical history Social History adopted: No household members: spouse and children housing: house number of children: 2 current occupational status: unemployed current occupation: [employer] current occupational exposures/hazards: No pets and animals: No history of recent travel: No sexually active: Yes Smoking Status: Never smoker alcohol intake: never substance use type: does not use well-balanced diet: daily or most days caffeine: No eating out: rarely or never during the past year weight has: remained stable what type of physical activity do you participate in: walking and other details: core exercises frequency: daily duration: 45-60 minutes/day yesika/lutheran: Jain seatbelt use: always do you feel safe at home: Yes 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 07/19/25 1218 <Electronically signed by Jimi jara MD> Date _ Jimi Morocho MD Cosigner Signature: Date CC: ~ Signed [facility] Work Phone: 1(196) 358-738209-04-2025 Procedure note [facility] Medical Records Department [address] [place] [address] Operative Report 07/19/25 1339 MR#: [id number] Acct: [id number] Name: GREGORY RANKIN Rep #:[id number] : 2000 From: Latasha Becker DO PCP: Care Physician,No Primary Status :[facility] Location: [place] [address] Problems Associated Problem List Diagnoses (1) Missed : Multi Select Codes Urinary/Genital Urinary/Genital CPT Codes: 17137 Surg Trtmt missed Ab 1TM Operative Report (Standard) Operative Information Date of Procedure: 07/19/25 Pre-Operative Diagnosis: 7 weeks missed Post-Operative Diagnosis: 7 weeks missed Surgery/Procedure Performed: suction dilation and curettage parking analyst: No Type of Anesthesia: MAC/Supplemental RN Documented Start/Stop Times: Operation Date: 07/19/25 13:00 Case Time Into Pre-Op 07/19/25 11:28 Anesthesia Start 07/19/25 13:19 Into Room 07/19/25 13:19 Procedure Start Time: 13:19 Procedure Stop Time: 13:39 Select all DRAINS/GRAFTS/IMPLANTS that apply: None Estimated Blood Loss: 50cc Specimen collected: Yes Description of specimen(s) removed: endometrial curetting's/products of conception Description of surgery: Patient was taken to the operating room and placed under MAC local anesthesia. She was prepped and draped in the normal sterile fashion the dorsal lithotomy position. Bladder was drained of clear urine and anterior lip of the cervix wasgrasped and the uterus sounded to 12cm. The cervix was injectedwith 10cc of 1%lidocaine at the 2 and 10:00 positions. The cervix was progressively dilated to allow passage of a size 8 suction curette. Progressive passes were made removing the retained products of conception without complication. Sharp curettage confirmed complete removal of the retained products. All instruments were removed from the vagina and excellent hemostasis was noted and the patient was taken to recovery in stable condition. IM methergine was given to help contract the uterus. Surgical Findings: products of conception removed. Complications Complications: No Admit VTE Documentation VTE Present on Admission: No VTE Mechan Device Prophylaxis: SCD's VTE Pharm Prophylaxis ordered?: No 07/19/25 1341 Cosigner Signature (if applicable): CC: Dr. Latasha Becker DO; No Primary Care Physician~ Signed [facility]09-04-2025 Discharge summary [facility] Medical Records Department [address] [place] [address] Instructions for Home/Discharge Instructions 07/19/25 1322 MR#: [id number] Acct: [id number] Name: GREGORY RANKIN Rep #:[id number] : 2000 From: Latasha Becker DO PCP: Yadira Physician,Jacy Primary Status :REG SDC Discharge Instructions DC O2, CPAP, BIPAP needs Home O2 Discharge instructions: No Dressing / Incision Discharge Activity: Return to Normal Activity, May Shower and May Take a Tub Bath (after 1 week) May resume sexual activity in: 1-2 weeks Weight Bearing Status: Weight bearing as tolerated Lifting Restrictions: none Dressing / Incision Call your doctor if you observe: Fever of 101 or Higher, Using more than 1 pad per hour, Shortness of breath and Uncontrolled pain Follow Up Care Please Follow Up With: Latasha Becker DO When: Call [phone] to schedule appointment. Test Results: Test results from this visit will be discussed in further detail at your follow- up appointment, if applicable. Discharge Plan Admission Primary Reason for Your Visit: dilation and curettage Attending Provider: Latasha Becker Primary Care Provider: Care Physician,Jacy Primary Instructions Print Language: Cuban Discharge Orders/Prescriptions Prescriptions: New ibuprofen 800 mg tablet 800 mg PO Q8H PRN (Reason: pain) Qty: 20 0RF Continued PNV Tabs 20-1 20 mg iron- 1 mg tablet 1 tab PO DAILY pyridoxine (vitamin B6) 100 mg tablet 100 mg PO QDAY cholecalciferol (vitamin D3) [Vitamin D3] 25 mcg (1,000 unit) capsule 25 mcg PO DAILY Other Ambulatory Orders: CBC-Complete Blood Cnt No Diff (Routine) Timeframe: 20250718 Facility: [facility] - Location: Laboratory Ordered By: Dr. Latasha Becker Type & Screen - PAT ONLY (Routine) Timeframe: 20250719 Facility: [facility] - Location: Laboratory Ordered By: Dr. Latasha Becker Referrals / Follow Up: Care Physician,No Primary [Primary Care Provider] - Disposition Disposition (needs filled in before D/C Order can be placed): Home, Self Care 07/19/25 1324Jedianne Becker DO CC: No Primary Care Physician ~ Signed [facility]09-04-2025 History and physical note [facility] Medical Records Department [address] [place] [address] History & Physical Exam 07/19/25 1235 MR#: [id number] Acct: [id number] Name: GREGORY RANKIN Rep #:[id number] : 2000 25 From: Latasha Becker DO PCP: Care Physician,No Primary Status :[facility] Location: [place] [address] History and Physical Date of Admission: 07/19/25 Intake Vital Signs 04/29/2309:49 07/18/2508:28 Height 5 ft 3 in 5 ft 3 in Weight: 158 lb 4 oz BMI 28.0 BP 108/68 Intake Visit Reasons: *EST* NOB LMP 7, CHARU 02/21 Recreation Program Coordinator Required: No Is patient in pain?: No Allergies No Known Allergies Allergy (Verified 07/18/25 08:31) Medications ?Medication ?Instructions ?Recorded ?Confirmed ?Type vitamins no.163-iron tab PO DAILY 07/06/25 History bis-gly 20 mg-folate no.10 1 mg tablet (PNV Tabs 20-1) pyridoxine (vitamin B6) 100 mg 100 mg PO QDAY 07/06/25 History tablet Last Menstrual Period: 05/17/25 Zika: Zika virus screening: Negative PFSH PFSH Medical History heart deceleration Rh negative state in antepartum period Supervision of normal , antepartum Social History adopted: No household members: spouse and children housing: house number of children: 2 current occupational status: unemployed current occupation: [employer] current occupational exposures/hazards: No pets and animals: No history of recent travel: No sexually active: Yes Smoking Status: Never smoker alcohol intake: never substance use type: does not use well-balanced diet: daily or most days caffeine: No eating out: rarely or never during the past year weight has: remained stable what type of physical activity do you participate in: walking and other details: core exercises frequency: daily duration: 45-60 minutes/day yesika/lutheran: Jain seatbelt use: always do you feel safe at home: Yes additional social history: - Terrence - Essence santiago History 3 Elective abortions Hx Para 2 Spontaneous abortions Hx # Term Pregnancies Ectopic pregnancies Hx # Pregnancies Multiple births # of living children 2 Past Pregnancies Del. Date Name GA/Weeks Outcome Route Bth Weight Gen Labor Lgth Anesthesia Del Locatn Provider FOB 07/08/20 Leeann Aly 41 live - full term 8#0oz F emale none [facility] Massiel Carpenterus 03/15/23 Imani 38 live - full term 7#2oz Fem ezra none [facility] Miah Velde Delivery Date: 07/08/20 Last Updated by: Sharee Barroso IOL, pitocin HPI *EST* NOB LMP 05/17, CHARU 02/21 Details: GREGORY RANKIN is a 25 year old who presents for New OB visit. No heart rate noted on US, and nocolor flow to fetus- measuring 8.2 weeks. She is here for a suction D&C. OB Visit CHARU Calculator Estimated Delivery Date Method Current WG Current Estimate 02/21/26 LMP (Certain) 8w 6d Comments: HIV: Urine Culture: Sequential Screen: NIPT Screen: Estimated Due Date: 02/21/26 Expected Delivery Route/Plan Labor Preferences- CB/BF classes: [] labor support person: [] labor intervention preferences: [] pain management options preferred: [] cut cord/dad catch: [] : [] PP control planned: [] discussed possible routes of delivery and associated risks: [] special requests: [] Specific Issue/Plans Covid status: [] Flu vaccine: [] Tdap vaccine: [] Rhogam: [] LARC form signed: [] Problem list reviewed and updated with the most current plan of care details and appropriate ordersplaced. Relevant counseling for the gestational age provided. Continue routine care and follow up unless otherwise noted in visit notes/problem list details Initial Weight: 158 lb Date -?-?-?-?-?-?-?-?-?-?-?-?- EGA Weight BP Urine Prot -?-?-?-?-?-?-?-?-?-?-?-?- Glucose FHR FuHt Pres Dilation -?-?-?-?-?-?-?-?-?-?-?-?- Effaced St Visit Note 07/18/25-?-?-?-?-?-?-?-?-?-?-?-?- 8w 6d 158 lb 4 oz(+4 oz) 108/68 -?-?-?-?-?-?-?-?-?-?-?-?- -?-?-?-?-?-?-?--?-?-?-?-?- KW- No FHT noted on US. JV in to rescan. D&C discussed. Menstrual History Last Menstrual Period: 05/17/25 Reported LMP: definite Normal amount/duration: Yes Frequency in days: 25-28 On hormonal BC at conception: No hCG+: 06/18/25 Antepartum Record Genetic Screening: Congenital Heart Defect: Other, Neural Tube Defect: Other, Hemoglobinopathy Or Carrier: Other, Cystic Fibrosis: Other, Chromosome Abnormality: Other, Leonardo-Sachs: Other, Hemophilia: Other, Intellectual Disability/Autism: Other, Recurrent Loss/Stillbirth: Other, Other Structural Defect: Other, Other Genetic Disease: Other and Maternal Metabolic Disorder: Other Infection History: Live with someone with TB or Exposed to TB: No, Patient or Partner has history of Genital Herpes: No, Rash or Viral illness since last mentrual period: No, Prior GBS-Infected child: No, History of STD: No, HIV Infection: No, History of Hepatitis: No, Recent travel outside of [place]: No, Concern for hepatitis exposure: No, Varicella immune: Yes (immune- virus) and Covid Vaccinated: No Medical History Medical History: Positive: D (Rh) Sensitized (O-) and Negative: Diabetes, Hypertension, Heart disease, Auto-immune disorder, Kidney disease/UTI, Neurologic/epilepsy, Psychiatric, Depression/ depression, Hepatitis/liver disease, Varicosities/phlebitis, Thyroid dysfunction, Trauma/domestic violence, History of blood transfusions, Pulmonary (e.g.,TB,Asthma), Seasonal allergies, Drug/latex allergies/reactions, Breast, A R Collections Rep surgery, Operations/hospitalizations, Anesthetic complications, History of abnormal pap, Uterine anomaly/mignon, Infertility, Anti-retroviral treatment, Relevant family history and Other ACOG First Trimester First Trimester: Desire for , Alcohol, Tobacco Cessation, Illicit/Recreational Drug/Substance Use, Intimate Partner Violence, Barriers to care, Unstable Housing, Communication Barriers, Environmental/Work Hazards, Anticipated Course of Care, Nurtrition and weight gain, Toxoplasmosis Precations, Use of Any medications, Sexual activity, Exercise, Dental Care, Sauna/Hot tub use, Seat Belt use, Childbirth classes/Hospital facilities, Travel, Indications for Ultrasound and Screening for Aneuploidy Second Trimester Second Trimester: Signs and Symptoms of Labor, Selecting a care provider, Reproductive Life Planning & Contreception, Care Planning and Intimate Partner Violence; Discussed Tobacco Cessation and Discussed Depression/Anxiety Third Trimester Third Trimester: Pain Management Plans, Labor support person(s), Immediate Larc, Circumcision preference, Movement Monitoring, Signs and Symptoms of Preeclampsia, Labor Signs, Cervical Ripening/Labor Induction Counseling, Postterm Counseling, Infant Feeding, Education, Family Medical Leave or Disability Forms, Depression, Depression and Intimate Partner Violence; Discussed Trial of Labor after Counseling and Discussed Tobacco Cessation ROS Const Reports system reviewed and no additional complaints, except as documented, Denies fatigue, Denies headache(s) and Denies lethargy ENT Denies headache(s) Card Reports system reviewed and no additional complaints, except as documented Resp Reports system reviewed and no additional complaints, except as documented GI Reports system reviewed and no additional complaints, except as documented, Denies abdominal pain, Denies constipation, Denies cramping, Denies diarrhea and Denies dyspepsia Reports system reviewed and no additional complaints, except as documented, Denies abnormal vaginalbleeding, Denies difficulty voiding, Denies dyspareunia and Denies dysuria Musc Reports system reviewed and no additional complaints, except as documented Skin/Breast Reports system reviewed and no additional complaints, except as documented Neuro Yes system reviewed and no additional complaints, except as documented and No headache(s) Psych Reports system reviewed and no additional complaints, except as documented, Denies anhedonia and Denies anxiety Endo Reports system reviewed and no additional complaints, except as documented and Denies fatigue Exam Const General: cooperative, healthy appearing and comfortable Neck Neck: normal visual inspection and full ROM Chest Chest palpation & inspection: normal inspection of the chest Breast inspection: normal inspection of the breasts and normal inspection of the axillae Breast palpation: normal palpation of the breasts and normal palpation of the axillae Resp Effort & Inspection: normal respiratory effort and able to speak in complete sentences GI Inspection: normal to inspection Palpation: soft External Female Exam: normal external appearance and normal appearance of the urethra Urethra: normal appearance of the urethra Skin General: no rashes or lesions noted Neuro General: patient alert, patient awake and patient oriented x3 Extrem General: normal to inspection and full ROM Psych Appearance: grossly normal and well kempt Mental Status: mental status grossly normal Mood: congruent mood Affect: normal affect Speech and Movement: speech and movement normal Thought Process: normal Thought Content: normal Coding Level of Care Code Off vis,est,level 4 Diagnoses Missed O02.1 Rh negative state in antepartum period O26.899; Z67.91 Supervision of normal Z34.90 8 weeks gestation of Z3A.08 Weeks of gestation: 8 weeks Assessment and Plan Assessment and Plan After discussing the patient's diagnosis and treatment plan options, patient wishes to proceed withsurgical management. I have discussed with the patient the risks, benefits, and alternatives of theprocedure which include but are not limited to risks of anesthesia, bleeding, infection, possible damage to bowel, bladder, or surrounding vasculature which could lead to additional surgery to evaluate any complications. Patient agrees to procedure and wishes to proceed. ACOG/uptodate references given for additional information regarding procedure. (1) Missed : plan for suction D&C today 07/19/25 1236 Cosigner Signature (if applicable): CC: Dr. Latasha Becker, DO; No Primary Care Physician~ Signed [facility]09-04-2025 [facility] Medical Records Department [address] [place] [address] History Physical Exam 07/19/25 1235 MR#: [id number] Acct: [id number] Name: GREGORY RANKIN Rep #: [id number] : 2000 25 From: Latasha Becker DO PCP: Care Physician,No Primary Status:[facility] Location: [place] [address] History and Physical Date of Admission: 07/19/25 Intake Vital Signs 04/29/2309:49 07/18/2508:28 Height 5 ft 3 in 5 ft 3 in Weight: 158 lb 4 oz BMI 28.0 BP 108/68 Intake Visit Reasons: *EST* NOB LMP 05/17, CHARU 02/21 Recreation Program Coordinator Required: No Is patient in pain?: No Allergies No Known Allergies Allergy (Verified 07/18/25 08:31) Medications ???Medication ???Instructions ???Recorded ???Confirmed ???Type vitamins no.163-iron tab PO DAILY 07/06/25 History bis-gly 20 mg-folate no.10 1 mg tablet (PNV Tabs 20-1) pyridoxine (vitamin B6) 100 mg 100 mg PO QDAY 07/06/25 History tablet Last Menstrual Period: 05/17/25 Zika: Zika virus screening: Negative PFSH PFSH Medical History heart deceleration Rh negative state in antepartum period Supervision of normal , antepartum Social History adopted: No household members: spouse and children housing: house number of children: 2 current occupational status: unemployed current occupation: [employer] current occupational exposures/hazards: No pets and animals: No history of recent travel: No sexually active: Yes Smoking Status: Never smoker alcohol intake: never substance use type: does not use well-balanced diet: daily or most days caffeine: No eating out: rarely or never during the past year weight has: remained stable what type of physical activity do you participate in: walking and other details: core exercises frequency: daily duration: 45-60 minutes/day yesika/lutheran: Jain seatbelt use: always do you feel safe at home: Yes 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 Date Name GA/Weeks Outcome Route Bth Weight Infant Gen Labor Lgth Anesthesia Del Locatn Provider FOB 07/08/20 Leeann Aly 41 live - full term 8#0oz Female none [facility] Massiel Ocampo 03/15/23 Imani 38 live - full term 7#2oz Female none [facility] Miah Rodriguez Delivery Date: 07/08/20 Last Updated by: Sharee Barroso IOL, pitocin HPI *EST* NOB LMP 05/17, CHARU 02/21 Details: GREGORY RANKIN is a 25 year old who presents for New OB visit. No heart rate noted on US, and no color flow to fetus- measuring 8.2 weeks. She is here for a suction D C. OB Visit CHARU Calculator Estimated Delivery Date Method Current WG Current Estimate 02/21/26 LMP (Certain) 8w 6d Comments: HIV: Urine Culture: Sequential Screen: NIPT Screen: Estimated Due Date: 02/21/26 Expected Delivery Route/Plan Labor Preferences- CB/BF classes: [] labor support person: [] labor intervention preferences: [] pain management options preferred: [] cut cord/dad catch: [] : [] PP control planned: [] discussed possible routes of delivery and associated risks: [] special requests: [] Specific Issue/Plans Covid status: [] Flu vaccine: [] Tdap vaccine: [] Rhogam: [] LARC form signed: [] Problem list reviewed and updated with the most current plan of care details and appropriate orders placed. Relevant counseling for the gestational age provided. Continue routine care and follow up unless otherwise noted in visit notes/problem list details Initial Weight: 158 lb Date -???-???-???-???-???-???-???-???-???-???-???-???- EGA Weight BP Urine Prot -???-???-???-???-???-???-???-???-???-???-???-???- Glucose FHR FuHt Pres Dilation -???-???-???-???-???-???-???-???-???-???-???-???- Effaced St Visit Note 07/18/25-???-???-???-???-???-???-???-???-???-???-???-???- 8w 6d 158 lb 4 oz(+4 oz) 108/68 -???-???-???-???-???-???-???-???-???-???-???-???- -???-???-???-???-???-???-???-???-???-???-???-???- KW- No FHT noted on US. JV in to mitzy. Kelly Pantoja discussed. Menstrual History Last Menstrual Period: 05/17/25 Reported LMP: definite Normal amount/duration: Yes Frequency in days: 25-28 On hormonal BC at conception: No hCG+: 06/18/25 Antepartum Record Genetic Screening: Congenital Heart Defect: Other, Neural Tube Defect: Other, Hemoglobinopathy Or Carrier: Other, Cystic Fibrosis: Other, Chromosome Abnormality: Other, Leonardo- Sachs: Other, Hemophilia: Other, Int (more content not included)...[facility]09-04-2025 Consult note [facility] Medical Records Department [address] [place] [id number] Pre-Anesthesia Evaluation 07/19/25 1213 MR#: [id number] Acct: [id number] Name: GREGORY RANKIN Kelly Rep #:[id number] : 2000 25 From: Jimi Morocho MD PCP: Care Physician,No Primary Status :REG [place] Y Race: C Location: [place] [address] ASA Classification* ASA Classification ASA Classification: 1 Assessment & Plan Anesthesia* Anesthesia Assessment Anesthesia Assessment: Discussed sedation and/or anesthesia options, risks, benefits, and alternatives with patient/parents/legal guardian/POA. Questions invited. The patient/parents/legal guardian/POA seems to understand and agrees to proceedwith anesthesia plan. Reviewed the physical assessment, medical history, allergy history and patient home medications list prior to surgery/procedure/anesthetic and documented any changes. Performed airway and anesthesia risk assessments. Anesthesia Type Anesthesia Type: MAC History Source History Obtained from:: Patient and Chart Anesthesia Focused Assessment* Temperature: 98.4 F Pulse Rate: 61 Blood Pressure: 109/57 Respiratory Rate: 16 Pulse Ox: 100 Oxygen Delivery Method: Room Air Airway Assessment Mouth opens: >3 cm Mallampati Score: I Teeth Condition: Intact Neck Range of motion (ROM): Full ROM Labs Anesthesia Preop lab: CBC WBC 10.6 K/mm3 (4.4-11.0) 03/15/23 03:30 03/15/23 RBC 4.37 M/mm3 (4.2-5.4) 03/15/23 03:30 03/15/23 Hgb 13.8 g/dL (12.0-15.0) 03/15/23 03:30 03/15/23 Hct 40.5 % (37-47) 03/15/23 03:30 03/15/23 Plt Count 168 K/mm3 (150-450) 03/15/23 03:30 03/15/23 CHEMISTRY TSH 0.97 uIU/mL (0.358-3.74) 12/15/19 15:02 COAG Pre-Assessment Diagnosis/Proposed Procedure Planned Operative Procedure(s): SUCTION D&C Anesthesia History 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 When Was Last Pacemaker Check QUESTION #4 FULL TEXT: You/Your Family Experience fever (hyperthermia) with Anesthesia Last Oral Intake Last Oral intake: Last Oral Intake NPO since :07/19/25 11:46 Meds taken in AM with sips of water? 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 Female Yes 07/18/25 15:30 HX of Motion Sickness No 07/18/25 15:30 HX of N/V After Surgery No 07/18/25 15:30 Non-Smoker Yes 07/18/25 15:30 Duration of Surgery greater No 07/18/25 15:30 than 60 minutes Number of Risk Factors 2 07/18/25 15:30 PONV Score Moderate Risk 07/18/25 15:30 Height & Weight Height & Weight: Anesthesia: Height & Weight Height 5 ft 3 in 07/19/25 11:46 Weight: 70.307 kg 07/19/25 11:46 Body Mass Index (BMI) 27.4 07/19/25 11:46 Respiratory Assessment Respiratory Assessment - dredge pump operator: Respiratory Tract Infection Hx - dredge pump operator Hx Respiratory Tract Infection No 07/18/25 15:30 STOP Sleep Apnea STOP Sleep Apnea - dredge pump operator: STOP Sleep Apnea - dredge pump operator Hx Hypertension No 07/18/25 15:30 Hx Sleep Apnea No 07/18/25 15:30 CPAP BIPAP Do you snore loudly (louder No 07/18/25 15:30 than talking or can be heard Do you often feel tired/ No 07/18/25 15:30 fatigued/ sleepy during daytime? Has anyone observed you stop No 07/18/25 15:30 breathing during sleep? STOP Results Negative 07/18/25 15:30 QUESTION #5 FULL TEXT : Do you snore loudly (louder than talking or can be heard through closeddoors)? 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 Specify any problems Hx of Preganancy in last 3 Yes 07/18/25 15:30 Months Nurse Filling Out Transfusion VCHRISTIN 07/18/25 15:30 & Questions: Date: 07/18/25 07/18/25 15:30 Time: 15:31 07/18/25 15:30 Patient unable to answer at this time (ie. 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: /Reproductive Hx- dredge pump operator Hx Now Yes 07/18/25 15:30 Gestational Age (in weeks): EDC: Hx Hx Para Hx Section SAB No 07/18/25 15:30 Active Medications Active Medications: Current Medications Generic Name Dose Route Start Last Admin Trade Name Freq PRN Reason Stop Dose Admin Lactated Ringer's 1,000 mls @ 15 mls/hr 07/19/25 12:00 07/19/25 11:53 IV 15 mls/hr .Q48H VERNON Administration Cefazolin Sodium 2 gm/ Sodium 110 mls @ 200 mls/hr 07/20/25 07:00 Chloride IV 07/20/25 07:32 INTRAOP ONE PFSH Medical History Non-smoker heart deceleration Rh negative state in antepartum period Supervision of normal , antepartum Home Medications ?Medication ?Instructions ?Recorded ?Last Taken ?Type vitamins no.163-iron 1 tab PO DAILY 07/06/25 Unknown History bis-gly 20 mg-folate no.10 1 mg tablet (PNV Tabs 20-1) pyridoxine (vitamin B6) 100 mg 100 mg PO QDAY 07/06/25 Unknown History tablet cholecalciferol (vitamin D3) 25 25 mcg PO DAILY Unknown History mcg (1,000 unit) capsule (Vitamin D3) Allergy/AdvReac Type Severity Reaction Status Date / Time No Known Allergies Allergy Verified 07/19/25 11:45 no surgical history Social History adopted: No household members: spouse and children housing: house number of children: 2 current occupational status: unemployed current occupation: [employer] current occupational exposures/hazards: No pets and animals: No history of recent travel: No sexually active: Yes Smoking Status: Never smoker alcohol intake: never substance use type: does not use well-balanced diet: daily or most days caffeine: No eating out: rarely or never during the past year weight has: remained stable what type of physical activity do you participate in: walking and other details: core exercises frequency: daily duration: 45-60 minutes/day yesika/lutheran: Jain seatbelt use: always do you feel safe at home: Yes 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 07/19/25 1218 marek HO> Date _ [facility]: Date CC: ~ Signed [facility]09-03-2025 Evaluation note* Diagnosis Onset Date Resolution Status Admit Date Missed acute July 18, 2025 8:26am acute July 18, 2025 8:26am Rh negative state in antepartum period acute July 18, 2025 8:26am Supervision of normal acute July 18, 2 025 8:26am Missed acute July 19, 2025 11:14am [facility] Work Phone: [phone]) 474-163009-03-2025 [facility] [address], [address] [place] [address] OFFICE VISIT Date of Service: 07/18/25 MR#: [id number] Acct: [id number] Name: GREGORY RANKIN Rep #: [id number] : 2000 Provider: MILLER Bradnt Age/Sex: 25/F Location: [facility] Status: Signed Intake Vital Signs 04/29/23 09:49 07/18/25 08:28 Height 5 ft 3 in 5 ft 3 in Weight: 158 lb 4 oz BMI 28.0 BP 108/68 Intake Visit Reasons: *EST* NOB LMP 7/, CHARU 02/21 Recreation Program Coordinator Required: No Is patient in pain?: No Allergies No Known Allergies Allergy (Verified 07/18/25 08:31) Medications ?Medication ?Instructions ?Recorded ?Confirmed ?Type vitamins no.163-iron tab PO DAILY 07/06/25 H istory bis-gly 20 mg-folate no.10 1 mg tablet (PNV Tabs 20-1) pyridoxine (vitamin B6) 100 mg 100 mg PO QDAY 07/06/25 History tablet Last Menstrual Period: 05/17/25 Zika: Zika virus screening: Negative [facility] Medical History heart deceleration Rh negative state in antepartum period Supervision of normal , antepartum Social History adopted: No household members: spouse and children housing: house number of children: 2 current occupational status: unemployed current occupation: [employer] current occupational exposures/hazards: No pets and animals: No history of recent travel: No sexually active: Yes Smoking Status: Never smoker alcohol intake: never substance use type: does not use well-balanced diet: daily or most days caffeine: No eating out: rarely or never during the past year weight has: remained stable what type of physical activity do you participate in: walking and other details: core exercises frequency: daily duration: 45-60 minutes/day yesika/lutheran: Jain seatbelt use: always do you feel safe at home: Yes additional social history: - Terrence - Essence santiago History 3 Elective abortions Hx Para 2 Spontaneous abortions Hx # Term Pregnancies Ectopic pregnancies Hx # Pregnancies Multiple births # of living children 2 Past Pregnancies Del. Date Name GA/Weeks Outcome Route Bth Weight Gen Labor Lgth Anesthesia Del Locatn Provider FOB 07/08/20 Leeann Aly 41 live - full term 8#0oz Female none [facility] Massiel Ocampo 03/15/23 Imani 38 live - full term 7#2oz Female no ne [facility] Miah Rodriguez Delivery Date: 07/08/20 Last Updated by: Sharee Barroso IOL, pitocin HPI *EST* NOB LMP 05/17, CHARU 02/21 Details: GREGORY RANKIN is a 25 year old who presents for New OB visit. No heart rate noted on US, and nocolor flow to fetus- measuring 8.[address] Becker in to rescan and discussion for D&C. OB Visit CHARU Calculator Estimated Delivery Date Method Current WG Current Estimate 02/21/26 LMP (Certain) 8w 6d Comments: HIV: Urine Culture: Sequential Screen: NIPT Screen: Estimated Due Date: 02/21/26 Expected Delivery Route/Plan Labor Preferences- CB/BF classes: [] labor support person: [] labor intervention preferences: [] pain management options preferred: [] cut cord/dad catch: [] : [] PP control planned: [] discussed possible routes of delivery and associated risks: [] special requests: [] Specific Issue/Plans Covid status: [] Flu vaccine: [] Tdap vaccine: [] Rhogam: [] LARC form signed: [] Problem list reviewed and updated with the most current plan of care details and appropriate ordersplaced. Relevant counseling for the gestational age provided. Continue routine care and follow up unless otherwise noted in visit notes/problem list details Initial Weight: 158 lb Date -?-?-?-?-?-?-?-?-?-?-?-?- EGA Weight BP Urine Prot -?-?-?-?-?-?-?-?-?-?-?-?- Glucose FHR FuHt Pres Dilation -?-?-?-?-?-?-?-?-?-?-?-?- Effaced St Visit Note 07/18/25 -?-?-?-?-?-?-?-?-?-?-?-?- 8w 6d 158 lb 4 oz (+4 oz) 108/68 -?-?-?-?-?-?-?-?-?-?-?-?- -?-?-?-?-?-?-?--?-?-?-?-?- KW- No FHT noted on US. JV in to rescan. D&C discussed. Menstrual History Last Menstrual Period: 05/17/25 Reported LMP: definite Normal amount/duration: Yes Frequency in days: 25-28 On hormonal BC at conception: No hCG+: 06/18/25 Antepartum Record Genetic Screening: Congenital Heart Defect: Other, Neural Tube Defect: Other, Hemoglobinopathy Or Carrier: Other, Cystic Fibrosis: Other, Chromosome Abnormality: Other, Leonardo-Sachs: Other, Hemophilia: Other, Intellectual Disability/Autism: Other, Recurrent Loss/Stillbirth: Other, Other Structural Defect: Other, Other Genetic Disease: Other and Maternal Metabolic Disorder: Other Infection History: Live with someone with TB or Exposed to TB: No, Patient or Partner has history of Genital Herpes: No, Rash or Viral illness since last mentrual period: No, Prior GBS-Infected child: No, History of STD: No, HIV Infection: No, History of Hepatitis: No, Recent travel outside of [place]: No, Concern for hepatitis exposure: No, Varicella immune: Yes (immune- virus) and Covid Vaccinated: No Medical History Medical History: Positive: D (Rh) Sensitized (O-) and Negative: Diabetes, Hypertension, Heart disease, Auto-immune disorder, Kidney disease/UTI, Neurologic/epilepsy, Psychiatric, Depression/ depression, Hepatitis/liver disease, Varicosities/phlebitis, Thyroid dysfunction, Trauma/domestic violence, History of blood transfusions, Pulmonary (e.g.,TB,Asthma), Seasonal allergies, Drug/latex allergies/reactions, Breast, A R Collections Rep surgery, Operations/hospitalizations, Anesthetic complications, History of abnormal pap, Uterine anomaly/mignon, Infertility, Anti-retroviral treatment, Relevant family history and Other ACOG First Trimester First Trimester: Desire for , Alcohol, Tobacco Cessation, Illicit/Recreational Drug/Substance Use, Intimate Partner Violence, Barriers to care, Unstable Housing, Communication Barriers, Environmental/Work Hazards, Anticipated Course of Care, Nurtrition and weight gain, Toxoplasmosis Precations, Use of Any medications, Sexual activity, Exercise, Dental Care, Sauna/Hot tub use, Seat Belt use, Childbirth classes/Hospital facilities, Travel, Indications for Ultrasound and Screening for Aneuploidy Second Trimester Second Trimester: Signs and Symptoms of Labor, Selecting a care provider, Reproductive Life Planning & Contreception, Care Planning and Intimate Partner Violence; Discussed Tobacco Cessation and Discussed Depression/Anxiety Third Trimester Third Trimester: Pain Management Plans, Labor support person(s), Immediate Larc, Circumcision preference, Movement Monitoring, Signs and Symptoms of Preeclampsia, Labor Signs, Cervical Ripening/Labor Induction Counseling, Postterm Counseling, Infant Feeding, [place] Education, Family Medical Leave or Disability Forms, Depression, Depression and Intimate Partner Violence; Discussed Trial of Labor after Counseling and Discussed Tobacco Cessation ROS Const Reports system reviewed and no additional complaints, except as documented, Denies fatigue, Denies headache(s) and Denies lethargy ENT Denies headache(s) Card Reports system reviewed and no additional complaints, except as documented Resp Reports system reviewed and no additional complaints, except as documented GI Reports system reviewed and no additional complaints, except as documented, Denies abdominal pain, Denies constipation, Denies cramping, Denies diarrhea and Denies dyspepsia Reports system reviewed and no additional complaints, except as documented, Denies abnormal vaginalbleeding, Denies difficulty voiding, Denies dyspareunia and Denies dysuria Musc Reports system reviewed and no additional complaints, except as documented Skin/Breast Reports system reviewed and no additional complaints, except as documented Neuro Yes system reviewed and no additional complaints, except as documented and No headache(s) Psych Reports system reviewed and no additional complaints, except as documented, Denies anhedonia and Denies anxiety Endo Reports system reviewed and no additional complaints, except as documented and Denies fatigue Exam Const General: cooperative, healthy appearing and comfortable Neck Neck: normal visual inspection and full ROM Chest Chest palpation & inspection: normal inspection of the chest Breast inspection: normal inspection of the breasts and normal inspection of the axillae Breast palpation: normal palpation of the breasts and normal palpation of the axillae Resp Effort & Inspection: normal respiratory effort and able to speak in complete sentences GI Inspection: normal to inspection Palpation: soft External Female Exam: normal external appearance and normal appearance of the urethra Urethra: normal appearance of the urethra Skin General: no rashes or lesions noted Neuro General: patient alert, patient awake and patient oriented x3 Extrem General: normal to inspection and full ROM Psych Appearance: grossly normal and well kempt Mental Status: mental status grossly normal Mood: congruent mood Affect: normal affect Speech and Movement: speech and movement normal Thought Process: normal Thought Content: normal Coding Level of Care Code Off vis,est,level 4 Diagnoses Missed O02.1 Rh negative state in antepartum period O26.899; Z67.91 Supervision of normal Z34.90 8 weeks gestation of Z3A.08 Weeks of gestation: 8 weeks Assessment and Plan Assessment and Plan (1) Missed : Status: Acute Comment: JV in to rescan. D&C planned. (2) Rh negative state in antepartum period: Status: Acute Comment: Rhogam @ 28 (3) Supervision of normal : Status: Acute Comment: , CHARU 02/21/26, Imani Peaec Terrence (4) : Status: Acute Qualifiers: Weeks of gestation: 8 weeks Qualified Code(s): Z3A.08 - 8 weeks gestation of Comment: discussed NIPT & Carrier testing-undecided Orders: Orders CBC W/Diff, Automated 07/06/25 Z34.90 - Encounter for supervision of normal , unspecified,unspecified trimester Type & Screen 07/06/25 Z34.90 - Encounter for supervision of normal , unspecified, unspecified trimester Rubella IgG 07/06/25 Z34.90 - Encounter for supervision of normal , unspecified, unspecified trimester Hepatitis C Antibody 07/06/25 Z34.90 - Encounter for supervision of normal , unspecified, unspecified trimester Hepatitis B Surface Antigen 07/06/25 Z34.90 - Encounter for supervision of normal , unspecified, unspecified trimester Culture, Urine 07/06/25 Z34.90 - Encounter for supervision of normal , unspecified, unspecified trimester Syphilis Antibodies 07/06/25 Z34.90 - Encounter for supervision of normal , unspecified, unspecified trimester Chlamydia/GC MAMIE aptima 07/06/25 Z34.90 - Encounter for supervision of normal , unspecified, unspecified trimester HIV 07/06/25 Z34.90 - Encounter for supervision of normal , unspecified, unspecified trimester 07/18/25 0915 s MILLER> Date Justice Brandt CNM Cosigner Signature: Date (if applicable) CC: ~ [facility]06-15-2023 NotePap Smear Specimen AdequacyJune 2022 11:59pmComment.Satisfactory for evaluation. Endocervical and/or squamous metaplasticcells (endocervical component)are present.[facility] INTER[facility]ACED A#[id number] Memorial HospitalComment on above:Satisfactory for evaluation. Endocervical and/or squamous metaplasticcells (endocervical component)are present.Consult note Author Gavin Rene [facility] Note Date/Time July 19, 2025 2:45pm [facility] Medical Records Department [address] [place] [address] [place] [address] Anesthesia Postop Eval I 07/19/251347 MR#: [id number] Acct: [id number] Name: GREGORY RANKIN Kelly Rep #:[id number] : 2000 25 From: Gavin RAUSCH PCP: Care Physician,No Primary Status :[facility] Y Race: C Location: [place] [address] Anesthesia: Postop Eval I Current Vital Signs Temperature: 97 F Pulse Rate: 73 Blood Pressure: 97/51 Respiratory Rate: 16 Pulse Ox: 98 Oxygen Delivery Method: Room Air Assessment Airway patent: Yes Spontaneous unlabored respirations: Yes Mental status: Awake and Calm nausea: No Vomiting: No Anesthesia Complication: No Fluid Hydration Crystalloid volume administer (ml): 500 Total IV fluid infused: 500 Progress Note Anesthesia document: Postop Eval 1 completed: Yes 07/19/251347 <Electronically signed by Gavin Rene MEASUREMENT PSYCHOLOGIST> Date _ Gavin Rene MEASUREMENT PSYCHOLOGIST Cosigner Signature: Date CC: ~ Signed [facility] Work Phone: Discharge summary Author Latasha Rodriguez [facility] Note Date/Time July 19, 2025 1:24pm [facility] Medical Records Department [address] [place] [address] Instructions for Home/Discharge Instructions 07/19/25 1322 MR#: [id number] Acct: [id number] Name: GREGORY RANKIN Rep #:[id number] : 2000 From: Latasha Becker DO PCP: Care Physician,No Primary Status :REG SDC Discharge Instructions DC O2, CPAP, BIPAP needs Home O2 Discharge instructions: No Dressing / Incision Discharge Activity: Return to Normal Activity, May Shower and May Take a Tub Bath (after 1 week) May resume sexual activity in: 1-2 weeks Weight Bearing Status: Weight bearing as tolerated Lifting Restrictions: none Dressing / Incision Call your doctor if you observe: Fever of 101 or Higher, Using more than 1 pad per hour, Shortness of breath and Uncontrolled pain Follow Up Care Please Follow Up With: Latasha Becker DO When: Call [phone] to schedule appointment. Test Results: Test results from this visit will be discussed in further detail at your follow- up appointment, if applicable. Discharge Plan Admission Primary Reason for Your Visit: dilation and curettage Attending Provider: Latasha Becker Primary Care Provider: Jacy Chino Primary Instructions Print Language: Cuban Discharge Orders/Prescriptions Prescriptions: New ibuprofen 800 mg tablet 800 mg PO Q8H PRN (Reason: pain) Qty: 20 0RF Continued PNV Tabs 20-1 20 mg iron- 1 mg tablet 1 tab PO DAILY pyridoxine (vitamin B6) 100 mg tablet 100 mg PO QDAY cholecalciferol (vitamin D3) [Vitamin D3] 25 mcg (1,000 unit) capsule 25 mcg PO DAILY Other Ambulatory Orders: CBC-Complete Blood Cnt No Diff (Routine) Timeframe: 20250718 Facility: [facility] - Location: Laboratory Ordered By: Dr. Latasha Becker Type & Screen - PAT ONLY (Routine) Timeframe: 20250719 Facility: [facility] - Location: Laboratory Ordered By: Dr. Latasha Becker Referrals / Follow Up: Care Physician,No Primary [Primary Care Provider] - Disposition Disposition (needs filled in before D/C Order can be placed): Home, Self Care 07/19/25 1324<Electronically signed by Latasha Becker DO>Latasha Becker DO CC: No Primary Care Physician ~ Signed [facility] Work Phone: evaluation note* Diagnosis Onset Date Resolution Status acute Supervision of normal , antepartum acute [facility] Work Phone: evaluation note* Diagnosis Onset Date Resolution Status acute Supervision of normal , antepartum acute acute Supervision of normal , antepartum acute [facility] Work Phone: evaluation note* Diagnosis Onset Date Resolution Status acute Supervision of normal , antepartum acute acute Rh negative state in antepartum period acute Supervision of normal , antepartum acute acute Rh negative state in antepartum period acute Supervision of normal , antepartum acute acute Rh negative state in antepartum period acute Supervision of normal , antepartum acute [facility] Work Phone: evaluation note* Diagnosis Onset Date Resolution Status acute Rh negative state in antepartum period acute Supervision of normal , antepartum acute acute Rh negative state in antepartum period acute Supervision of normal , antepartum acute acute Rh negative state in antepartum period acute Supervision of normal , antepartum acute acute Rh negative state in antepartum period acute Supervision of normal , antepartum acute acute Rh negative state in antepartum period acute Supervision of normal , antepartum acute acute Rh negative state in antepartum period acute Supervision of normal , antepartum acute acute Rh negative state in antepartum period acute Supervision of normal , antepartum acute [facility] Work Phone: evaluation note* Diagnosis Onset Date Resolution Status normal course acu te [facility] Work Phone: evaluation note* Diagnosis Onset Date Resolution Status Admit Date Missed acute July 18, 2025 8:26am acute July 18, 2025 8:26am Rh negative state in antepartum period acute July 18, 2025 8:26am Supervision of normal acute July 18, 8:26am [facility] Work Phone: Progress note Author Marissa Brandt [facility] Note Date/Time July 18, 2025 9:15am [facility] [address], [address] [place] [address] OFFICE VISIT Date of Service: 07/18/25 MR#: [id number] Acct: [id number] Name: GREGORY RANKIN Rep #: [id number] : 2000 Provider: MILLER Brandt Age/Sex: 25/F Location: [facility] Status: Signed Intake Vital Signs 04/29/23 09:49 07/18/25 08:28 Height 5 ft 3 in 5 ft 3 in Weight: 158 lb 4 oz BMI 28.0 BP 108/68 Intake Visit Reasons: *EST* NOB LMP 05/17, CHARU 02/21 Recreation Program Coordinator Required: No Is patient in pain?: No Allergies No Known Allergies Allergy (Verified 07/18/25 08:31) Medications ?Medication ?Instructions ?Recorded ?Confirmed ?Type vitamins no.163-iron tab PO DAILY 07/06/25 H istory bis-gly 20 mg-folate no.10 1 mg tablet (PNV Tabs 20-1) pyridoxine (vitamin B6) 100 mg 100 mg PO QDAY 07/06/25 History tablet Last Menstrual Period: 05/17/25 Zika: Zika virus screening: Negative [facility] Medical History heart deceleration Rh negative state in antepartum period Supervision of normal , antepartum Social History adopted: No household members: spouse and children housing: house number of children: 2 current occupational status: unemployed current occupation: [employer] current occupational exposures/hazards: No pets and animals: No history of recent travel: No sexually active: Yes Smoking Status: Never smoker alcohol intake: never substance use type: does not use well-balanced diet: daily or most days caffeine: No eating out: rarely or never during the past year weight has: remained stable what type of physical activity do you participate in: walking and other details: core exercises frequency: daily duration: 45-60 minutes/day yesika/lutheran: Jain seatbelt use: always do you feel safe at home: Yes additional social history: - Terrence santiago History 3 Elective abortions Hx Para 2 Spontaneous abortions Hx # Term Pregnancies Ectopic pregnancies Hx # Pregnancies Multiple births # of living children 2 Past Pregnancies Del. Date Name GA/Weeks Outcome Route Bth Weight Gen Labor Lgth Anesthesia Del Locatn Provider FOB 07/08/20 Leeann Aly 41 live - full term 8#0oz Female none [facility] Massiel Ocampo 03/15/23 Imani 38 live - full term 7#2oz Female no ne [facility] Miah Rodriguez Delivery Date: 07/08/20 Last Updated by: Sharee Barroso IOL, pitocin HPI *EST* NOB LMP 05/17, CHARU 02/21 Details: GREGORY RANKIN is a 25 year old who presents for New OB visit. No heart rate noted on US, and no color flow to fetus- measuring 8.[address] Becker in to rescan and discussion for D&C. OB Visit CHARU Calculator Estimated Delivery Date Method Current WG Current Estimate 02/21/26 LMP (Certain) 8w 6d Comments: HIV: Urine Culture: Sequential Screen: NIPT Screen: Estimated Due Date: 02/21/26 Expected Delivery Route/Plan Labor Preferences- CB/BF classes: [] labor support person: [] labor intervention preferences: [] pain management options preferred: [] cut cord/dad catch: [] : [] PP control planned: [] discussed possible routes of delivery and associated risks: [] special requests: [] Specific Issue/Plans Covid status: [] Flu vaccine: [] Tdap vaccine: [] Rhogam: [] LARC form signed: [] Problem list reviewed and updated with the most current plan of care details and appropriate orders placed. Relevant counseling for the gestational age provided. Continue routine care and follow up unless otherwise noted in visit notes/problem list details Initial Weight: 158 lb Date -?-?-?-?-?-?-?-?-?-?-?-?- EGA Weight BP Urine Prot -?-?-?-?-?-?-?-?-?-?-?-?- Glucose FHR FuHt Pres Dilation -?-?-?-?-?-?-?-?-?-?-?-?- Effaced St Visit Note 07/18/25 -?-?-?-?-?-?-?-?-?-?-?-?- 8w 6d 158 lb 4 oz (+4 oz) 108/68 -?-?-?-?-?-?-?-?-?-?-?-?- -?-?-?-?-?-?-?--?-?-?-?-?- KW- No FHT noted on US. JV in to rescan. D&C discussed. Menstrual History Last Menstrual Period: 05/17/25 Reported LMP: definite Normal amount/duration: Yes Frequency in days: 25-28 On hormonal BC at conception: No hCG+: 06/18/25 Antepartum Record Genetic Screening: Congenital Heart Defect: Other, Neural Tube Defect: Other, Hemoglobinopathy Or Carrier: Other, Cystic Fibrosis: Other, Chromosome Abnormality: Other, Leonardo-Sachs: Other, Hemophilia: Other, Intellectual Disability/Autism: Other, Recurrent Loss/Stillbirth: Other, Other Structural Defect: Other, Other Genetic Disease: Other and Maternal Metabolic Disorder: Other Infection History: Live with someone with TB or Exposed to TB: No, Patient or Partner has history of Genital Herpes: No, Rash or Viral illness since last mentrual period: No, Prior GBS-Infected child: No, History of STD: No, HIV Infection: No, History of Hepatitis: No, Recent travel outside of [place]: No, Concern for hepatitis exposure: No, Varicella immune: Yes (immune- virus) and Covid Vaccinated: No Medical History Medical History: Positive: D (Rh) Sensitized (O-) and Negative: Diabetes, Hypertension, Heart disease, Auto-immune disorder, Kidney disease/UTI, Neurologic/epilepsy, Psychiatric, Depression/ depression, Hepatitis/liver disease, Varicosities/phlebitis, Thyroid dysfunction, Trauma/domestic violence, History of blood transfusions, Pulmonary (e.g.,TB,Asthma), Seasonal allergies, Drug/latex allergies/reactions, Breast, A R Collections Rep surgery, Operations/hospitalizations, Anesthetic complications, History of abnormal pap, Uterine anomaly/mignon, Infertility, Anti-retroviral treatment, Relevant family history and Other ACOG First Trimester First Trimester: Desire for , Alcohol, Tobacco Cessation, Illicit/Recreational Drug/Substance Use, Intimate Partner Violence, Barriers to care, Unstable Housing, Communication Barriers, Environmental/Work Hazards, Anticipated Course of Care, Nurtrition and weight gain, Toxoplasmosis Precations, Use of Any medications, Sexual activity, Exercise, Dental Care, Sauna/Hot tub use, Seat Belt use, Childbirth classes/Hospital facilities, Travel, Indications for Ultrasound and Screening for Aneuploidy Second Trimester Second Trimester: Signs and Symptoms of Labor, Selecting a care provider, Reproductive Life Planning & Contreception, Care Planning and Intimate Partner Violence; Discussed Tobacco Cessation and Discussed Depression/Anxiety Third Trimester Third Trimester: Pain Management Plans, Labor support person(s), Immediate Larc, Circumcision preference, Movement Monitoring, Signs and Symptoms of Preeclampsia, Labor Signs, Cervical Ripening/Labor Induction Counseling, Postterm Counseling, Feeding, Education, Family Medical Leave or Disability Forms, Depression, Depression and Intimate Partner Violence; Discussed Trial of Labor after Counseling and Discussed Tobacco Cessation ROS Const Reports system reviewed and no additional complaints, except as documented, Denies fatigue, Denies headache(s) and Denies lethargy ENT Denies headache(s) Card Reports system reviewed and no additional complaints, except as documented Resp Reports system reviewed and no additional complaints, except as documented GI Reports system reviewed and no additional complaints, except as documented, Denies abdominal pain, Denies constipation, Denies cramping, Denies diarrhea and Denies dyspepsia Reports system reviewed and no additional complaints, except as documented, Denies abnormal vaginal bleeding, Denies difficulty voiding, Denies dyspareunia and Denies dysuria Musc Reports system reviewed and no additional complaints, except as documented Skin/Breast Reports system reviewed and no additional complaints, except as documented Neuro Yes system reviewed and no additional complaints, except as documented and No headache(s) Psych Reports system reviewed and no additional complaints, except as documented, Denies anhedonia and Denies anxiety Endo Reports system reviewed and no additional complaints, except as documented and Denies fatigue Exam Const General: cooperative, healthy appearing and comfortable Neck Neck: normal visual inspection and full ROM Chest Chest palpation & inspection: normal inspection of the chest Breast inspection: normal inspection of the breasts and normal inspection of the axillae Breast palpation: normal palpation of the breasts and normal palpation of the axillae Resp Effort & Inspection: normal respiratory effort and able to speak in complete sentences GI Inspection: normal to inspection Palpation: soft External Female Exam: normal external appearance and normal appearance of the urethra Urethra: normal appearance of the urethra Skin General: no rashes or lesions noted Neuro General: patient alert, patient awake and patient oriented x3 Extrem General: normal to inspection and full ROM Psych Appearance: grossly normal and well kempt Mental Status: mental status grossly normal Mood: congruent mood Affect: normal affect Speech and Movement: speech and movement normal Thought Process: normal Thought Content: normal Coding Level of Care Code Off vis,est,level 4 Diagnoses Missed O02.1 Rh negative state in antepartum period O26.899; Z67.91 Supervision of normal Z34.90 8 weeks gestation of Z3A.08 Weeks of gestation: 8 weeks Assessment and Plan Assessment and Plan (1) Missed : Status: Acute Comment: JV in to rescan. D&C planned. (2) Rh negative state in antepartum period: Status: Acute Comment: Rhogam @ 28 (3) Supervision of normal : Status: Acute Comment: , CHARU 02/21/26, Imani Peace Terrence (4) : Status: Acute Qualifiers: Weeks of gestation: 8 weeks Qualified Code(s): Z3A.08 - 8 weeks gestation of Comment: discussed NIPT & Carrier testing-undecided Orders: Orders CBC W/Diff, Automated 07/06/25 Z34.90 - Encounter for supervision of normal , unspecified, unspecified trimester Type & Screen 07/06/25 Z34.90 - Encounter for supervision of normal , unspecified, unspecified trimester Rubella IgG 07/06/25 Z34.90 - Encounter for supervision of normal , unspecified, unspecified trimester Hepatitis C Antibody 07/06/25 Z34.90 - Encounter for supervision of normal , unspecified, unspecified trimester Hepatitis B Surface Antigen 07/06/25 Z34.90 - Encounter for supervision of normal , unspecified, unspecified trimester Culture, Urine 07/06/25 Z34.90 - Encounter for supervision of normal , unspecified, unspecified trimester Syphilis Antibodies 07/06/25 Z34.90 - Encounter for supervision of normal , unspecified, unspecified trimester Chlamydia/GC MAMIE aptima 07/06/25 Z34.90 - Encounter for supervision of normal , unspecified, unspecified trimester HIV 07/06/25 Z34.90 - Encounter for supervision of normal , unspecified, unspecified trimester 07/18/25 0915 <Electronically signed by Marissa shepherd CNM> Date _ Marissa Brandt CNM Cosigner Signature: Date (if applicable) CC: ~ [facility] Work Phone: Reason for referral (narrative)No reason for referral information availableC[facility] Work Phone: Chief Complaint and Reason for Visit Chief Complaint NOB LMP 8/ Reason for Visit Supervision of normal , antepartum Chief Complaint NOB LMP 8/ 14 WK OB, pt req for Wednesday ANATOMY SCREENING Reason for Visit Supervision of normal , antepartum Supervision of normal , antepartum Chief Complaint 14 WK OB, pt req for Wednesday ANATOMY SCREENING 20WK OB OB VISIT 28 WEEK VISIT/OB Reason for Visit Supervision of normal , antepartum Rh negative state in antepartum period Supervision of normal , antepartum Rh negative state in antepartum period Supervision of normal , antepartum Rh negative state in antepartum period Supervision of normal , antepartum Chief Complaint ANATOMY SCREENING 20WK OB OB VISIT 28 WEEK VISIT/OB 30 WEEK F/U 2 WK F/U 35 WK OB CHECK OB CHECK UP Reason for Visit Rh negative state in antepartum period Supervision of normal , antepartum Rh negative state in antepartum period Supervision of normal , antepartum Rh negative state in antepartum period Supervision of normal , antepartum Rh negative state in antepartum period Supervision of normal , antepartum Rh negative state in antepartum period Supervision of normal , antepartum Rh negative state in antepartum period Supervision of normal , antepartum Rh negative state in antepartum period Supervision of normal , antepartum Chief Complaint 28 WEEK VISIT/OB 30 WEEK F/U 2 WK F/U 35 WK OB CHECK OB CHECK UP OB CHECK NST NST VAG LABOR VAG 6 wk pp, req MtKristen with LC Reason for Visit normal co urse Chief Complaint Admit Date *EST* NOB LMP 7/3, CHARU 4/9 July 8:26am Reason for Visit Admit Date Missed July 18, 2025 8:26am July 18, 2025 8:26am Rh negative state in antepartum period S [id number] 8:26am Supervision of normal Septembe r 2024 8:26am Reason for Visit Admit Date Missed July 18, 2025 8:26am July 18, 2025 8:26am Rh negative state in antepartum period S [id number] 8:26am Supervision of normal Septembe r 2024 8:26am Missed July 19, 2025 11:14am Advance Directives No Advanced Directives Records Found Advance Directive Response Recorded Date/ Time Living Will No July 08 0 7:16am Power of Development Technician No July 08 020 7:16am Advance Directive Response Recorded Date/ Time Living Will No July 08 0 6:16am Power of Development Technician No July 08 020 6:16am Advance Directive Response Recorded Date/ Time Living Will No March 18, 2023 11 :56am Power of Development Technician No March 18, 2023 11:56am Advance Directive Response Recorded Date/ Time Do you have a Healthcare Power of Development Technician? Yes July 18, 2025 3:30pm Summary Purpose Family History No Family History Records Found Additional Source Comments Goals (unrecognized section and content) Goals may be documented in a n alternate sectionGoals may be documented in an alternate sectionGoals may be documented in an alternate sectionGoals may be documented in an alternate sectionGoals may be documented in an alternate section Care Teams (unrecognized sec tion and content) Team Status: Active Member Role Status Dates No Primary Care Physician Primary Care Provider Active Team Status: Inactive Member Role Status Dates No Primary Care Physician Primary Care Provider, Refer ring Provider Active Therese Saleh CNM Attending Provider Active Team Status: Inactive Member Role Status Dates No Primary Care Physician Primary Care Provider, Refer ring Provider Active Stacy Burleson FLOOR HELPER, FLOOR HELPER-C Attending Provider Active Team Status: Inactive Member Role Status Dates No Primary Care Physician Primary Care Provider Active Therese Saleh CNM Attending Provider Active Dr. Latasha Becker DO Referring Provider Activ e Team Status: Inactive Member Role Status Dates No Primary Care Physician Primary Care Provider Active Therese Saleh CNM Attending Provider, Referring Pr ovider Active Team Status: Active Member Role Status Dates No Primary Care Physician Primary Care Provider Active Dr. Nicol Liu MD Referring Provider, Other Provider Active Therese Saleh CNM Attending Provider Active Team Status: Active Member Role Status Dates No Primary Care Physician Primary Care Provider Active Dr. Latasha Becker DO Admit Prov ider, Attending Provider, Referring Provider, Other Provider Active Team Status: Active Member Role Status Dates No Primary Care Physician Primary Care Provider Active Dr. Latasha Becker DO Admit Prov ider, Referring Provider, Other Provider Active Marissa Brandt CNM Attending Provider Active Team Status: Inactive Member Role Status Dates No Primary Care Physician Primary Care Provider Active Dr. Nicol Liu MD Attending Provider, Referr ing Provider Active Team Status: Inactive Member Role Status Dates No Primary Care Physician Primary Care Provider Active Dr. Latasha Becker DO Admit Prov ider, Attending Provider, Referring Provider Active Team Status: Inactive Member Role Status Dates No Primary Care Physician Primary Care Provider Active Therese Saleh CNM Attending Provider Active Team Status: Active Member Role/Relationship Status Dates No Primary Care Physician Primary Care Provider Active Team Status: Inactive Member Role/Relationship Status Dates No Primary Care Physician Primary Care Provider Active Start: July 18, 2025 End: July 18, 2025 No Primary Care Physician Referring Provider Active Start: July 18, 2025 End: July 18, 2025 Marissa Brandt CNM Attending Provider Active S tart: July 18, 2025 End: July 18, 2025 Team Status: Inactive Member Role/Relationship Status Dates No Primary Care Physician Primary Care Provider Active Start: July 19, 2025 End: July 19, 2025 Dr. Latasha Becker DO Attending Provider Activ e Start: July 19, 2025 End: July 19, 2025 Dr. Latasha Becker DO Referring Provider Activ e Start: July 19, 2025 End: July 19, 2025 Team Status: Active Member Role/Relationship Status Dates No Primary Care Physician Primary Care Provider Active Start: July 19, 2025 Dr. Latasha Becker DO Attending Provider Activ e Start: July 19, 2025 Dr. Latasha Becker DO Referring Provider Activ e Start: July 19, 2025 Dr. Latasha Becker DO Other Provider Active Start: July 19, 2025 INFORMATION SOURCE (unrecogn ized section and content) DATE CREATED AUTHOR 07/19/2025 [facility] FOR RECORDS PERTAINING TO PATIENTS WHO ARE OR HAVE BEEN ENROLLED IN A CHEMICAL DEPENDENCY/SUBSTANCEABUSE PROGRAM, SOME INFORMATION MAY BE OMITTED. This clinical summary was aggregated from multiple sources. Caution should be exercised in using it in the provision of clinical care. This summary normalizes information from multiple sources, and as a consequence, information in this document may materially change the coding, format and clinical context of patient data. In addition, data may be omitted in some cases. CLINICAL DECISIONS SHOULD BE BASED ON THE PRIMARY CLINICAL RECORDS. [employer] provides no warranty or guarantee of the accuracy or completeness of information in this document.
== END 2025-07-19 14:45 | disposition home or self-care (01) ==
LOC: SDC 11:16 → AC 11:17
PROVIDERS: Referring Provider Obstetrics & Gynecology; Visit Provider Obstetrics & Gynecology
PROC: (CPT 59820; principal; 2025-07-19 12:45)
DX: O02.1 Missed abortion (principal)
CPT/HCPCS: 59820; 01965; 88305; J2405

== ENCOUNTER → 2025-08-28 | Outpatient (CLI) | payer SELFPAY, OTHER ==
--- NOTE | 2025-08-28 16:56 | US_ITS ---
PROCEDURE: TRANSVAGINAL NON- 08/28/2025 REASON FOR EXAM: RO RETAINED PRODUCTS POST D C TECHNIQUE: Procedure Code: USTVAG Modality: US Procedure: TRANSVAGINAL NON- FINDINGS: The uterus is retroverted and measures 7.4 x 5.8 x 4.6 cm. Endometrial thickness is 11 mm. Within the endometrial canal there is a focal echogenic and vascular area measuring approximately 1.4 x 1.4 x 1.4 cm with color Doppler flow, consistent with retained products of conception. The myometrium is homogeneous without focal fibroid. Cervix appears normal. No intrauterine device is present. The right ovary measures 3.8 x 2.9 x 2.1 cm with normal blood flow. Right ovarian cysts measure up to 2.2 x 1.9 x 1.5 cm. No right adnexal mass or dilated tube identified. The left ovary measures 3.1 x 2.6 x 1.4 cm with normal blood flow. No left adnexal mass or cyst identified. Prominent left adnexal vessels are noted, possibly related to physiologic congestion. No significant free fluid is seen in the cul-de-sac. The urinary bladder is unremarkable. US/Transvaginal Non- IMPRESSION: Focal echogenic and vascular tissue within the endometrial canal measuring 1.4 x 1.4 x 1.4 cm, most consistent with retained products of conception. Normal appearance of the ovaries and adnexa. No free fluid in the pelvis. Reading Location: [id number]
== END | disposition home or self-care (01) ==
PROVIDERS: Referring Provider Obstetrics & Gynecology; Visit Provider Obstetrics & Gynecology
DX: O02.1 Missed abortion (principal)
CPT/HCPCS: 76830

== ENCOUNTER 2025-08-30 11:34 | Day surgery (SDC) | payer SELFPAY, OTHER ==
[2025-08-30] VITALS (9 sets, daily range): BP systolic 97–105; BP diastolic 55–63; PULSE 58–81; RESP 12–16; TEMP 36.2–36.8; O2SAT 97–100; BMI 27.3
--- NOTE | 2025-08-30 12:25 | HP.PCM.OB_ITS ---
HPI - General HPI Narrative GREGORY RANKIN, is a 25 F who presents to [facility] for D&C due to retained products of conception seen on ultrasound after a d&C last month. [facility] Medical History (Updated 08/29/25 @ 14:10 by Danielle Harwdick LPN) Non-smoker heart deceleration Rh negative state in antepartum period Supervision of normal , antepartum Home Medications Medication Instructions Recorded Last Taken Type vitamins no.163-iron 1 tab PO DAILY 07/06/25 08/29/25 History bis-gly 20 mg-folate no.10 1 mg tablet (PNV Tabs 20-1) Allergy/AdvReac Type Severity Reaction Status Date / Time No Known Allergies Allergy Verified 08/30/25 11:59 Surgical History (Updated 08/30/25 @ 12:09 by Roseanna Alcantara) H/O dilation and curettage Social History adopted: No household members: spouse and children housing: house number of children: 2 current occupational status: unemployed current occupation: [employer] current occupational exposures/hazards: No pets and animals: No history of recent travel: No sexually active: Yes Smoking Status: Never smoker alcohol intake: never substance use type: does not use well-balanced diet: daily or most days caffeine: No eating out: rarely or never during the past year weight has: remained stable what type of physical activity do you participate in: walking and other details: core exercises frequency: daily duration: 45-60 minutes/day yesika/episcopal: Scientologist seatbelt use: always do you feel safe at home: Yes additional social history: - Terrence - [employer] [facility] History 3 Elective abortions Hx Para 2 Spontaneous abortions 1 Hx # Term Pregnancies Ectopic pregnancies Hx # Pregnancies Multiple births # of living children 2 Past Pregnancies Del. Date Name GA/Weeks Outcome Route Bth Weight Infant Gen Labor Lgth Anesthesia Del Locatn Provider FOB 07/08/20 Leeann Aly 41 live - full term 8#0oz Female none [facility] Nirmal Ocampo 03/15/23 Imani 36 live - full term 7#2oz Female no ne [facility] Vande Velde Delivery Date: 07/08/20 Last Updated by: Sharee Barroso IOL, pitocin ROS Cardiovascular Cardiovascular: Denies chest pain or dyspnea Respiratory/Chest Respiratory/Chest: Denies chest congestion or cough Gastrointestinal Gastrointestinal: Denies abdominal pain or anorexia Genitourinary Genitourinary: Denies burning urination or difficulty urinating Musculoskeletal Musculoskeletal: Denies back pain or difficulty walking Psychiatric Psychiatric: Denies anxiety or depression Vital Signs Vital Signs Vital Signs: 08/30/25 12:09 08/30/25 12:10 Temperature 98.2 F Temperature Source Temporal Pulse Rate 77 Respiratory Rate 16 Respiratory Pattern Normal Blood Pressure 100/60 Blood Pressure Mean 73 Blood Pressure Source Monitor Blood Pressure Position Supine Blood Pressure Location Right Arm Pulse Ox 100 Oxygen Delivery Method Room Air Weight Weight: 154 lb Body Mass Index (BMI) 27.3 Physical Exam Const alert, oriented x3 and no apparent distress General Appearance: cooperative and comfortable; Negative for in distress HEENT normocephalic Neck full ROM Resp normal respiratory effort GI soft to palpation, non-tender, non-distended and no masses Back/Spine no CVA tenderness Extremity normal to inspection Skin no rashes or lesions noted Psych affect normal Labs Labs Labs: Blood Type O NEGATIVE Antibody Screen NEGATIVE Hct, (37-47) 42.4 % Hgb, (12.0-15.0) 14.2 g/dL Obstetrics Ultrasound Syphilis Total Ab Non-reactive Rubella IgG Antibody, (Nonreactive) Non-Reactive Hep Bs Antigen, (Nonreactive) Non-Reactive Hepatitis C Antibody, (Nonreactive) Non-Reactive Chlamydia DNA (MAMIE), (Negative) Negative N.gonorrhoeae DNA (MAMIE), (Negative) Negative HIV 1&2 Antibody, (Nonreactive) Non-Reactive Glucose 1 Hr 50 gm, (70-140) 130 mg/dL Rhogam given: No Miscellaneous Test Assessment & Plan (1) Retained products of conception after miscarriage: PLAN: After discussing the patient's diagnosis and treatment plan options, p atient wishes to proceed with surgical management. I have discussed with the patient the risks, benefits, and alternatives of the procedure which include but are not limited to risks of anesthesia, bleeding, infection, possible damage to bowel, bladder, or surrounding vasculature which could lead to additional surgery to evaluate any complications. Patient agrees to procedure and wishes to proceed. plan for repeat dilation and curettage to remove retained tissue or blood.
[2025-08-30] MEDS: Lactated Ringers 1,000 ML 15 ML IV (12:26)
[2025-08-30 12:35] LABS: Hematocrit 42.4 % (37-47); Hemoglobin 14.2 g/dL (12.0-15.0); Mean Corp Hgb Conc 33.5 g/dL (32-36); Mean Corpuscular Volume 87.6 fL (81-99); Mean Platelet Vol. 9.3 fl (6.2-12.0); Platelet Count 185 K/mm3 (150-450); RBC Distribution Width CV 12.8 % (11.6-14.6); RBC Distribution Width SD 41.1 fl (35.1-43.9); Red Blood Count 4.84 M/mm3 (4.2-5.4); White Blood Count 6.7 K/mm3 (4.4-11.0)
--- NOTE | 2025-08-30 12:41 | PCM.DC ---
Discharge Instructions DC O2, CPAP, BIPAP needs Home O2 Discharge instructions: No Dressing / Incision Discharge Activity: Return to Normal Activity, May Shower and May Take a Tub Bath (after 1 week) May resume sexual activity in: 1-2 weeks Weight Bearing Status: Weight bearing as tolerated Lifting Restrictions: none Dressing / Incision Call your doctor if you observe: Fever of 101 or Higher, Using more than 1 pad per hour, Shortness of breath and Uncontrolled pain Follow Up Care Please Follow Up With: Latasha Becker DO When: Call [phone] to schedule appointment. Test Results: Test results from this visit will be discussed in further detail at your follow-up appointment, if applicable. Discharge Plan Admission Attending Provider: Latasha Becker Primary Care Provider: Care Physician,No Primary Instructions Print Language: Sri Lankan Discharge Orders/Prescriptions Prescriptions: No Action PNV Tabs 20-1 20 mg iron- 1 mg tablet 1 tab PO DAILY Referrals / Follow Up: Care Physician,No Primary [Primary Care Provider, Medical] Disposition Disposition (needs filled in before D/C Order can be placed): Home, Self Care
--- NOTE | 2025-08-30 12:45 | PRE.ANES_ITS ---
ASA Classification* ASA Classification ASA Classification: 2 Assessment & Plan Anesthesia* Anesthesia Assessment Anesthesia Assessment: Discussed sedation and/or anesthesia options, risks, benefits, and alternatives with patient/parents/legal guardian/POA. Questions invited. The patient/parents/legal guardian/POA seems to understand and agrees to proceed with anesthesia plan. Reviewed the physical assessment, medical history, allergy history and patient home medications list prior to surgery/procedure/anesthetic and documented any changes. Performed airway and anesthesia risk assessments. Anesthesia Type Anesthesia Type: General and MAC History Source History Obtained from:: Patient and Chart Anesthesia Focused Assessment* Temperature: 98.2 F Pulse Rate: 77 Blood Pressure: 100/60 Respiratory Rate: 16 Pulse Ox: 100 Oxygen Delivery Method: Room Air Airway Assessment Mouth opens: >3 cm Mallampati Score: II Teeth Condition: Intact Neck Range of motion (ROM): Full ROM Labs Anesthesia Preop lab: CBC WBC, (4.4-11.0) 6.7 K/mm3 Today, 12:20 RBC, (4.2-5.4) 4.84 M/mm3 Today, 12:20 Hgb, (12.0-15.0) 14.2 g/dL Today, 12:20 Hct, (37-47) 42.4 % Today, 12:20 Plt Count, (150-450) 185 K/mm3 Today, 12:20 CHEMISTRY TSH, (0.358-3.74) 0.97 uIU/mL 12/15/19, 15:02 COAG Pre-Assessment Diagnosis/Proposed Procedure Planned Operative Procedure(s): (N/A) Dilation and Curettage, Suction Anesthesia History Anesthesia History - residential interior designer: Anesthesia History - residential interior designer Hx Hospitalization No 08/30/25 12:03 Any Problems With Anesthesia No 08/30/25 12:03 Cholinesterase deficiency No 08/30/25 12:03 You/Your Family Experience No 08/30/25 12:03 fever (hyperthermia) with Relationship Recent Exposure to Contagious No 08/30/25 12:09 Disease Does patient have nerve No 08/30/25 12:03 stimulator Patient instructed to have device shut off --Does patient have Pacemaker No 08/30/25 12:10 or ICD? When Was Last Pacemaker Check QUESTION #4 FULL TEXT: You/Your Family Experience fever (hyperthermia) with Anesthesia Last Oral Intake Last Oral intake: Last Oral Intake NPO since 07:00 08/30/25 12:10 Meds taken in AM with sips of No 08/30/25 12:10 water? Meds patient instructed to take am of surgery PONV PONV - residential interior designer: PONV - residential interior designer Female Yes 08/30/25 12:03 HX of Motion Sickness No 08/30/25 12:03 HX of N/V After Surgery No 08/30/25 12:03 Non-Smoker Yes 08/30/25 12:03 Duration of Surgery greater No 08/30/25 12:03 than 60 minutes Number of Risk Factors 2 08/30/25 12:03 PONV Score Moderate Risk 08/30/25 12:03 Height & Weight Height & Weight: Anesthesia: Height & Weight Height 5 ft 3 in 08/30/25 12:10 Weight: 69.853 kg 08/30/25 12:10 Body Mass Index (BMI) 27.3 08/30/25 12:10 Respiratory Assessment Respiratory Assessment - residential interior designer: Respiratory Tract Infection Hx - residential interior designer Hx Respiratory Tract Infection No 08/30/25 12:03 STOP Sleep Apnea STOP Sleep Apnea - residential interior designer: STOP Sleep Apnea - residential interior designer Hx Hypertension No 08/30/25 12:03 Hx Sleep Apnea No 08/30/25 12:03 CPAP BIPAP Do you snore loudly (louder No 08/30/25 12:03 than talking or can be heard Do you often feel tired/ No 08/30/25 12:03 fatigued/ sleepy during daytime? Has anyone observed you stop No 08/30/25 12:03 breathing during sleep? STOP Results Negative 08/30/25 12:03 QUESTION #5 FULL TEXT : Do you snore loudly (louder than talking or can be heard through closed doors)? Tobacco Use History Tobacco Use History - residential interior designer: Tobacco Use History - residential interior designer Tobacco Use Smoking Status Never smoker 08/30/25 12:03 Hx Tobacco Use No 08/30/25 12:03 Years Smoking Packs Smoked per Day Smoking Cessation Date was within the last 15 years Hx Smoking Cessation Date Hx Smoking Cessation Counseling Hematologic Medial History Hematologic Hx - residential interior designer: Hematologic Medical Hx - connie scratcher Hx of Blood Transfusion No 08/30/25 12:03 Hx of Transfusion in last 3 No 08/30/25 12:03 Months Date of Last Transfusion (if within last 3 months) Ever experience any problems No 08/30/25 12:03 with transfusion(s)? Specify any problems Hx of Preganancy in last 3 Yes 08/30/25 12:03 Months Nurse Filling Out Transfusion MGRIFFITH 08/30/25 12:03 & Questions: Date: 08/30/25 08/30/25 12:03 Time: 12:05 08/30/25 12:03 Patient unable to answer at this time (ie. confused, unrespo /Reproduction History /Reproductive History - residential interior designer: /Reproductive Hx- residential interior designer Hx Now Gestational Age (in weeks): EDC: Hx Hx Para Hx Section SAB No 08/03/25 13:00 Active Medications Active Medications: Current Medications Generic Name Dose Route Start Last Admin Trade Name Freq PRN Reason Stop Dose Admin Doxycycline Monohydrate 100 mg 08/30/25 13:00 08/30/25 12:26 Doxycycline 100 Mg Capsule PO 08/30/25 13:01 100 mg PREOP ONE Administration Lactated Ringer's 1,000 mls @ 15 mls/hr 08/30/25 12:15 08/30/25 12:26 IV 15 mls/hr .Q48H VERNON Administration PFSH Medical History Non-smoker heart deceleration Rh negative state in antepartum period Supervision of normal , antepartum Home Medications Medication Instructions Recorded Last Taken Type vitamins no.163-iron 1 tab PO DAILY 07/06/25 08/29/25 History bis-gly 20 mg-folate no.10 1 mg tablet (PNV Tabs 20-1) Allergy/AdvReac Type Severity Reaction Status Date / Time No Known Allergies Allergy Verified 08/30/25 11:59 Surgical History H/O dilation and curettage Social History adopted: No household members: spouse and children housing: house number of children: 2 current occupational status: unemployed 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 current occupational exposures/hazards: No pets and animals: No history of recent travel: No sexually active: Yes Smoking Status: Never smoker alcohol intake: never substance use type: does not use well-balanced diet: daily or most days caffeine: No eating out: rarely or never during the past year weight has: remained stable what type of physical activity do you participate in: walking and other details: core exercises frequency: daily duration: 45-60 minutes/day yesika/jew: Shinto seatbelt use: always do you feel safe at home: Yes 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
--- NOTE | 2025-08-30 13:00 | POC_PTH ---
PATIENT: GREGORY RANKIN LOC: [facility] [place] U#:[id number] AGE/SX: 25/F ROOM: RE08/30/[address]: Dr. Latasha Becker DO : 2000 BED: DIS: 08/30/2025 SPEC #: [id number] RECD: 08/30/25 14:25 STATUS: AVINASH RERolanda #: [id number] KHADIJAH: 08/30/25 13:[address]: Latahsa Becker DEPT: SURGICAL PATHOLOGY RECD BY: Channing Guillen ENTERED: 08/30/25 14:50 SP TYPE: PROD CONC OTHR DR: No Primary Care Phys Tissues: A - Product of conception, NOS Procedures: Surgery Specimen Level IV HEADER OPERATION: Dilation and curettage, suction PRE-OP DIAGNOSIS: Retained products of conception TISSUE SUBMITTED: A- Products of conception MICROSCOPIC DIAGNOSIS A. Uterine contents: * Inflamed and degenerating decidua with dilated vessels and organizing hemorrhage * Endometrium with secretory and proliferative changes MICROSCOPIC DESCRIPTION Slides are reviewed. GROSS DESCRIPTION A. Received in formalin labeled with the patient's name and date of . Designated as " products of conception" is a 3.9 x 2.8 x 0.6 cm aggregate of pink-red tissue fragments and clotted blood. parts are not present. Entirely submitted in 2 cassettes. MI 08/30/2025 CPT:98588
[2025-08-30] MEDS: Midazolam 2 MG/2 ML Syringe IV (13:04)
[2025-08-30] MEDS: Lidocaine 1% (5 ml sdv) 5 ML Vial IV (13:05)
[2025-08-30] MEDS: fentaNYL 100 MCG/2 ML Ampul 50 MCG IV (13:09)
--- NOTE | 2025-08-30 13:22 | OP.PCM_ITS ---
Multi Select Codes Urinary/Genital Urinary/Genital CPT Codes: 76023 Trmt of incomplete Ab, any TM Operative Report (Standard) Operative Information Date of Procedure: 08/30/25 Pre-Operative Diagnosis: retained products of conception Post-Operative Diagnosis: retained products of conception Surgery/Procedure Performed: suction dilation and curettage shoe parts molder: No Type of Anesthesia: MAC/Supplemental RN Documented Start/Stop Times: Operation Date: 08/30/25 13:00 Case Time Into Pre-Op 08/30/25 11:38 Out of Pre-Op 08/30/25 12:56 Anesthesia Start 08/30/25 12:59 Into Room 08/30/25 12:59 Procedure Start 08/30/25 13:14 Procedure Start Time: 13:14 Procedure Stop Time: 13:22 Select all DRAINS/GRAFTS/IMPLANTS that apply: None Estimated Blood Loss: 5cc Specimen collected: Yes Description of specimen(s) removed: endometrial curetting's/products of conception Description of surgery: Patient was taken to the operating room and placed under MAC local anesthesia. She was prepped and draped in the normal sterile fashion the dorsal lithotomy position. Bladder was drained of clear urine and anterior lip of the cervix was grasped and the uterus sounded to 8cm. Cervix was progressively dilated to allow passage of a size 7 suction curette. Progressive passes were made removing the retained products of conception without complication. Sharp curettage confirmed complete removal of the retained products. This was performed under ultrasound guidance to ensure all products were removed. All instruments were removed from the vagina and excellent hemostasis was noted and the patient was taken to recovery in stable condition. IM methergine was given to help contract the uterus. Surgical Findings: small amount of products of conception removed. Complications Complications: No Admit VTE Documentation VTE Present on Admission: No VTE Mechan Device Prophylaxis: SCD's VTE Pharm Prophylaxis ordered?: No
--- NOTE | 2025-08-30 13:32 | PCM.POST.ANE ---
Anesthesia: Postop Eval I Current Vital Signs Temperature: 97.2 F Pulse Rate: 81 Blood Pressure: 97/63 Respiratory Rate: 12 Pulse Ox: 97 Oxygen Delivery Method: Room Air Assessment Airway patent: Yes Spontaneous unlabored respirations: Yes Mental status: Awake and Calm nausea: No Vomiting: No Anesthesia Complication: No Fluid Hydration Crystalloid volume administer (ml): 700 Total IV fluid infused: 700 Progress Note Anesthesia document: Postop Eval 1 completed: Yes
--- NOTE | 2025-08-30 16:27 | POSTOPAN2_ITS ---
Anesthesia Postop Eval I Sum Postop Eval Completion status Anesthesia document: Postop Eval 1 completed: Yes Anesthesia Postop Eval I Summary Anesthesia Postop Eval I Summary: Anesthesia Postop Eval I: Assessment Summary Airway patent Yes 08/30/25 13:33 CELL EFFICIENCY SUPERVISOR.SHOF Spontaneous unlabored Yes 08/30/25 13:33 CELL EFFICIENCY SUPERVISOR.SHOF respirations Mental status Awake,Calm 08/30/25 13:33 CELL EFFICIENCY SUPERVISOR.SHOF nausea No 08/30/25 13:33 CELL EFFICIENCY SUPERVISOR.SHOF Vomiting No 08/30/25 13:33 CELL EFFICIENCY SUPERVISOR.SHOF Anesthesia Postop Eval I: Fluid Summary Crystalloid volume administer 700 08/30/25 13:33 CELL EFFICIENCY SUPERVISOR.SHOF (ml) Colloids volume administered ( ml) Blood Product volume administered (ml) Total IV fluid infused 700 08/30/25 13:33 CELL EFFICIENCY SUPERVISOR.SHOF Anesthesia Postop Eval I: Summary Notes Anesthesia Complication No 08/30/25 13:33 CELL EFFICIENCY SUPERVISOR.SHOF Anesthesia Complication Comment: Post-operative progress note Anesthesia: Postop Eval II Evaluation Mental status: Awake and Calm Pain Level: 1 nausea: No Vomiting: No Complications Anesthesia Complication: No
--- NOTE | 2025-08-30 16:27 | PCM.POSTANE2 ---
Anesthesia Postop Eval I Sum Postop Eval Completion status Anesthesia document: Postop Eval 1 completed: Yes Anesthesia Postop Eval I Summary Anesthesia Postop Eval I Summary: Anesthesia Postop Eval I: Assessment Summary Airway patent Yes 08/30/25 13:33 [email or web address] Spontaneous unlabored Yes 08/30/25 13:33 [email or web address] respirations Mental status Awake,Calm 08/30/25 13:33 [email or web address] nausea No 08/30/25 13:33 [email or web address] Vomiting No 08/30/25 13:33 [email or web address] Anesthesia Postop Eval I: Fluid Summary Crystalloid volume administer 700 08/30/25 13:33 [email or web address] (ml) Colloids volume administered ( ml) Blood Product volume administered (ml) Total IV fluid infused 700 08/30/25 13:33 [email or web address] Anesthesia Postop Eval I: Summary Notes Anesthesia Complication No 08/30/25 13:33 [email or web address] Anesthesia Complication Comment: Post-operative progress note Anesthesia: Postop Eval II Evaluation Mental status: Awake and Calm Pain Level: 1 nausea: No Vomiting: No Complications Anesthesia Complication: No
== END 2025-08-30 15:23 | disposition home or self-care (01) ==
LOC: SDC 11:36 → AC 11:37
PROVIDERS: Referring Provider Obstetrics & Gynecology; Visit Provider Obstetrics & Gynecology
PROC: (CPT 59812; principal; 2025-08-30 12:45)
DX: O03.4 Incomplete spontaneous abortion without complication (principal); N71.9 Inflammatory disease of uterus, unspecified
CPT/HCPCS: 59812; 01965; 85027; 86850; 86900; 86901; 88305; J2405